=== PATIENT | male | born 1955 | race Caucasian/White ===

== ENCOUNTER 2023-08-15 14:46 | Emergency (ER) | payer MEDICARE, OTHER, SELFPAY ==
[2023-08-15 14:52] VITALS: BP 123/77
--- NOTE | 2023-08-15 15:34 | ED.MUSCINJ ---
HPI-Injury
General
Chief Complaint: Fall
Source: patient
Exam Limitations: none
Time Seen by Provider: 08/15/23 15:20
Nursing documentation reviewed up to this point in time: agreed with
Travel History
Have you had any contact with someone who has COVID-19?: No
Do you have any symptoms of coronavirus? Fever > 100 degrees, chills, cough, shortness of breath, sore throat, loss of taste or smell, muscle aches, or headache?: No
History of Present Illness-Injury
Is this injury a work related problem?: No
Is pt an associate of [facility]?: No
Initial Injury comments:
Patient states he tripped over his dog last PM, landed o left hand. Complains of pain and swelling to left hand. Sustained deep abrasions to his hand 2 days ago working on a machine. Concerned that it is looking red. No fever/chills. Brought to
ED by spouse for eval.
Past History
Past History
ED Past Medical History: GERD, HTN, Other (Multiple sclerosis; previous GI bleeds, Aortic insufficiency, mitral valve prolapse, rheumatic fever, nephrolithiasis), Other (Sepsis, cervicothoracic epidural abscess (MSSA) July 2010, C. difficile,
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
ED Past Surgical History: Cardiac (Aortic valve replacement 2016), Cholecystectomy, Orthopedic (Lumbar laminectomy, right middle toe amputation, bilateral hip replacements x2, bilateral knee replacements x2, right wrist surgery 2008) and Other
(Epidural abscess drainage August 2010 at [facility]; baclofen pump implantation; gastric bypass)
Social History
Tobacco: Former smoker
Alcohol: None
Drug: None
Personal:
Living: with family
Employment: Employed
Family History
Family History: Other (Reviewed and non-contributory)
Review of Systems
Review of Systems
Allergies reviewed?: Yes
All Other Systems: ROS reviewed and negative except as documented in HPI and ROS
Skin: Reports other (Deep abrasions with granulation to left dorsal hand. Mild surrounding erythema to hand, bruising and swelling present. No drainage from wounds)
Neurological: Reports no symptoms
Psychiatric: Reports no symptoms
Musculoskeletal Injury Exam
Musculoskeletal Injury Exam
Left Hand:
Pain with Movement?: Moderate
Tender to palpation?: Moderate
Soft tissue swelling?: Moderate
External deformity and angulation?: None
Joint effusion?: None
Contusion?: Moderate
Hematoma-local bleeding into tissue?: Moderate
Strain- Sprain- Tear (Connective tissue injury)?: Moderate
Crepitus with movement?: No
Joint instability?: No
Malalignment/deformity?: No
Range of motion: Full
Distal skin color and temperature: normal-warm & good color
Capillary Refill: normal
Normal distal neurovascular exam?: Yes
Peripheral Pulses: radial (left): 3+
Skin Exam
Abrasion
Left Dorsal Hand:
Description of abrasion: deep/clean
Phy Exam
General Physical Exam
General Presentation: well appearing and no apparent distress
General age: appears stated age
General Skin: warm and dry
General Habitus: normal
General Mental: alert
Musculoskeletal Exam
Musculoskeletal Exam: neuro vasc intact
Skin Exam
Skin Exam: normal color, warm/dry and no rash
Psychiatric Exam
Psychiatric Exam: normal mood/affect
Injury Course
Orders/Labs/Results
Orders:
Orders
08/15/23 14:57
Hand, Left 3 View [CR Hand - Left Min 3 Views] Urgent
Comment:
Reason For Exam: fall, pain swelling
08/15/23 15:34
Thumb Spica Left-Treatment ONCE
Doxycycline [Vibramycin] 100 mg PO NOW STA
*Radiology
Radiology exam reviewed: radiology read reviewed
*Pulse Oximetry
Patient hypoxic: no
*Critical Care Note
Total Time (30-74mins, 75-104mins- exclusive of procedures): Not Applicable
ED Attending Note
-
Portions of this chart may have been created with voice recognition software.� Occasional wrong word or��sound alike� substitutions may have occurred due to the inherent limitations of voice recognition software.
Discharge Plan
Departure
Patient Disposition: Home (Routine Discharge)
Date of Disposition: 08/15/23
Time of Disposition: 15:57
Patient with high blood pressure during this ER visit?: No
Condition: Good
Covid-19: Not Applicable
Discharge Problem:
Contusion of hand
Instructions: Wound Care (DC), Contusion (DC), Preventing falls in adults
Prescriptions:
New
doxycycline hyclate 100 mg capsule
100 mg PO BID Qty: 14 0RF
No Action
esomeprazole magnesium [Nexium] 40 MG capsule,delayed release(DR/EC)
40 mg PO BID
hydroxychloroquine 200 MG tablet
200 mg PO BID
ondansetron HCl 4 MG tablet
4 mg PO BIDPRN PRN (Reason: nausea)
ferrous sulfate [iron] 325 MG tablet
325 mg PO BID
ergocalciferol (vitamin D2) 50,000 UNITS capsule
50,000 units PO JACOB
venlafaxine [Effexor XR] 150 mg Capsule,Extended Release 24hr
150 mg PO BID
morphine [MS Contin] 15 mg Tablet Extended Release
15 mg PO DAILY@1200
ascorbic acid (vitamin C) [Vitamin C] 1,000 mg Tablet
1,000 mg PO DAILY
carvedilol 6.25 mg Tablet
3.125 mg PO BID
cyanocobalamin (vitamin B-12) 1,000 mcg Tablet
1,000 mcg PO DAILY
losartan 50 mg Tablet
50 mg PO BID
morphine 30 mg tablet extended release
30 mg PO BID@0800,2000
Nayzilam 5 mg/spray (0.1 mL) [place],Non-Aerosol
5 mg INTRANASAL DAILYPRN PRN (Reason: SEIZURE >3MINUTES)
Medical Marijuana
0.5 - 1 ml PO HS
sennosides [senna] 8.6 mg Tablet
8.6 mg PO BIDPRN PRN (Reason: constipation)
sucralfate [Carafate] 1 gram Tablet
0.5 g PO ACHS
clopidogrel [Plavix] 75 mg Tablet
75 mg PO DAILY
amlodipine 5 mg Tablet
5 mg PO BID
baclofen 10 mg Tablet
30 mg PO TID
clotrimazole-betamethasone 1-0.05 % Cream
1 applic TOPICAL BIDPRN PRN (Reason: groin)
diazepam [Valium] 5 mg Tablet
5 mg PO Q6HPRN PRN (Reason: muscle spasms)
oxycodone 5 mg Tablet
5 mg PO Q4HPRN PRN (Reason: break through pains)
modafinil 100 mg Tablet
100 mg PO BID@0800,1200
lamotrigine 100 mg Tablet
100 mg PO BID
Activity Restrictions/Additional Instructions:
Follow up with your family doctor.
Interventions
Interventions:
*Risk Screen - Suicide Last Done: 08/15/23 14:52
*General Assessment Last Done: 08/15/23 14:52
*Neglect/Abuse Screening Last Done: 08/15/23 14:52
Discharge Date and Time
Print Language: HEBREW
--- NOTE | 2023-08-15 15:59 | ED.MUSCINJ ---
HPI-Injury
General
Chief Complaint: Fall
Source: patient
Exam Limitations: none
Time Seen by Provider: 08/15/23 15:20
Nursing documentation reviewed up to this point in time: agreed with
Travel History
Have you had any contact with someone who has COVID-19?: No
Do you have any symptoms of coronavirus? Fever > 100 degrees, chills, cough, shortness of breath, sore throat, loss of taste or smell, muscle aches, or headache?: No
History of Present Illness-Injury
Is this injury a work related problem?: No
Is pt an associate of [facility]?: No
Initial Injury comments:
Patient states
Past History
Past History
ED Past Medical History: GERD, HTN, Other (Multiple sclerosis; previous GI bleeds, Aortic insufficiency, mitral valve prolapse, rheumatic fever, nephrolithiasis), Other (Sepsis, cervicothoracic epidural abscess (MSSA) July 2010, C. difficile,
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
ED Past Surgical History: Cardiac (Aortic valve replacement 2016), Cholecystectomy, Orthopedic (Lumbar laminectomy, right middle toe amputation, bilateral hip replacements x2, bilateral knee replacements x2, right wrist surgery 2008) and Other
(Epidural abscess drainage August 2010 at [facility]; baclofen pump implantation; gastric bypass)
Social History
Tobacco: Former smoker
Alcohol: None
Drug: None
Personal:
Living: with family
Employment: Employed
Family History
Family History: Other (Reviewed and non-contributory)
Injury Course
Orders/Labs/Results
Orders:
Orders
08/15/23 14:57
Hand, Left 3 View [CR Hand - Left Min 3 Views] Urgent
Comment:
Reason For Exam: fall, pain swelling
08/15/23 15:34
Thumb Spica Left-Treatment ONCE
Doxycycline [Vibramycin] 100 mg PO NOW STA
ED Attending Note
-
Portions of this chart may have been created with voice recognition software.� Occasional wrong word or��sound alike� substitutions may have occurred due to the inherent limitations of voice recognition software.
Discharge Plan
Departure
Patient Disposition: Home (Routine Discharge)
Date of Disposition: 08/15/23
Time of Disposition: 15:57
Patient with high blood pressure during this ER visit?: No
Condition: Good
Covid-19: Not Applicable
Discharge Problem:
Contusion of hand
Instructions: Wound Care (DC), Contusion (DC), Preventing falls in adults
Prescriptions:
New
doxycycline hyclate 100 mg capsule
100 mg PO BID Qty: 14 0RF
No Action
esomeprazole magnesium [Nexium] 40 MG capsule,delayed release(DR/EC)
40 mg PO BID
hydroxychloroquine 200 MG tablet
200 mg PO BID
ondansetron HCl 4 MG tablet
4 mg PO BIDPRN PRN (Reason: nausea)
ferrous sulfate [iron] 325 MG tablet
325 mg PO BID
ergocalciferol (vitamin D2) 50,000 UNITS capsule
50,000 units PO JACOB
venlafaxine [Effexor XR] 150 mg Capsule,Extended Release 24hr
150 mg PO BID
morphine [MS Contin] 15 mg Tablet Extended Release
15 mg PO DAILY@1200
ascorbic acid (vitamin C) [Vitamin C] 1,000 mg Tablet
1,000 mg PO DAILY
carvedilol 6.25 mg Tablet
3.125 mg PO BID
cyanocobalamin (vitamin B-12) 1,000 mcg Tablet
1,000 mcg PO DAILY
losartan 50 mg Tablet
50 mg PO BID
morphine 30 mg tablet extended release
30 mg PO BID@0800,2000
Nayzilam 5 mg/spray (0.1 mL) [place],Non-Aerosol
5 mg INTRANASAL DAILYPRN PRN (Reason: SEIZURE >3MINUTES)
Medical Marijuana
0.5 - 1 ml PO HS
sennosides [senna] 8.6 mg Tablet
8.6 mg PO BIDPRN PRN (Reason: constipation)
sucralfate [Carafate] 1 gram Tablet
0.5 g PO ACHS
clopidogrel [Plavix] 75 mg Tablet
75 mg PO DAILY
amlodipine 5 mg Tablet
5 mg PO BID
baclofen 10 mg Tablet
30 mg PO TID
clotrimazole-betamethasone 1-0.05 % Cream
1 applic TOPICAL BIDPRN PRN (Reason: groin)
diazepam [Valium] 5 mg Tablet
5 mg PO Q6HPRN PRN (Reason: muscle spasms)
oxycodone 5 mg Tablet
5 mg PO Q4HPRN PRN (Reason: break through pains)
modafinil 100 mg Tablet
100 mg PO BID@0800,1200
lamotrigine 100 mg Tablet
100 mg PO BID
Activity Restrictions/Additional Instructions:
Follow up with your family doctor.
Interventions
Interventions:
*Risk Screen - Suicide Last Done: 08/15/23 14:52
*General Assessment Last Done: 08/15/23 14:52
*Neglect/Abuse Screening Last Done: 08/15/23 14:52
Discharge Date and Time
Print Language: CHILEAN
[2023-08-15] MEDS: VIBRAMYCIN 100 MG PO (16:14)
[2023-08-15 16:31] VITALS: BP 122/67
== END 2023-08-15 16:32 | disposition home or self-care (01) ==
LOC: EMR 14:46
PROVIDERS: EMERGENCY PHYSICIAN Emergency Medicine; FAMILY PHYSICIAN Family Medicine
DX: S60.222A Contusion of left hand, initial encounter (principal); W01.0XXA Fall on same level from slipping, tripping and stumbling without subsequent striking against object, initial encounter
CPT/HCPCS: 99283; 73130

== ENCOUNTER 2023-11-11 02:14 | Inpatient (IN) | payer MEDICARE, OTHER, SELFPAY ==
[2023-11-10] VITALS (10 sets, daily range): BP systolic 66–94; BP diastolic 43–62; BMI 25.1
[2023-11-10] MEDS: NSS 1000 IV ×2 (22:20→23:13)
[2023-11-10 22:23] LABS: % Basophils 0.3 % (0-2); % Eosinophils 2.8 % (0-6); % Immature Granulocytes 0.3 % (0-0.5); % Lymphocytes 22.6 % (20.5-51.1); % Monocytes 11.4 % (1.7-9.3); % Neutrophils 62.6 % (42.2-75.2); Absolute Eosinophils 0.3 10^3/uL (0-0.7); Absolute Neutrophils 5.6 10^3/uL (1.4-6.5); Hematocrit 36.3 % (39.0-52.0); Hemoglobin 11.3 g/dL (13.0-18.0); Mean Corp Hgb Conc. 31.1 g/dL (33.0-37.0); Mean Corpuscular Hgb 28.5 pg (27.0-31.0); Mean Corpuscular Volume 91.4 fL (80.0-94.0); Mean Platelet Volume 10.2 fL (7.4-10.4); Nucleated Red Blood Cells % 0 % (-); Platelet Count 135 10^3/uL (130-400); Red Blood Cell Count 3.97 10^6/uL (4.70-6.10); Red Cell Dist. Width 16.9 % (11.5-14.5); White Blood Cell Count 8.9 10^3/uL (4.8-10.8)
[2023-11-10 22:37] LABS: ALT (SGPT) 35 U/L (0-50); AST (SGOT) 41 U/L (17-59); Albumin 3.8 g/dl (3.5-5.0); Alkaline Phosphatase 224 U/L (38-126); Blood Urea Nitrogen 47 mg/dl (9-20); Calcium 8.5 mg/dl (8.4-10.2); Carbon Dioxide 27 mmol/L (22-30); Chloride 106 mmol/L (98-107); Estimated Creatinine Clearance 40 ml/min; Glucose 106 mg/dl (70-99); Potassium 3.6 mmol/L (3.5-5.1); Sodium 140 mmol/L (135-145); Total Bilirubin 0.4 mg/dl (0.2-1.3); Total Protein 6.1 g/dl (6.3-8.2); eGFR 49.77
[2023-11-10 22:39] LABS: Alcohol None Detected
--- NOTE | 2023-11-10 23:34 | ED.GENMED ---
Addendum entered and electronically signed by Clitfon Zamudio DO 11/11/23 03:17:
Procedure note intubation
[place] scope 7.5 ET tube,
100 [place] X10 milligrams of etomidate
No complications
Addendum entered and electronically signed by Clifton Zamudio DO 11/11/23 02:37:
ABG noted, patient noncompliant with the BiPAP we will try see if he wakes up if not low threshold to intubate
Original Note:
History of Present Illness
General
Chief Complaint: Blood Pressure Problem
Source: patient and spouse
Exam Limitations: clinical condition and altered mental status
Time Seen by Provider: 11/10/23 22:57
Nursing documentation reviewed up to this point in time: agreed with
History of Present Illness
History of Present Illness:
68-year-old male history of MS, presents with low blood pressure and confusion
Onset earlier today, thought he looked confused about eating, which is not uncommon for him,
No fevers no nausea or vomiting no dark urine, he just finished steroids for hand inflammation condition thinks it was about a week of steroids stopped about 2 days ago prescribed by his neurologist she believes
Not typically on steroids, has had a stroke previously, baseline is able to ambulate and communicate
states that the patient has had sepsis previously not for years, she also pulled a tick off his scalp a few days ago
Past History
Past History
ED Past Medical History: CVA, GERD, HTN, Other (Multiple sclerosis; previous GI bleeds, Aortic insufficiency, mitral valve prolapse, rheumatic fever, nephrolithiasis), Other (Sepsis, cervicothoracic epidural abscess (MSSA) July 2010, C. difficile,
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
ED Past Surgical History: Cardiac (Aortic valve replacement 2016), Cholecystectomy, Orthopedic (Lumbar laminectomy, right middle toe amputation, bilateral hip replacements x2, bilateral knee replacements x2, right wrist surgery 2008) and Other
(Epidural abscess drainage August 2010 at [facility]; baclofen pump implantation; gastric bypass)
Social History
Tobacco: Former smoker
Alcohol: None
Drug: None
Personal:
Living: with family
Employment: Employed
Family History
Family History: Other (Reviewed and non-contributory)
Review of Systems
Review of Systems
All Other Systems: Not applicable
Constitutional: Denies fever or fatigue
Respiratory: Reports no symptoms
Cardiac: Reports no symptoms
ABD/GI: Reports no symptoms
: Reports no symptoms
Phy Exam
Physical Exam
Physical Exam:
Physical Exam
General: Lethargic ill-appearing male hypotensive
Neck: Lips are dry
Heart: Regular
Lungs: No wheezing
Abdomen: Soft
Neuro: Responds to painful stimuli
Skin: no rash
Psychiatric: Unable to assess
Extremities: no edema.
Course
Orders/Labs/Results
Orders:
Orders
11/10/23 22:16
Alcohol Urgent
Complete Blood Count/With Diff Urgent
Comprehensive Metabolic Panel Urgent
Cortisol, Random Urgent
Comment: ADD ON
TSH Urgent
Comment: ADD ON
11/10/23 22:18
Add On- LAB Urgent
Tests Added?: alcohol level
11/10/23 22:20
0.9% Sodium Chloride 1000 ml [Nss] 1,000 ml IV BOLUS
11/10/23 23:07
Rectal Temp- Treatment ONCE
11/10/23 23:08
Add On- LAB Urgent
Tests Added?: cortisol
Straight cath- Treatment ONCE
0.9% Sodium Chloride 1000 ml [Nss] 1,000 ml IV BOLUS
CR Chest Portable - 1 View Urgent
Comment:
Reason For Exam: sepsis
Reason Study Needs to be Portable: Patient Unstable
11/10/23 23:09
Electrocardiogram (*1) Urgent
Reason for Study: Abdominal Pain
EKG- Treatment ONCE
Hydrocortisone Sod Succinate [Solu-Cortef] 100 mg IV NOW STA
11/10/23 23:11
Troponin I Urgent
11/10/23 23:31
Add On- LAB Urgent
Tests Added?: tsh
Piperacillin/Tazo 3.375 Gram [Zosyn] 3.375 gram in 50 ml IV NOW
11/10/23 23:36
Urinalysis Reflex To Culture Urgent
Date Specimen was Collected: 11/10/23
Time Specimen was Collected: 23:28
Urine Microscopic Reflex Cult Urgent
Urine Culture Urgent
CHRISTINA Source: U
Specimen Description:
Date Specimen was Collected: 11/10/23
Time Specimen was Collected: 23:28
11/11/23 00:03
CT Abd/pel Without Iv Or Oral Urgent
Reason For Exam: arf ? sepsis
CT Head W/o Iv Contrast Urgent
Reason For Exam: coma
11/11/23 00:56
ABG [Arterial Blood Gas] Urgent
%Oxygen/Room Air: ra
11/11/23 01:00
NORepinephrine 4 MG/250 ML [Levophed] 4 mg in 250 ml IV PER PROTOCOL
Initial dose in mcg/min, then titrate:: 2
Titrate to keep:: SBP > 90 mmHg
Titrate by mcg/min:: 1-2 mcg/min
Frequency of titrations (minutes):: 5
Maximum dose in ICU in mcg/min:: 30
Maximum dose in IMU in mcg/min:: 8
Maximum dose in IVU in mcg/min:: 4
Begin to taper infusion when:: Remained at goal for 4hrs
Taper by mcg/min:: 1-2 mcg/min
Frequency of taper (minutes) if patient maintains goal:: 30
Taper to off?: Yes
If infusion off & no longer maintaining goal:: Contact Provider
Abnormal Lab Results
11/10/23 11/10/23
22:16 23:36
RBC 3.97 L 10^6/uL
(4.70-6.10)
Hgb 11.3 L g/dL
(13.0-18.0)
Hct 36.3 L %
(39.0-52.0)
MCHC 31.1 L g/dL
(33.0-37.0)
RDW 16.9 H %
(11.5-14.5)
Absolute Monos (auto) 1.0 H 10^3/uL
(0.1-0.6)
Monocytes % 11.4 H %
(1.7-9.3)
BUN 47 H mg/dl
(9-20)
Creatinine 1.5 H mg/dL
(0.7-1.3)
Glucose 106 H mg/dl
(70-99)
Alkaline Phosphatase 224 H U/L
(38-126)
Total Protein 6.1 L g/dl
(6.3-8.2)
Urine Ketones Trace A
(Negative)
Leukocyte Esterase Rfl Trace A
(Negative)
Urine Bacteria (Reflex) Moderate A
(Negative)
11/10/23 22:16
11/10/23 22:16
Vital Signs
Initial and Last Documented VS:
Initial Vital Signs
Temp Pulse Resp BP Pulse Ox
97.8 F 66 10 86/57 99
11/10/23 22:04 11/10/23 22:04 11/10/23 22:04 11/10/23 22:04 11/10/23 22:04
Last Documented Vital Signs
Temp Pulse Resp BP Pulse Ox
96.9 F L 67 12 100/65 99
11/10/23 23:27 11/11/23 01:15 11/11/23 01:15 11/11/23 01:15 11/11/23 01:15
MDM/Problems Addressed
Differential Diagnosis Includes:
Hypotension concern for sepsis adrenal insufficiency cardiac GI bleeding
MDM/Problems Addressed:
Low blood pressure confusion
Chronic conditions affecting care: Neurological disorder
Acute Exacerbation and/or Progression of Chronic Illness: Neurological disorder
*Radiology
Radiology exam reviewed: preliminary read by ED provider
*Pulse Oximetry
Patient hypoxic: no
*EKG
Interpreted by ED Provider?: Yes
Interpretation: abnormal
Comparison EKG: no comparison EKG present
Heart Rate: 78
Rate: normal
Rhythm: sinus
Ischemia: non-specific ST changes
*Hypo Dipper Interpretation
Rate: normal
Interpretation: normal
Heart Rate: 78
Rhythm: sinus
*Critical Care Note
Total Time (30-74mins, 75-104mins- exclusive of procedures): 45
comment:
CRITICAL CARE STATEMENT: A total of 45 minutes of critical care time was provided for this patient. This includes management of unstable vital signs, evaluation of the patient at bedside, reviewing the patient's pertinent medical records discussion
with EMS providers and patient's family in addition to discussion with consultants, review of old EKGs and review of pertinent medical records. This time with separate from time utilized to perform the aforementioned documented procedures
Patient Management
Social determinants of health affecting care: Living situation and Strong social support
Escalation/DeEscalation of care consider admission/obs:
Patient will certainly require admission
Update Note
Update Note:
Patient will receive 30 cc/kg fluid bolus, broad-spectrum antibiotics rest of steroids, CT of the head believe stroke is unlikely CT of the abdomen to rule out hydro or obstructing stone
ED Attending Note
-
Portions of this chart may have been created with voice recognition software.� Occasional wrong word or��sound alike� substitutions may have occurred due to the inherent limitations of voice recognition software.
Discharge Plan
Departure
Patient Disposition: Admit
Date of Disposition: 11/11/23
Time of Disposition: 00:58
Admit to: ICU
Presentation/result/management discussed w/ accepting MD/DO: Hospitalist
Patient with high blood pressure during this ER visit?: No
Condition: Serious
Covid-19: Not Applicable
Discharge Problem:
Multiple sclerosis, Altered mental status, Sepsis syndrome
Prescriptions:
No Action
esomeprazole magnesium [Nexium] 40 MG capsule,delayed release(DR/EC)
40 mg PO BID
hydroxychloroquine 200 MG tablet
200 mg PO BID
ondansetron HCl 4 MG tablet
4 mg PO BIDPRN PRN (Reason: nausea)
ferrous sulfate [iron] 325 MG tablet
325 mg PO BID
ergocalciferol (vitamin D2) 50,000 UNITS capsule
50,000 units PO ARAMBULA
venlafaxine [Effexor XR] 150 mg Capsule,Extended Release 24hr
150 mg PO BID
morphine [MS Contin] 15 mg Tablet Extended Release
15 mg PO DAILY@1200
ascorbic acid (vitamin C) [Vitamin C] 1,000 mg Tablet
1,000 mg PO DAILY
carvedilol 6.25 mg Tablet
3.125 mg PO BID
cyanocobalamin (vitamin B-12) 1,000 mcg Tablet
1,000 mcg PO DAILY
losartan 50 mg Tablet
50 mg PO BID
morphine 30 mg tablet extended release
30 mg PO BID@0800,2000
Nayzilam 5 mg/spray (0.1 mL) [place],Non-Aerosol
5 mg INTRANASAL DAILYPRN PRN (Reason: SEIZURE >3MINUTES)
Medical Marijuana
0.5 - 1 ml PO HS
sennosides [senna] 8.6 mg Tablet
8.6 mg PO BIDPRN PRN (Reason: constipation)
sucralfate [Carafate] 1 gram Tablet
0.5 g PO ACHS
clopidogrel [Plavix] 75 mg Tablet
75 mg PO DAILY
amlodipine 5 mg Tablet
5 mg PO BID
baclofen 10 mg Tablet
30 mg PO TID
clotrimazole-betamethasone 1-0.05 % Cream
1 applic TOPICAL BIDPRN PRN (Reason: groin)
diazepam [Valium] 5 mg Tablet
5 mg PO Q6HPRN PRN (Reason: muscle spasms)
oxycodone 5 mg Tablet
5 mg PO Q4HPRN PRN (Reason: break through pains)
modafinil 100 mg Tablet
100 mg PO BID@0800,1200
lamotrigine 100 mg Tablet
100 mg PO BID
doxycycline hyclate 100 mg capsule
100 mg PO BID Qty: 14 0RF
Interventions
Interventions:
*Risk Screen - Suicide Last Done: 11/10/23 22:08
*General Assessment Last Done: 11/10/23 22:08
*Neglect/Abuse Screening Last Done: 11/10/23 22:08
*ED COVID-19 Vaccine History Last Done: 11/10/23 22:08
ED- Cardiac Assessment Last Done: 11/10/23 22:15
ED- Neurological Assessment Last Done: 11/10/23 22:15
ED- Pulmonary Assessment Last Done: 11/10/23 22:15
Discharge Date and Time
Print Language: GUATEMALAN
[2023-11-10] MEDS: SOLU-CORTEF 100 MG IV (23:39)
[2023-11-10] MEDS: ZOSYN 50 IV (23:40)
[2023-11-10 23:42] LABS: Troponin I < 0.012 ng/ml
[2023-11-10 23:46] LABS: Urine Albumin Negative (Neg - Trace); Urine Bilirubin Negative (Negative); Urine Character Clear (Clear); Urine Color Amber; Urine Glucose Negative (Negative); Urine Ketone Trace (Negative); Urine Leukocyte Trace (Negative); Urine Nitrite Negative (Negative); Urine Occult Blood Negative (Negative); Urine Specific Gravity 1.025 (<1.030); Urine Urobilinogen 1+ (Neg - 1+)
[2023-11-11] VITALS (44 sets, daily range): BP systolic 70–151; BP diastolic 45–84; BMI 25.7
[2023-11-11 00:23] LABS: Urine Calcium Oxalate Crystals Seen; Urine Hyaline Cast >15 /LPF (0-2); Urine Mucus Moderate; Urine Squamous Cell >30 /LPF (Few)
[2023-11-11 00:24] LABS: Urine Bacteria Moderate (Negative); Urine Red Blood Cell 0-2 /HPF (0-2)
[2023-11-11] MEDS: LEVOPHED 250 IV (01:02)
--- NOTE | 2023-11-11 01:43 | HPS.HSE ---
Addendum entered and electronically signed by David Horton MD 11/11/23 18:50:
Correction and addendum
Shock pathophysiology with hypothermia
DDX; Septic shock vs. secondary acute adrenal insufficiency due to sudden withdrawal of steroids
Currently source of sepsis is uncertain but at risk for hardware infection ( multiple in him)
- <del>BCx</del> <del>sent.</del>
- held all anti HTN Meds ( Amlodipine, carvedilol, losartan, )
- Septic fluid bolus with IV LR
- Empiric IV Zosyn was ordered and given by ER a at 2331 Hr 11/09/22
- cont stress dose IV hydrocortisone
- cont. pressor support with NE gtt
- warming blanket
- ID consult
- Five Piece Expansion Maker Hand consult
Noodle Press Operator saw patient and evaluated at 0143H 11/10/22
Addendum entered and electronically signed by David Horton MD 11/11/23 02:31:
ABG : 7.28 pCO2 50, pO2 120
Primary metabolic acidosis due to sepsis
Obtunded TME in shock pathophysiology
HX MS
Multiple hardware in his body ( Joints, valvular dz, bovine AoVR)
Patient cannot protect airway
Noodle Press Operator d /w ER attd and spouse and she agree for intubation and ER attd
- Intubate to protect and vent support
Original Note:
Family Physician
-
Family Physician: Berry Valderrama
Chief Complaint
-
low BP and AMS
History of Present Illness
67M HX MS, AVR bovine valve, seizure disorder, cervicothoracic MSSA epidural abscess, gastric bypas surgery seen at ER
Evaluation for AMS and hypotension and low temp
- found him decreased mentation and less responsive
- checked the BP and noted low BP and she called EMS
- [facility] BP was as low as 87/48 at ER
- Earlier , noted he is confused
- HX MS; Recent MS flare with sensory symptoms of Rt hand treated with steroids for 1 week and stopped 2 days ago
Rx at ER
stress dose IV hydrocortisone 100mg x1
NS bolus 1 L
NE gtt
IV Zosyn
Medical History
Past Medical History
Past Medical History: Reports GERD and HTN
Additional Past Medical History:
Multiple sclerosis; previous GI bleeds, Aortic insufficiency, mitral valve prolapse, rheumatic fever, Sepsis, cervicothoracic epidural abscess (MSSA) July 2010, Gout
Past Surgical History: Reports Other
Additional Past Surgical History:
Cardiac (Heart valve replaced), Orthopedic (Lumbar laminectomy, right middle toe amputation ), Other (Epidural abscess drainage August 2010 at [facility]; baclofen pump implantation; gastric bypass)
Social History
Tobacco: Former Smoker
Drug: None
Personal:
Living: With Family
Family History
Family History: Not pertinent
Allergies / Home Medications
Allergies reflects when Allergies were last updated in [facility].
Home Medications with original date entered in [facility]
Allergy/Medication List:
Allergies
Allergy/AdvReac Type Severity Reaction Status Date / Time
CHANDLER Inhibitors Allergy COUGH Verified 12/30/21 13:29
cephalexin monohydrate Allergy Rash/tolerated Verified 01/01/22 11:46
[From Keflex] Zosyn
quinapril HCl [From Accupril] Allergy COUGH--CHANDLER Verified 12/30/21 13:29
INHIBITORS
Home Medications
Baclofen Pump [Patient's Own Baclofen Pump:] 0 ea SC ACHS Pain 09/27/14
esomeprazole magnesium 40 mg capsule,delayed release (Nexium) 40 mg PO NOON Gastrointestinal issue 09/27/14
hydroxychloroquine 200 mg tablet 200 mg PO BID Autoimmune disorder 09/27/14
tizanidine 4 mg tablet 8 mg PO Q6H Muscle spasms 09/27/14
morphine 15 mg tablet,extended release 30 mg PO BID Pain 07/30/15
ondansetron HCl 4 mg tablet 4 mg PO BIDPRN PRN nausea 03/28/19
ferrous sulfate 325 mg (65 mg iron) tablet (iron) 325 mg PO BID Supplement 06/27/21
ergocalciferol (vitamin D2) 1,250 mcg (50,000 unit) capsule 50,000 units PO JACOB Supplement 08/10/21
glatiramer 40 mg/mL subcutaneous syringe (Copaxone) 40 mg SC MOWEFR Neurological Condition 12/19/21
morphine 15 mg tablet,extended release (MS Contin) 15 mg PO DAILY@1200 Pain 12/19/21
venlafaxine 150 mg capsule,extended release 24 hr (Effexor XR) 150 mg PO BID Depression 12/19/21
ascorbic acid (vitamin C) 1,000 mg tablet (Vitamin C) 1,000 mg PO DAILY Supplement 12/30/21
carvedilol 6.25 mg tablet 6.25 mg PO BID Heart Failure 12/30/21
carvedilol 6.25 mg tablet 6.25 mg PO DAILYPRN PRN sbp>160 12/30/21
cyanocobalamin (vitamin B-12) 1,000 mcg tablet 1,000 mcg PO BID Supplement 12/30/21
levetiracetam 750 mg tablet,extended release 24 hr 750 mg PO BID Neurological Condition 12/30/21
oxycodone 15 mg tablet 15 mg PO Q4H PRN pain 12/30/21
amoxicillin 875 mg-potassium clavulanate 125 mg tablet 1 tab PO Q12H #20 tabs 01/01/22
Review of Systems
-
Constitutional: Reports See HPI and Other (hypothermia )
EENT: Reports No Symptoms
Respiratory: Reports No Symptoms
Cardiac: Reports Diaphoresis
Abdomen/GI: Reports No Symptoms
: Reports No Symptoms
Musculoskeletal: Reports No Symptoms
Skin: Reports No Symptoms
Neurological: Reports Other (lethargy )
Endocrine: Reports No Symptoms
Hematologic/Lymphatic: Reports No Symptoms
Psych: Reports No Symptoms
Physical Exam
Vital Signs
Vital Signs
Temp Pulse Resp BP Pulse Ox
96.9 F L 67 12 100/65 99
11/10/23 23:27 11/11/23 01:15 11/11/23 01:15 11/11/23 01:15 11/11/23 01:15
Physical Exam
General: Other (minimally resposnive )
HEENT: Moist mucous membranes (dry om )
Respiratory: Clear
Cardiac: S1/S2 and Regular Rhythm
Breast: Deferred by me
GI: Soft, Non Tender and Non Distended
Genito-urinary: Deferred by me
Musculoskeletal: No Edema
Skin: Warm
Neuro: Other (obdunted )
Laboratory Results
-
11/10/23 22:16
11/10/23 22:16
Laboratory Results
Total Bilirubin 0.4 mg/dl (0.2-1.3) 11/10/23 22:16
AST 41 U/L (17-59) 11/10/23 22:16
ALT 35 U/L (0-50) 11/10/23 22:16
Alkaline Phosphatase 224 U/L (38-126) H 11/10/23 22:16
Troponin I < 0.012 ng/ml 11/10/23 23:11
Data Reviewed
-
CT Scan: Report Reviewed by me
Medical Tests (Nuc Med, Echo, EKG etc): Report Reviewed by me
Lab Data: Labs Reviewed by me
Old Records: Reviewed
Impression/Plan
-
Reviewed VS: T 96.9 BP 87/48 --> 95/55
Data
nl WCC
Hgb 11.3
BUN 47
Cr 1.5 - baseline 0,7
Pending random cortisol
NEG TPNI
Unremarkable UA
NEG ETOH
Pending ABG
HCT: No acute ICH, likely small vessel dz
EKG report
SINUS RHYTHM WITH 1ST DEGREE A-V BLOCK
POSSIBLE LEFT ATRIAL ENLARGEMENT
LEFT AXIS DEVIATION
ABNORMAL ECG
WHEN COMPARED WITH ECG OF 04-MAR-2023 21:06,
PREMATURE VENTRICULAR COMPLEXES ARE NO LONGER PRESENT
Last hospitalist admission: 03/04/23 - 03/05/23 P Dxs
1. Altered mental status.
ASSESSMENT & PLAN
Pending Rx reconciliation
Shock pathophysiology with hypothermia
DDX; Septic shock vs. secondary acute adrenal insufficiency due to sudden withdrawal of steroids
Currently source of sepsis is uncertain but at risk for hardware infection ( multple in him)
- BCx sent
- held all anti HTN Meds ( Amlodipine, carvedilol, losartan, )
- Septic fluid bolus with IV LR
- Empiric IV Zosyn plus added IV vancomycin
- cont stress dose IV hydrocortisone
- cont. pressor support with NE gtt
- warming blanket
- ID consult
- Five Piece Expansion Maker Hand consult
Obtunded encephalopathy - infective vs metabolic
- held Valium, Morphine
- NPO for now
- speech to eval when he becomes more alert
- fall precaution
- Observe MS with above plan
CRISTELA due to sepsis
- IV LR
- f/u Cr in AM
Bovine AVR for HX
HX MVP
HX Rheumatic fever
HX cervicothoracic epidural abscess (MSSA) July 2010
HX Meningitis
- Eval for endocarditis
- ECHO ( No prior ECHO in [facility] )
HX MS
Recent MS flare with sensory symptoms of Rt hand treated with steroids for 1 week and stopped 2 days ago
- stable at this time
- Baclofen pump was removed
HX prior GIB
HX Gout
HX GBS ( gastric bypass surgery)
HX prior GIB
HX Gout
HX GBS ( gastric bypass surgery)
DVT Px: SCD
Code: Full code
ICU
Total Critical Care Time__45___ minutes.
I was immediately available to the patient and staff. I personally examined, reviewed labs, diagnostic images/reports, interpretations, treatment plans, discussed patient care with other providers and family or caregivers (if patient is unable to
make decisions), entered orders as appropriate and documented the medical record.
[2023-11-11 01:45] LABS: B.E. -3.5 mmol/L; HCO3 23.5 mmol/L (21-28); O2 Saturation % 97.9 % (94-98); PCO2 50 mmHg (35-48); PO2 124 mmHg (83-108); pH 7.28 (7.35-7.45)
[2023-11-11 01:47] LABS: O2 Therapy ROOM AIR
[2023-11-11 02:50] LABS: Cortisol, Random 12.7 ug/dl; TSH 1.25 uIU/ml (0.47-4.68)
[2023-11-11] MEDS: DIPRIVAN 100 IV (03:21)
[2023-11-11 03:37] LABS: INR 1.21; PT 15.1 Sec (11.4-14.6)
[2023-11-11 03:44] LABS: Lactic Acid 0.6 mmol/L (0.7-2.0); Magnesium 2.2 mg/dl (1.6-2.3); Phosphorus 4.4 mg/dl (2.5-4.5); Triglycerides 68 mg/dl (10-149)
--- NOTE | 2023-11-11 03:50 | PTCARENOTE ---
Rec'd pt from ER via stretcher on monitor, on diprivan at 10mic & levo at 2 varghese, on vent accomp by RN & resp therapist, CHG bath done on adm, pt lethargic but arousable, PANTERA at 2mm, wrists restrained for pt safety, Fent 50 varghese iv given for pain at
0420,SR/ SB w/ occas pac, To keep sbp > 90 w/ levophed- see flow sheet for titrations, Left rad pamela inserted at 0500 by Keara Lopez NP, zeroed flushes well, accurate to cuff, weak distal pulses, + LE edema, skin warm/dry, #7.5 oral ett- 25 cm
left lip, ac 12, tv 450, 5 peep, 50%, sat 99, lungs coarse,lips w/ abrasions from intubation per MEDICAL TRANSPORT SPECIALIST, hypo bowel sounds, no bm, abd soft, no vomiting, # 16 fr thermister bar inserted-under sterile technique- clear yellow uirne
[2023-11-11] MEDS: LR 1000 IV ×3 (04:03→23:01)
[2023-11-11 04:09] LABS: Hematocrit 36.5 % (39.0-52.0); Hemoglobin 11.9 g/dL (13.0-18.0); Mean Corp Hgb Conc. 32.6 g/dL (33.0-37.0); Mean Corpuscular Hgb 28.7 pg (27.0-31.0); Mean Platelet Volume 10.8 fL (7.4-10.4); Platelet Count 152 10^3/uL (130-400); Red Blood Cell Count 4.15 10^6/uL (4.70-6.10); White Blood Cell Count 8.2 10^3/uL (4.8-10.8)
[2023-11-11 04:20] LABS: INR 1.24; PT 15.4 Sec (11.4-14.6)
[2023-11-11] MEDS: VANCOCIN 300 MG IV (04:20)
[2023-11-11] MEDS: VANCOCIN 300 ML IV (04:20)
[2023-11-11 04:21] LABS: APTT 35.5 Sec (23.4-35.0)
[2023-11-11] MEDS: SUBLIMAZE 50 MCG IV (04:21)
[2023-11-11 04:45] LABS: Magnesium 2.2 mg/dl (1.6-2.3); Phosphorus 4.6 mg/dl (2.5-4.5)
--- NOTE | 2023-11-11 04:51 | W.PN.UPDATE ---
Update Note
Progress Note Update
Procedure Note: Arterial Line�
� Left Wrist Arrow 20 (07/20)�
Diagnosis:��Septic shock
IV Line Comments: Uneventful Procedure�
Quinton's test completed pre-procedure: Yes�
A-Line Comments: Sterile technique as per standard protocol, Ultrasound guided insertion�
Functioning A-line in situ: Yes�
A-line Insertion Start Time:�0440�
A-line in at:��0445
[2023-11-11 05:25] LABS: B.E. -3.2 mmol/L; HCO3 23.2 mmol/L (21-28); Ionized Calcium 1.13 mMOL/L (1.15-1.33); O2 Saturation % 98.8 % (94-98); PCO2 46 mmHg (35-48); PO2 215 mmHg (83-108); Sodium 137 mMOL/L (136-145); pH 7.31 (7.35-7.45)
[2023-11-11] MEDS: ZOSYN 50 IV ×4 (06:05→23:03)
[2023-11-11 06:06] LABS: O2 Therapy 60%
--- NOTE | 2023-11-11 06:11 | PTCARENOTE ---
Monica anaya on
--- NOTE | 2023-11-11 06:27 | PTCARENOTE ---
fio2 decr to 40% and Ac incr to 14 by resp therapist per order
--- NOTE | 2023-11-11 07:19 | CON.INTV ---
Consultation
Consultation Request
Date/Time Consultation Requested: 11/11/23
Date/Time Consultation Performed: 11/11/23
Requesting Provider:
Performing Provider: Dr. Reno
Reason for Consultation: Hypercapnic respiratory failure
Medical History
-
Chief Complaint: Altered mental status, hypotensive
Past Medical History
Past Medical History: HTN, Valvular Disease (AVR) and Other (MS)
Past Surgical History: Cardiac (AVR), Orthopedic ( bilateral hip replacements x2, bilateral knee replacements x2) and Other (Orthopedic (Lumbar laminectomy, right middle toe amputation ), Other (Epidural abscess drainage August 2010 at [facility]; baclofen pump implantation; gastric bypass))
Social History
Tobacco: Former Smoker
Drug: None
Personal:
Living: With Family
Family History
Family History: Reviewed & Not Pertinent
Allergies / Home Medications
Allergies
Allergy/AdvReac Type Severity Reaction Status Date / Time
CHANDLER Inhibitors Allergy COUGH Verified 08/15/23 14:52
cephalexin monohydrate Allergy Rash/tolerated Verified 08/15/23 14:52
[From Keflex] Zosyn
quinapril HCl [From Accupril] Allergy COUGH--CHANDLER Verified 08/15/23 14:52
INHIBITORS
Home Medications
�Medication �Instructions �Recorded �Confirmed �Last Taken �Type
esomeprazole magnesium 40 mg 40 mg PO BID Gastrointestinal issue 09/27/14 03/04/23 03/03/23 History
capsule,delayed release (Nexium)
hydroxychloroquine 200 mg tablet 200 mg PO BID Autoimmune disorder 09/27/14 03/04/23 03/03/23 History
ondansetron HCl 4 mg tablet 4 mg PO BIDPRN PRN nausea 03/28/19 03/04/23 05/15/21 History
ferrous sulfate 325 mg (65 mg 325 mg PO BID Supplement 06/27/21 03/04/23 03/03/23 History
iron) tablet (iron)
ergocalciferol (vitamin D2) 1,250 50,000 units PO JACOB Supplement 08/10/21 03/04/23 03/02/23 History
mcg (50,000 unit) capsule
morphine 15 mg tablet,extended 15 mg PO DAILY@1200 Pain 12/19/21 03/04/23 03/03/23 History
release (MS Contin)
venlafaxine 150 mg 150 mg PO BID Depression 12/19/21 03/04/23 03/03/23 History
capsule,extended release 24 hr
(Effexor XR)
ascorbic acid (vitamin C) 1,000 mg 1,000 mg PO DAILY Supplement 12/30/21 03/04/23 03/04/23 History
tablet (Vitamin C)
carvedilol 6.25 mg tablet 3.125 mg PO BID Heart 12/30/21 03/04/23 03/03/23 History
Disease/Condition
cyanocobalamin (vitamin B-12) 1,000 mcg PO DAILY Supplement 12/30/21 03/04/23 03/03/23 History
1,000 mcg tablet
Medical Marijuana 0.5 - 1 ml PO HS Pain 07/21/22 03/04/23 03/03/23 History
losartan 50 mg tablet 50 mg PO BID Blood Pressure 07/21/22 03/04/23 03/03/23 History
midazolam 5 mg/spray (0.1 mL) 5 mg intranasal DAILYPRN PRN 07/21/22 03/04/23 Unknown History
nasal spray (Nayzilam) SEIZURE >3MINUTES
morphine 30 mg tablet,extended 30 mg PO BID@0800,2000 Pain 07/21/22 03/04/23 03/03/23 History
release
amlodipine 5 mg tablet 5 mg PO BID Blood Pressure 03/04/23 03/04/23 03/03/23 History
baclofen 10 mg tablet 30 mg PO TID Muscle Spasms 03/04/23 03/04/23 03/03/23 History
clopidogrel 75 mg tablet (Plavix) 75 mg PO DAILY Blood Clot 03/04/23 03/04/23 03/03/23 History
Prevention/Tx
clotrimazole-betamethasone 1 1 applic topical BIDPRN PRN groin 03/04/23 03/05/23 Unknown History
%-0.05 % topical cream
diazepam 5 mg tablet (Valium) 5 mg PO Q6HPRN PRN muscle spasms 03/04/23 03/04/23 Unknown History
lamotrigine 100 mg tablet 100 mg PO BID Seizures 03/04/23 03/04/23 Unknown History
modafinil 100 mg tablet 100 mg PO BID@0800,1200 03/04/23 03/04/23 03/03/23 History
Neurological Condition
oxycodone 5 mg tablet 5 mg PO Q4HPRN PRN break through 03/04/23 03/04/23 Unknown History
pains
sennosides 8.6 mg tablet (senna) 8.6 mg PO BIDPRN PRN constipation 03/04/23 03/04/23 Unknown History
sucralfate 1 gram tablet (Carafate) 0.5 g PO ACHS Gastrointestinal 03/04/23 03/04/23 03/03/23 History
Issue
doxycycline hyclate 100 mg capsule 100 mg PO BID #14 caps 08/15/23 Unknown Rx
Review of Systems
-
Unable to Obtain full review of systems at this time due to: Patient Intubation
Vitals / Labs / Diagnostic Testing
Vital Signs
Temp Pulse Resp BP Pulse Ox
97 F 68 12 118/67 100
11/11/23 07:00 11/11/23 06:15 11/11/23 06:15 11/11/23 06:00 11/11/23 06:15
Lab Data
11/11/23 04:01
11/10/23 22:16
Laboratory Results
11/11/23 11/11/23 11/11/23
01:36 03:18 04:01
PT 15.1 H 15.4 H
INR 1.21 1.24
APTT 34.0 35.5 H
pH 7.28 L
pCO2 50 H
pO2 124 H
HCO3 23.5
O2 Delivery Level Room air
11/11/23
05:19
PT
INR
APTT
pH 7.31 L
pCO2 46
pO2 215 H
HCO3 23.2
O2 Delivery Level 60%
Diagnostic Testing:
Physical Exam
-
HEENT: Normocephalic
Cardiovascular: S1/S2 and Regular Rhythm
Respiratory: Other (mechanical breath sounds)
GI: Soft, Non Distended and Non Tender
Neurology: Other (intubated, sedated)
General: Fever (negative) and Chills (negative)
Assessment
-
ASSESSMENT: This is a 68 year old male patient with PMH of MS, seizure disorder, AVR, prior CVA, HTN, cervicothoracic epidural abscess (MSSA) July 2010 was brought to the ED accompanied by when she noticed that patient was not responsive and
was hypotensive. He does not use CPAP machine regularly at home. In the ED, ABG showed 7.28 pH and CO2 50, patient was intubated and transferred to ICU.
IMPRESSION:
Acute hypercapnic respiratory failure
CRISTELA
Hypotensive
Conditions ASP NET SOFTWARE DEVELOPER
Multiple sclerosis
JOYCE
Previous GI bleeds
Aortic insufficiency
Mitral valve prolapse
Rheumatic fever
Cervicothoracic epidural abscess (MSSA) July 2010
Gout
PLAN:
CT head on 11/10 showed no intracranial abnormalities
Continue pain management and sedation with fentanyl and propofol (wean propofol for SBT)
Resume MS medication
EKG on 11/09 showed first degree AV block
Currently on Levophed 2 mg
BNP ordered�?Volume overloaded/pulmonary edema
Hold home antihypertensive
Prior echocardiogram in 2010 negative
Echocardiogram ordered
On mechanical ventilation
Initiated SBT, wean sedation
Speech evaluation if SBT successful
CXR: mild interstitial airspace disease and retrocardiac left base which may be atelectasis or interstitial pneumonia
ABG on adm: 7.28, 50, 124, 23.5
Repeat ABG today: 7.31, 46, 215, 23.2
Does not use CPAP machine regularly, recommended that patient's bring in home device to the hospital
Sputum culture ordered
CT abdomen on 11/10�negative
Alk phos 224, normal LFTs�possible acute phase reactant
N.p.o. currently, speech evaluation after SBT
CRISTELA
Continue Fisher
Creatinine 1.5 today (baseline 0.7)
Continue IVF (LR at 125)
Monitor electrolytes
Blood cultures pending
Hemoglobin stable at 11.9
ID consulted-started doxycycline due to tick bite recently
Continue IV Zosyn and vancomycin
Possible D/C antibiotics if blood cultures negative and WBC stable
Not likely acute adrenal insufficiency, patient was on low-dose steroid taper that was completed prior to admission
Discontinue IV hydrocortisone
Continue PPI prophylaxis
DVT prophylaxis: Subcutaneous heparin
[2023-11-11] MEDS: PROTONIX IV 40 MG IV (08:03)
[2023-11-11] MEDS: SOLU-CORTEF 100 MG IV (08:07)
[2023-11-11] MEDS: NSS (PRESERVATIVE FREE) 10 ML IV (08:07)
--- NOTE | 2023-11-11 08:42 | W.PN.UPDATE ---
Update Note
Progress Note Update
Non-billable note
Seen and examined
1. Shock - septic vs other -continue small dose of Levophed. WBC normal/afebrile. Chest x-ray questioning mild interstitial pneumonia. UA showing moderate bacteriuria. CT abdomen pelvis did not show any acute abnormality. Will check for
COVID/flu with x-ray changes/confusion. Patient with history of cervical fusion. Patient had baclofen pump placed x 3 with explantation (last one in January 08) due to meningitis. Spouse reported to be E. coli. Will be important to rule out any
bacteremia. No blood culture collected by ER/admitting doctor before antibiotics provided, blood culture ordered at this point. Of note with patient need of steroid over the years with MS flareup would need to monitor for adrenal insufficiency if
remains hypotensive. Currently on IV hydrocortisone/stress dosing.
2. CRISTELA -baseline creatinine of 0.5. Currently creatinine elevated to 1.5. Presumed prerenal. Fisher catheter in place. CT abdomen pelvis did not show any renal issues. UA neg for proteinuria
3. Acte TME -presumed from sepsis versus polypharmacy related. Being treated for underlying issues. Patient takes MS Contin 50 mg 3 times daily. Oxycodone 5 mg every 4 hours as needed and valium 5mg q6h prn(needs all doses most of the time),
4. Relapsing remitting multiple sclerosis -patient has been diagnosed for 20 years and was recently given 7 days of steroid course for suspected MS flare up -Main symptom was bilateral hand numbness tingling. Patient does have chronic cervical
spinal issue and some amount of chronic neuropathic changes in bilateral upper extremity although symptoms where out of usual pattern rapidly worsening enthesis was given course of steroid. Follows up with Dr. heller.
5. Chronic pain narcotic dependence -show patient on complex regimen of pain medication. Unfortunately patient likely have significant pain issue as evident from attempted baclofen pump placement x3 in past. Difficult situation as patient
probably would not be able to function without high-dose of pain medication. Remains at high risk for confusion/respiratory arrest from requirement of high doses of oral pain medication regimen
Discussed with Radio Mechanic Helper/RN/Pharamcy.
Family at bedside and updated about care plan as well.
--- NOTE | 2023-11-11 09:01 | CON.ID ---
Consultation
-
Date/Time Consultation Requested: November 11, 2023 0341
Date/Time Consultation Performed: November 11, 2023 0900
Requesting Provider: Dr. David Horton
Performing Provider: Dr. Ana Peraza
Reason for Consultation: Shock suspect sepsis
Chief Complaint / Past History
Chief Complaint
Change in mental status
History of Present Illness
History obtained from his at bedside since patient currently unresponsive. He is a 68-year-old male with multiple sclerosis, seizure disorder, chronic pain, bioprosthetic aortic valve replacement, history of baclofen pump complicated by spinal
fluid leak with E. coli and Pseudomonas meningitis status post pump removal at [facility] December 2022 who presented to the hospital yesterday for change in mental status. Per , he was fine the day before, but yesterday he was lethargic and
confused. She took his blood pressure and noted to be low. He was therefore sent to the ER. In the ER patient was obtunded and had to be intubated for airway protection. He was hypothermic and hypotensive requiring Levophed. Lactic acid normal.
White count normal. CT of the abdomen and pelvis unremarkable. Chest x-ray shows interstitial opacity. He was started on vancomycin and Zosyn for presumed septic shock but no blood cultures obtained prior to antibiotics. Per no fevers or
chills at home. No specific complaints at home. No diarrhea. No urinary symptoms. He recently was treated with 7 days of steroid taper for right hand MS flare. Approximately 2 weeks ago his pulled an embedded tick from his scalp. Tick was
slightly engorged. She thinks it was a dog tick rather than a deer tick. Did have a pet dog and a cat. No ill contacts. No recent travel history.
Past History
Additional Past Medical History:
Multiple sclerosis, not on tx
Seizure disorder
Pseudogout
Chronic pain
Baclofen pump SSTI 09/2022 s/p removal 10/2022.
Baclofen pump placement 12/2022 complicated by spinal leak with E. coli+Pseudomonas meningitis s/p pump removal at [facility]
bioprosthetic aortic valve replacement
History of cervicothoracic epidural abscess MSSA in 2010
History of C. difficile
Cholecystectomy
Lumbar laminectomy
Toe amputation
Bilateral THR
Bilateral TKR
Gastric bypass
Allergy History:
CHANDLER Inhibitors Allergy (Verified 08/15/23 14:52)
COUGH
cephalexin monohydrate [From Keflex] Allergy (Verified 08/15/23 14:52)
Rash/tolerated Zosyn
quinapril HCl [From Accupril] Allergy (Verified 08/15/23 14:52)
COUGH--CHANDLER INHIBITORS
Medications Reviewed: Yes
Current Antibiotics:
Vanco
Zosyn
Social History
Tobacco: Former Smoker
Alcohol: None
Drug: None and Marijuana (Medical)
Personal:
Living: With Family
Family History
Family History: Not Pertinent
Review of Systems
Review of Systems
Unable to obtain due to lethargy and on mechanical ventilation.
Vital Signs
Temp Pulse Resp BP Pulse Ox
97.7 F 63 14 115/68 97
11/11/23 07:34 11/11/23 08:45 11/11/23 08:45 11/11/23 08:00 11/11/23 09:00
Physical Exam
Physical Exam
Constitutional: Acutely Ill
Eyes: No Conjunctival Hemorrhage and Sclera Anicteric
Cardiovascular: Regular Rate and S1/S2
Pulmonary: Clear (anteriorly)
Gastrointestinal: Soft, Non Tender, Non Distended and Normal Bowel Sounds
Genito-Urinary: Negative CVA Tenderness
Extremities: Negative Edema
Musculoskeletal: Negative Joint Swelling (bilateral hips and knees) or Joint Effusion (bilateral hips and knees)
Skin: Negative Rash
Lab / Diagnostic Study Results
11/11/23 04:01
11/10/23 22:16
Abs Immat Gran (auto) 0.0 10^3/uL (0-0.05) 11/10/23 22:16
Absolute Neuts (auto) 5.6 10^3/uL (1.4-6.5) 11/10/23 22:16
Absolute Lymphs (auto) 2.0 10^3/uL (1.2-3.4) 11/10/23 22:16
Absolute Monos (auto) 1.0 10^3/uL (0.1-0.6) H 11/10/23 22:16
Absolute Basos (auto) 0.0 10^3/uL (0-0.2) 11/10/23 22:16
Immature Gran % 0.3 % (0-0.5) 11/10/23 22:16
Neutrophils % 62.6 % (42.2-75.2) 11/10/23 22:16
Lymphocytes % 22.6 % (20.5-51.1) 11/10/23 22:16
Monocytes % 11.4 % (1.7-9.3) H 11/10/23 22:16
Eosinophils % 2.8 % (0-6) 11/10/23 22:16
Basophils % 0.3 % (0-2) 11/10/23 22:16
PT 15.4 Sec (11.4-14.6) H 11/11/23 04:01
INR 1.24 11/11/23 04:01
Lactic Acid Cancelled 11/11/23 15:41
Ur Squamous Epith Cells >30 /LPF (Few) 11/10/23 23:36
Microbiology Results
Micro:
11/10/23 23:36 Urine Culture - Pending
Urine
11/11/23 CT a/p: No CT abnormalities identified to explain the patient's symptoms . No evidence of intestinal obstruction, bowel inflammatory process, nephrolithiasis, hydronephrosis, cholecystitis, or abscess formation.
11/11/[address]: No acute intracranial abnormalities appreciated.
11/11/23 CXR: The tip of the endotracheal tube is only 6 mm above the fabiola and could be retracted approximately 2 cm. There is mild interstitial airspace disease and retrocardiac left base which may be atelectasis or interstitial pneumonia
Assessment / Plan
# Shock on 1 pressor
- normal WB, lactic acid
- CT a/p negative
- no blood cx's obtained prior to abx's
- UA contaminated specimen >30sq
- Follow clinically.
# Recent tick exposure 2 weeks ago.
- Start doxycycline 100mg suspension tube bid
# Possible pneumonia
-Currently, intubated for airway protection
- CXR interstitial airspace disease
- Check sputum for culture
-Continue empiric Zosyn pending cx data
- DC vancomycin if MRSA screen negative.
Multiple sclerosis, not on tx
Seizure disorder
Pseudogout
Chronic pain
Baclofen pump SSTI 09/2022 s/p removal 10/2022.
Baclofen pump placement 12/2022 complicated by spinal leak with E. coli+Pseudomonas meningitis, s/p pump removal at [facility]
bioprosthetic aortic valve replacement
History of cervicothoracic epidural abscess MSSA in 2010
History of C. difficile
Cholecystectomy
Lumbar laminectomy
Toe amputation
Bilateral THR
Bilateral TKR
Gastric bypass
Care Review
Plan reviewed with: Physician (Dr. Maribell Mcgregor)
--- NOTE | 2023-11-11 09:16 | PHA.VAN.IN ---
Assessment
- Assessment
Renal Function: Appears similar to baseline (SCR 1.5 vs 0.5-0.7 in 2022)
Concomitant Antimicrobials: piperacillin/tazobactam
Plan
- Plan
Initial / Loading Dose: 1500mg - 11/10 04:20 plus additional 500mg x1 today
Maintenance Regimen: dosing by level
Monitorin11/11 599
Pharmacokinetics Vancomycin I
- -
Patient Age: 68
Patient Sex: Male
Vancomycin Day #: 1
Indication: Other
Requesting Provider: Dr. Horton
Pertinent Antimicrobial Allergies:
cephalexin - rash, tolerated pip/tazo
Height / Weight:
Height 5 ft 7 in
Actual Weight 74.4 kg
Pertinent Past Medical History: MS
- Vital Signs / Lab Results
Temp Pulse Resp BP Pulse Ox
97.7 F 63 14 115/68 97
11/11/23 07:34 11/11/23 08:45 11/11/23 08:45 11/11/23 08:00 11/11/23 09:00
Lab Results - Hematology
11/10/23 11/11/23
22:16 04:01
WBC 8.9 8.2
Lab Results - Chemistry
11/10/23
22:16
BUN 47 H
Creatinine 1.5 H
Estimated Creat Clear 40
Albumin 3.8
11/11/23 11/11/23 11/11/23
03:18 03:41 03:59
Lactic Acid 0.6 L Cancelled Cancelled
11/11/23 11/11/23 11/11/23
04:01 11:41 15:41
Lactic Acid 1.0 Cancelled Cancelled
Lab Results - Urine
11/10/23
23:36
Urine Nitrite (Reflex) Negative
Leukocyte Esterase Rfl Trace A
Urine WBC (Reflex) 6-10
Ur Squamous Epith Cells >30
Urine Bacteria (Reflex) Moderate A
[2023-11-11 09:50] LABS: COVID-19 Antigen Negative (Negative)
[2023-11-11 12:01] LABS: NT-proBNP 180 pg/ml
[2023-11-11 12:18] LABS: B.E. -0.2 mmol/L; HCO3 24.8 mmol/L (21-28); O2 Saturation % 98.4 % (94-98); PCO2 41 mmHg (35-48); PO2 181 mmHg (83-108); pH 7.39 (7.35-7.45)
[2023-11-11] MEDS: OFIRMEV 100 IV (13:15)
--- NOTE | 2023-11-11 13:41 | PTCARENOTE ---
Updated assessment ongoing and as documented. Patient family in and out at bedside. Updated in grand rounds reviewed and reinforced plan of cares. Updates with Hospitalist and brick pointer team. Progressed thru weaning process. Presently weaned
extubated to 2lpm n/c saturation 98% resp rate 16bpm. Continue to follow up with pharmacy related to antibiotics, medication review, await pending labs and plan of med schedule. Will follow along with critical care team. Respiratory team in and out
with any pulmonary assistance monitoring post extubation. Critical care team at bedside.
--- NOTE | 2023-11-11 14:45 | CM ---
M following re: discharge planning.
Discussed in rounds, reviewed pt's chart, met with pt. Pt's family at bedside.
Pt is a 68 year old male, admitted with primary dx of Septic shock . Per Rounds meeting, pt intubated in ED, remains intubated, continue supportive care.
Per family, pt lives with spouse and a daughter in a 2SH, 2 steps to enter, has 4 supportive children, ambulates with a walker and a cane, active with [facility] and per pt, Per family, pt was at [facility], no SNF history.
PCP: Berry Valderrama
Pharmacy: [facility].
D/C plan: uncertain at this time and will depend on pt's progress.
CM will follow with discharge plan updates as hospitalization progresses
--- NOTE | 2023-11-11 15:15 | PTOTSP ---
Dysphagia Evaluation
No signs of oral/pharyngeal dysphagia or aspiration observed during clinical bedside swallowing evaluation.
Patient/family reported occasional signs of aspiration (coughing when taking oral medications whole with water in early AM) prior to admission but denied any recent PNAs. Patient currently with possible PNA.
Patient with risk factors for acute on chronic dysphagia/aspiration (i.e., episode of decreased mentation/responsiveness requiring brief intubation; MS, GERD). Cannot rule out silent aspiration at the bedside. If concerned for this consider video
swallow study. Low suspicion at this time.
Recommend:
1. Regular, Thin Liquids
2. Medications whole in puree (pudding, yogurt; pt dislikes applesauce)
3. Strategies: upright to 90 degrees, small single sips/bites, slow rate
4. Dysphagia tx not warranted at this time.
[2023-11-11] MEDS: VIBRAMYCIN 100 MG PO ×2 (15:40→20:15)
[2023-11-11] MEDS: HEPARIN 5000 UNITS SC ×2 (15:40→23:04)
--- NOTE | 2023-11-11 16:52 | PTCARENOTE ---
Again update with family at bedside. Review events of day and hospitalization. Reinforce and follow up teaching concerns with patient and family. Reinforce importance of cpap compliance. Update and reinforce plan of cares for pm. Medication review
with family. Continue follow up assessment. Patient remains extubated 2lpm n/c. Levophed remains off. Continue with abx as ordered, note vancomycin dc'd. Doxycycline as ordered, follow up medications via [facility] and with pharmacy. Continue hourly
rounds and frequent patient safety checks. Call mendoza teaching with return demo. Daughters at bedside.
--- NOTE | 2023-11-11 18:38 | PTCARENOTE ---
Patient sleeping lightly at this assessment. Watching tv. Family home at this time. Patient updated via phone. Called in to express concerns with patient ability to clear his medications thinks he should see a track surfacing machine operator. Reinforce teaching
from fueler, reinforce improvement from day. Discuss plan of cares, provide emotional support and continue with teaching as needed.
[2023-11-11] MEDS: NSS (PRESERVATIVE FREE) IV (20:10)
[2023-11-11] MEDS: LIORESAL 40 MG PO (20:15)
[2023-11-11] MEDS: LAMICTAL 100 MG PO (20:15)
--- NOTE | 2023-11-11 20:30 | PTCARENOTE ---
on assessment pt drowsy but AAOx4, c/o chronic pain, NSR on monitor, generalized edema, 2L NC, pt agreed to be on BIPAP at night, reg diet, bar in place, wounds noted see flowsheet, call mendoza in reach.
[2023-11-12] VITALS (21 sets, daily range): BP systolic 103–152; BP diastolic 64–97; PULSE 79–84; O2SAT 97; BMI 26.4
--- NOTE | 2023-11-12 | PTCARENOTE ---
pt remains awake and not on BIPAP at this time. pt has been refusing but states is willing to try the BIPAP tonight, call mendoza in reach.
[2023-11-12] MEDS: LIORESAL 30 MG PO ×2 (03:12→08:05)
--- NOTE | 2023-11-12 04:00 | PTCARENOTE ---
pt remains on CPAP, no changes from prior assessment. call mendoza in reach.
[2023-11-12] MEDS: ZOSYN 50 IV (05:14)
[2023-11-12 05:34] LABS: Total Bilirubin 0.7 mg/dl (0.2-1.3)
[2023-11-12 05:35] LABS: ALT (SGPT) 30 U/L (0-50); AST (SGOT) 32 U/L (17-59); Albumin 2.9 g/dl (3.5-5.0); Alkaline Phosphatase 175 U/L (38-126); Blood Urea Nitrogen 27 mg/dl (9-20); Calcium 8.3 mg/dl (8.4-10.2); Carbon Dioxide 28 mmol/L (22-30); Chloride 108 mmol/L (98-107); Estimated Creatinine Clearance 92 ml/min; Glucose 98 mg/dl (70-99); Sodium 138 mmol/L (135-145); Total Protein 5.1 g/dl (6.3-8.2); eGFR > 60.00
--- NOTE | 2023-11-12 07:27 | W.PN.INTV ---
Today's Communication / Plan
Recommendations
Transfer to telemetry
Continue CPAP
Blood cultures pending
Assessment
-
ASSESSMENT: This is a 68 year old male patient with PMH of MS, seizure disorder, AVR, prior CVA, HTN, cervicothoracic epidural abscess (MSSA) July 2010 was brought to the ED accompanied by when she noticed that patient was not responsive and
was hypotensive. He does not use CPAP machine regularly at home. In the ED, ABG showed 7.28 pH and CO2 50, patient was intubated and transferred to ICU.
IMPRESSION:
Acute hypercapnic respiratory failure
CRISTELA
Hypotensive
Conditions GEOLOGICAL ENGINEER
Multiple sclerosis
JOYCE
Previous GI bleeds
Aortic insufficiency
Mitral valve prolapse
Rheumatic fever
Cervicothoracic epidural abscess (MSSA) July 2010
Gout
PLAN:
CT head on 11/10 showed no intracranial abnormalities
Weaned off sedation medication
Restart pain meds after discussion with his palliative care
Continue MS medications
Transfer to telemetry
EKG on 11/09 showed first degree AV block
Prior echocardiogram in 2010 negative
Discontinued levophed yesterday evening
BNP 180 on 11/10
Echocardiogram on 11/10 showed 58% EF, moderate MS, mild RV dilation
Hold home antihypertensive
Extubated successfully on 11/11
Started CPAP tolerated well overnight, examined today at [facility] 94%
CXR on 11/10: mild interstitial airspace disease and retrocardiac left base which may be atelectasis or interstitial pneumonia
ABG on adm: 7.28, 50, 124, 23.5
Repeat ABG 11/10: 7.31, 46, 215, 23.2
Does not use CPAP machine regularly, recommended that patient's bring in home device to the hospital
Sputum culture stain: E.Coli
Continue IV Zosyn, can discontinue doxycycline
CT abdomen on 6/25�negative
Alk phos trended down, normal LFTs�possible acute phase reactant
Speech and swallow consulted
Regular diet started yesterday
CRISTELA
Continue Fisher
Creatinine decreased to 0.7 today (baseline 0.7)
Discontinued LR fluids
Monitor electrolytes, replete as needed
Blood cultures pending
Hemoglobin stable at 11.9
ID consulted-started doxycycline due to tick bite recently
Discontinued vancomycin
Continue IV Zosyn
Possible D/C antibiotics if blood cultures negative, sputum culture and WBC stable
Not likely acute adrenal insufficiency, patient was on low-dose steroid taper that was completed prior to admission
Discontinued IV hydrocortisone that was started on adm
Continue PPI prophylaxis
DVT prophylaxis: Subcutaneous heparin
Subjective Dataa
Subjective Data
Date of Service:
Date of Service: November 12, 2023
Chief Complaint: Order Entry Clerk Follow Up
Subjective:
Patient was examined at bedside today. Had no significant overnight events but c/o of his chronic b/l leg pain.
Review of Systems
General: Fever (neg)
GI: Abdominal Pain (neg) and Nausea (neg)
Objective Data
Data Reviewed
Vital Signs / I&O / Oxygen:
Vital Signs
Temp Pulse Resp BP Pulse Ox
98 F 65 19 103/67 97
11/12/23 04:00 11/12/23 06:15 11/12/23 06:15 11/12/23 06:00 11/12/23 06:15
Intake and Output
11/11/23 11/12/23 11/13/23
06:59 06:59 06:59
Intake Total 701.0 / 813.0 3091.4 / 3091.4
Output Total 470 / 570 2445 / 2445
Balance 231.0 / 243.0 646.4 / 646.4
SaO2 [A/C] 98
SaO2 97
Nasal Cannula flow liters per 2
minute
Physical Exam
General: Fever (neg)
HEENT: Normocephalic
Cardiovascular: S1-S2 and Regular Rhythm
Respiratory: Clear
GI: Soft, Non Distended and Non Tender
Neurology: Awake, Alert and Oriented
Skin: Warm
Labs/Micro/Reports
Lab Data
11/11/23 04:01
11/12/23 04:59
Laboratory Results
11/11/23
12:07
pH 7.39
pCO2 41
pO2 181 H
HCO3 24.8
O2 Delivery Level
Microbiology
11/11/23 11:22 Endotracheal Gram Stain - Preliminary
11/11/23 11:50 Nose Nasal Screen MRSA (PCR) - Final
MRSA not detected - performed by PCR methodology.
11/11/23 09:25 Urine Legionella Urinary Antigen - Final
Negative for Legionella pneumophila Serogroup 1 antigen.
A negative result does not rule out the possiblity of
Legionella infection due to other serogroups or species of
Legionella. Clinical correlation is recommended.
11/11/23 09:25 Urine Streptococcus pneumoniae Antigen (M - Final
Negative for Streptococcus pneumoniae antigen.
A negative result does not exclude infection with
Streptococcus pneumoniae. Clinical correlation is
recommended.
11/11/23 09:25 Nasal Swab Influenza Types A & B (TEE) - Final
Negative for Influenza A & B, NAAT
Negative results must be combined with clinical observations
and patient history.
Nucleic Acid Amplification test (NAAT)performed on the
[employer] platform.
[2023-11-12] MEDS: LAMICTAL 100 MG PO ×2 (08:03→20:00)
[2023-11-12] MEDS: PROTONIX 40 MG PO (08:03)
[2023-11-12] MEDS: VIBRAMYCIN 100 MG PO ×2 (08:03→20:00)
[2023-11-12] MEDS: PROVIGIL 200 MG PO (08:03)
[2023-11-12] MEDS: MIRALAX 17 GRAMS TUBE (08:03)
[2023-11-12] MEDS: HEPARIN 5000 UNITS SC (08:03)
[2023-11-12] MEDS: PLAVIX 75 MG PO (08:03)
[2023-11-12 08:32] LABS: % Basophils 0.2 % (0-2); % Eosinophils 1.9 % (0-6); % Immature Granulocytes 0.2 % (0-0.5); % Lymphocytes 26.5 % (20.5-51.1); % Monocytes 8.8 % (1.7-9.3); % Neutrophils 62.4 % (42.2-75.2); Absolute Eosinophils 0.2 10^3/uL (0-0.7); Absolute Lymphocytes 2.1 10^3/uL (1.2-3.4); Absolute Monocytes 0.7 10^3/uL (0.1-0.6); Hematocrit 35.5 % (39.0-52.0); Hemoglobin 11.2 g/dL (13.0-18.0); Mean Corp Hgb Conc. 31.5 g/dL (33.0-37.0); Mean Corpuscular Hgb 28.4 pg (27.0-31.0); Mean Corpuscular Volume 90.1 fL (80.0-94.0); Mean Platelet Volume 10.1 fL (7.4-10.4); Nucleated Red Blood Cells % 0 % (-); Platelet Count 117 10^3/uL (130-400); Red Blood Cell Count 3.94 10^6/uL (4.70-6.10); Red Cell Dist. Width 16.9 % (11.5-14.5); White Blood Cell Count 8.1 10^3/uL (4.8-10.8)
[2023-11-12] MEDS: NSS (PRESERVATIVE FREE) IV (09:03)
[2023-11-12] MEDS: LR IV (10:27)
--- NOTE | 2023-11-12 11:19 | PTCARENOTE ---
Phillip d/c'marcelle. Pt OOB in chair. Unsteady on feet. All other assessments unchanged.
--- NOTE | 2023-11-12 11:25 | W.PN.ID1 ---
Date of Service
Date of Service: November 12, 2023
Today's Communication
Transition Zosyn to Augmentin 875mg po bid through 11/13.
Continue doxycycline 100mg po bid through 11/20/23
Assessment / Plan
# Shock - quickly resolved
- normal WB, lactic acid
- CT a/p negative
- no blood cx's obtained prior to abx's
- UA contaminated specimen >30sq
- Blood cx's x 2 (after abx) -neg to date
# Recent tick exposure 2 weeks ago.
- Continue doxycycline 100mg po bid through 11/20/23
# Possible pneumonia
- extubated
- CXR interstitial airspace disease
- Sputum E. coli
- Transition Zosyn to Augmentin 875mg po bid through 11/13
Multiple sclerosis, not on tx
Seizure disorder
Pseudogout
Chronic pain
Baclofen pump SSTI 09/2022 s/p removal 10/2022.
Baclofen pump placement 12/2022 complicated by spinal leak with E. coli+Pseudomonas meningitis, s/p pump removal at [facility]
bioprosthetic aortic valve replacement
History of cervicothoracic epidural abscess MSSA in 2010
History of C. difficile
Cholecystectomy
Lumbar laminectomy
Toe amputation
Bilateral THR
Bilateral TKR
Gastric bypass
Chief Complaint
-: Other (Hypotension)
Subjective / Review of Systems
Pt now sitting up in chair. Awake and alert. He feels well.
Denies cough/diarrhea/urinary sxs.
c/o leg spasm from MS.
Vital Signs / Physical Exam
Vital Signs
Vital Signs
Temp Pulse Resp BP Pulse Ox
97.7 F 76 21 135/96 98
11/12/23 10:45 11/12/23 11:15 11/12/23 11:15 11/12/23 10:00 11/12/23 10:30
Physical Exam
Constitutional: No Acute Distress and Comfortable
Eyes: No Conjunctival Hemorrhage and Sclera Anicteric
Cardiovascular: Regular Rate and S1/S2
Pulmonary: Clear
Gastrointestinal: Soft, Non Tender, Non Distended and Normal Bowel Sounds
Genito-Urinary: Negative CVA Tenderness
Extremities: Negative Edema
Neurological: AO x 3
Objective Data
Lab Data
Lab Results
11/12/23 08:17
11/12/23 04:59
PT 15.4 Sec (11.4-14.6) H 11/11/23 04:01
INR 1.24 11/11/23 04:01
APTT 35.5 Sec (23.4-35.0) H 11/11/23 04:01
Estimated Creat Clear 92 ml/min 11/12/23 04:59
Lactic Acid Cancelled 11/11/23 15:41
Total Bilirubin 0.7 mg/dl (0.2-1.3) 11/12/23 04:59
AST 32 U/L (17-59) 11/12/23 04:59
ALT 30 U/L (0-50) 11/12/23 04:59
Alkaline Phosphatase 175 U/L (38-126) H 11/12/23 04:59
Most recent labs reviewed.
Micro Results:
11/11/23 09:47 Blood Culture - Preliminary
Blood/Venous No Growth in 24 hours- Final report to follow
11/11/23 11:22 Respiratory Culture - Preliminary
Endotracheal Escherichia coli
Gram Stain - Preliminary
11/11/23 09:25 Blood Culture - Preliminary
Blood/Venous No Growth in 24 hours- Final report to follow
11/10/23 23:36 Urine Culture - Final
Urine NO GROWTH
11/11/23 11:50 Nasal Screen MRSA (PCR) - Final
Nose MRSA not detected - performed by PCR methodology.
11/11/23 09:25 Legionella Urinary Antigen - Final
Urine Negative for Legionella pneumophila Serogroup 1 antigen.
A negative result does not rule out the possiblity of
Legionella infection due to other serogroups or species of
Legionella. Clinical correlation is recommended.
Streptococcus pneumoniae Antigen (M - Final
Negative for Streptococcus pneumoniae antigen.
A negative result does not exclude infection with
Streptococcus pneumoniae. Clinical correlation is
recommended.
11/11/23 09:25 Influenza Types A & B (TEE) - Final
Nasal Swab Negative for Influenza A & B, NAAT
Negative results must be combined with clinical observations
and patient history.
Nucleic Acid Amplification test (NAAT)performed on the
[employer] platform.
11/11/23 CT a/p: No CT abnormalities identified to explain the patient's symptoms . No evidence of intestinal obstruction, bowel inflammatory process, nephrolithiasis, hydronephrosis, cholecystitis, or abscess formation.
11/11/[address]: No acute intracranial abnormalities appreciated.
11/11/23 CXR: The tip of the endotracheal tube is only 6 mm above the fabiola and could be retracted approximately 2 cm. There is mild interstitial airspace disease and retrocardiac left base which may be atelectasis or interstitial pneumonia
[2023-11-12] MEDS: PROVIGIL 100 MG PO (12:50)
[2023-11-12] MEDS: ROXICODONE 5 MG PO (12:51)
[2023-11-12] MEDS: VITAMIN B-12 1000 MCG PO (12:51)
--- NOTE | 2023-11-12 14:14 | W.PN.HOSP.TC ---
Today's Communication/Plan
-
transfer tele
see note
Assessment / Plan
Assessment / Plan
1. Shock - septic vs other - resolved
Ecoli pneumonia
-able to be weaned off of pressors
-Chest x-ray questioning mild interstitial pneumonia. UA showing moderate bacteriuria.
-CT abdomen pelvis did not show any acute abnormality.
-Resp culture growing E coli, antibiotic changed to Augmentin based on susceptibility
-ID help appreciated
2. VDRF for airway protection
Acute Hypercapnic respiratory failure
-Extubated yesterday
-As needed oxygen through nasal cannula
-Minimal hypercapnia, pulm recommended CPAP use at night.
-Pulmonology recommended outpatient sleep study with [facility].
3. CRISTELA -resolved
-baseline creatinine of 0.5. Currently creatinine elevated to 1.5. Presumed prerenal.
-Fisher catheter in place.
-CT abdomen pelvis did not show any renal issues. UA neg for proteinuria
4. Acte TME - resolved
-presumed from sepsis versus polypharmacy related. Being treated for underlying issues.
-Patient takes MS Contin 50 mg 3 times daily. Oxycodone 5 mg every 4 hours as needed and valium 5mg q6h prn(needs all doses most of the time),
4. Relapsing remitting multiple sclerosis
-patient has been diagnosed for 20 years and was recently given 7 days of steroid course for suspected MS flare up -Main symptom was bilateral hand numbness tingling.
-Patient does have chronic cervical spinal issue and some amount of chronic neuropathic changes in bilateral upper extremity although symptoms where out of usual pattern rapidly worsening enthesis was given course of steroid. Follows up with
pina.
5. Chronic pain narcotic dependence
-show patient on complex regimen of pain medication. Unfortunately patient likely have significant pain issue as evident from attempted baclofen pump placement x3 in past.
- Remains at high risk for confusion/respiratory arrest from requirement of high doses of oral pain medication regimen
-Starting at lower dose of MS Contin 15 mg twice daily with minimal decrease in Valium dose to 4 mg every 6 hours for spasm
6. Tick bite
-Per spouse had a tick taken off of scalp,
-ID have recommended a short course of doxycycline
JOYCE
GI bleed
History of bovine aortic valve placement
History of lumbar laminectomy times
History of amputation
Bilateral hip replacement
Bilateral knee replacement
History of epidural abscess requiring drainage in
History of baclofen pump placement explantation x 3 due to meningitis
DVT PPX - heparin subq
Full code
Discussed with Pulmonology
Remains complex and high risk of pulmonary complications/arrest
Anticipated Discharge: 24 - 48 hours
Subjective/Interval History
-
Date of Service: November 12, 2023
Patient awake and communicative
Complains of neck pain and spasm
no other issues reported
Objective Data
-
Labs:
Laboratory Results
11/12/23 11/12/23
04:59 08:17
WBC 8.1
Hgb 11.2 L
Hct 35.5 L
Plt Count 117 L D
Sodium 138
Potassium 4.0
Chloride 108 H
Carbon Dioxide 28
BUN 27 H
Creatinine 0.7
Glucose 98
Calcium 8.3 L
Total Bilirubin 0.7
AST 32
ALT 30
Alkaline Phosphatase 175 H
Vital Signs:
Vital Signs
Temp Pulse Resp BP Pulse Ox
97.7 F 76 21 135/96 98
11/12/23 10:45 11/12/23 11:15 11/12/23 11:15 11/12/23 10:00 11/12/23 10:30
I&O
11/11/23 11/12/23 11/13/23
06:59 06:59 06:59
Intake Total 701.0 / 813.0 3091.4 / 3191.4 590 / 590
Output Total 470 / 570 2445 / 2445 565 / 565
Balance 231.0 / 243.0 646.4 / 746.4
Review of Systems
-
Respiratory: Reports No Symptoms
Cardiac: Reports No Symptoms
Abdomen/GI: Reports No Symptoms
Physical Exam
-
General: No Apparent Distress and Comfortable
HEENT: Moist Mucous Membranes and Oxygen
Respiratory: Clear to Auscultation; Negative Wheezes or Rales
Cardiac: Regular Rhythm and S1/S2
GI: Soft, Nontender and Nondistended
Skin: Warm and Dry
Neuro: Awake, Alert and Oriented
Psych: Calm
[2023-11-12] MEDS: LOVENOX 40 MG SC (17:40)
[2023-11-12] MEDS: VALIUM 4 MG PO (17:44)
[2023-11-12] MEDS: MS CONTIN (EXTENDED RELEASE) 15 MG PO (20:00)
[2023-11-12] MEDS: LIORESAL 40 MG PO (20:00)
[2023-11-12] MEDS: AUGMENTIN 875 MG/125 MG 1 TABLET PO (20:00)
[2023-11-13] VITALS (13 sets, daily range): BP systolic 126–160; BP diastolic 74–103; PULSE 81–84; O2SAT 98; BMI 26.2
[2023-11-13] MEDS: VALIUM 4 MG PO ×3 (03:26→20:26)
[2023-11-13] MEDS: ROXICODONE 5 MG PO ×3 (03:26→20:26)
[2023-11-13] MEDS: LIORESAL 30 MG PO ×2 (03:26→08:03)
[2023-11-13 03:42] LABS: Hematocrit 33.5 % (39.0-52.0); Hemoglobin 11.3 g/dL (13.0-18.0); Mean Corp Hgb Conc. 33.7 g/dL (33.0-37.0); Mean Corpuscular Hgb 29.3 pg (27.0-31.0); Mean Corpuscular Volume 86.8 fL (80.0-94.0); Mean Platelet Volume 10.2 fL (7.4-10.4); Platelet Count 128 10^3/uL (130-400); Red Blood Cell Count 3.86 10^6/uL (4.70-6.10); Red Cell Dist. Width 16.9 % (11.5-14.5); White Blood Cell Count 7.3 10^3/uL (4.8-10.8)
[2023-11-13 04:02] LABS: Blood Urea Nitrogen 22 mg/dl (9-20); Calcium 8.7 mg/dl (8.4-10.2); Carbon Dioxide 27 mmol/L (22-30); Chloride 108 mmol/L (98-107); Estimated Creatinine Clearance 107 ml/min; Glucose 104 mg/dl (70-99); Sodium 139 mmol/L (135-145); eGFR > 60.00
[2023-11-13] MEDS: LAMICTAL 100 MG PO ×2 (07:56→20:25)
[2023-11-13] MEDS: AUGMENTIN 875 MG/125 MG 1 TABLET PO ×2 (07:58→20:25)
[2023-11-13] MEDS: PROVIGIL 200 MG PO (07:58)
[2023-11-13] MEDS: MS CONTIN (EXTENDED RELEASE) 15 MG PO ×2 (07:58→20:25)
[2023-11-13] MEDS: VIBRAMYCIN 100 MG PO ×2 (07:58→20:25)
[2023-11-13] MEDS: PROTONIX 40 MG PO (07:58)
[2023-11-13] MEDS: PLAVIX 75 MG PO (07:58)
--- NOTE | 2023-11-13 08:25 | PTCARENOTE ---
Rec'd pt at 0800 awake alert and oriented sitting oob in the chair. States he feels ok- just is anxious to start walking as he is concerned that with his MS that being in bed has made his legs weaker. States he normally uses a cane but has needed a
walker currently. Speech is clear. Denies headache or dizzness. Admits to 4/10 chronic discomfort mostly he says in his legs in the form of achiness and spasms. States that the Baclofen pump is what worked best for him in the past and is deciding in
the future whether to have it put back in. (previous one became infected). ABDULLAHI- arms and legs are weak. Skin is pink wm and dry. Pt with area on L upper arm that he states was a blister that opened up- dressing changed. [place] wound bed. No sting
barrier wipe around the wound and silicone border foam placed over. Respirs are unlabored on RA with sats of 97%. Lungs are clear. Denies SOB. Monitor SR with border [id number]. + pulses. +2 R lower arm edema- pt admits makes the arm feel tight.
BP cuff removed from upper arm. Arm is warm and pink/lee. Denies chest pain. ABd is soft with + BS. Denies nausea. Currently eating breakfast. Voided earlier. Capped ints as documented in R and L arm. Sites wnl. Pt able to reposition himself. Call
kelly in reach. Plan of care reviewed with pt.
--- NOTE | 2023-11-13 09:23 | W.PN.ID1 ---
Date of Service
Date of Service: November 13, 2023
Today's Communication
Continue Augmentin 875mg po bid through 11/13.
Continue doxycycline 100mg po bid through 11/20/23
Assessment / Plan
# Recent tick exposure 2 weeks ago.
- Continue doxycycline 100mg po bid through 11/20/23
# Possible pneumonia
- extubated
- CXR interstitial airspace disease
- Sputum E. coli
- Continue Augmentin 875mg po bid through 11/13
# RUE acute edema
-Hospitalist aware
# Shock - quickly resolved
- normal WB, lactic acid
- CT a/p negative
- no blood cx's obtained prior to abx's
- UA contaminated specimen >30sq
- Blood cx's x 2 (after abx) -neg to date
Multiple sclerosis, not on tx
Seizure disorder
Pseudogout
Chronic pain
Baclofen pump SSTI 09/2022 s/p removal 10/2022.
Baclofen pump placement 12/2022 complicated by spinal leak with E. coli+Pseudomonas meningitis, s/p pump removal at [facility]
bioprosthetic aortic valve replacement
History of cervicothoracic epidural abscess MSSA in 2010
History of C. difficile
Cholecystectomy
Lumbar laminectomy
Toe amputation
Bilateral THR
Bilateral TKR
Gastric bypass
Chief Complaint
-: Other (Hypotension)
Subjective / Review of Systems
c/o RUE edema
Vital Signs / Physical Exam
Vital Signs
Vital Signs
Temp Pulse Resp BP Pulse Ox
98.0 F 80 14 147/91 97
11/13/23 07:35 11/13/23 08:15 11/13/23 08:15 11/13/23 08:10 11/13/23 08:15
Physical Exam
Constitutional: No Acute Distress and Comfortable
Cardiovascular: Regular Rate
Pulmonary: Clear
Gastrointestinal: Soft, Non Tender and Non Distended
Extremities: Edema (RUE 2+ edema hand to upper arm, 2 peripheral IV sites unremarkable)
Neurological: AO x 3
Objective Data
Lab Data
Lab Results
11/13/23 03:33
11/13/23 03:33
PT 15.4 Sec (11.4-14.6) H 11/11/23 04:01
INR 1.24 11/11/23 04:01
APTT 35.5 Sec (23.4-35.0) H 11/11/23 04:01
Estimated Creat Clear 107 ml/min 11/13/23 03:33
Lactic Acid Cancelled 11/11/23 15:41
Total Bilirubin 0.7 mg/dl (0.2-1.3) 11/12/23 04:59
AST 32 U/L (17-59) 11/12/23 04:59
ALT 30 U/L (0-50) 11/12/23 04:59
Alkaline Phosphatase 175 U/L (38-126) H 11/12/23 04:59
Most recent labs reviewed.
Micro Results:
11/11/23 11:22 Respiratory Culture - Preliminary
Endotracheal Escherichia coli
Gram Stain - Preliminary
11/11/23 09:47 Blood Culture - Preliminary
Blood/Venous No Growth in 24 hours- Final report to follow
11/11/23 09:25 Blood Culture - Preliminary
Blood/Venous No Growth in 24 hours- Final report to follow
11/10/23 23:36 Urine Culture - Final
Urine NO GROWTH
11/11/23 11:50 Nasal Screen MRSA (PCR) - Final
Nose MRSA not detected - performed by PCR methodology.
11/11/23 09:25 Legionella Urinary Antigen - Final
Urine Negative for Legionella pneumophila Serogroup 1 antigen.
A negative result does not rule out the possiblity of
Legionella infection due to other serogroups or species of
Legionella. Clinical correlation is recommended.
Streptococcus pneumoniae Antigen (M - Final
Negative for Streptococcus pneumoniae antigen.
A negative result does not exclude infection with
Streptococcus pneumoniae. Clinical correlation is
recommended.
11/11/23 09:25 Influenza Types A & B (TEE) - Final
Nasal Swab Negative for Influenza A & B, NAAT
Negative results must be combined with clinical observations
and patient history.
Nucleic Acid Amplification test (NAAT)performed on the
Owned it platform.
11/11/23 CT a/p: No CT abnormalities identified to explain the patient's symptoms . No evidence of intestinal obstruction, bowel inflammatory process, nephrolithiasis, hydronephrosis, cholecystitis, or abscess formation.
11/11/[address]: No acute intracranial abnormalities appreciated.
11/11/23 CXR: The tip of the endotracheal tube is only 6 mm above the fabiola and could be retracted approximately 2 cm. There is mild interstitial airspace disease and retrocardiac left base which may be atelectasis or interstitial pneumonia
Care Review
Plan reviewed with: Physician (Dr. Joanna Mcgregor)
--- NOTE | 2023-11-13 10:25 | PTCARENOTE ---
Pt with overall good appetite for breakfast. Has remained sitting oob in the chair. Worked with PT/OT and then used the bathroom to void and for a brown BM. Stood at the sink to do his oral care. Complete CHG bath given. Pt used the walker to
ambulate and was overall steady with the use of the walker although did tire and briefly wanted to sit down before using the bathroom. Pt states his legs are chronically numb. After all of the activity pt c/o increased LE discomfort and spasms-
medicated currently at pt request with Valium 4 mg po for spasms and Roxicodone 5 mg po for 5/10 discomfort. Call mendoza in reach.
--- NOTE | 2023-11-13 10:46 | CM ---
CM following re: discharge planning.
Reviewed pt's chart, met with pt.
Pt reports he is doing much better.
PT and OT evaluations noted - home PT/OT recommended. Pt is aware, expressed his agreement and he stated he had [facility] in the past and he is requested to have [facility] upon the discharge. Pt stated his spouse will transport him
home at discharge.
A referral to [facility] made.
IMM reviewed, placed on chart, pt has a copy.
Please fax discharge instructions to [facility] at [phone]
D/C plan: home with [facility] and family support. Spouse to transport at discharge.
CM will follow with discharge plan updates as needed.
--- NOTE | 2023-11-13 12:32 | PTCARENOTE ---
Good appetite for lunch. Remains resting oob. States the Valium and the Roxicodone helped the leg discomfort. Rates it as a 3/10. No other changes iin assessment
[2023-11-13] MEDS: VITAMIN B-12 1000 MCG PO (12:34)
[2023-11-13] MEDS: PROVIGIL 100 MG PO (12:34)
--- NOTE | 2023-11-13 12:55 | W.PN.HOSP.TC ---
Today's Communication/Plan
-
resume BP meds
PT as tolerated
for discharge tomorrow
Assessment / Plan
Assessment / Plan
1. Shock - septic vs other - resolved
Ecoli pneumonia
-able to be weaned off of pressors
-Chest x-ray questioning mild interstitial pneumonia. UA showing moderate bacteriuria.
-CT abdomen pelvis did not show any acute abnormality.
-Resp culture growing E coli, antibiotic changed to Augmentin based on susceptibility
-ID help appreciated
2. VDRF for airway protection
Acute Hypercapnic respiratory failure
-Extubated yesterday
-As needed oxygen through nasal cannula
-Minimal hypercapnia, pulm recommended CPAP use at night.
-Pulmonology recommended outpatient sleep study with [facility].
3. CRISTELA -resolved
-baseline creatinine of 0.5. Currently creatinine elevated to 1.5. Presumed prerenal.
-Fisher catheter in place.
-CT abdomen pelvis did not show any renal issues. UA neg for proteinuria
4. Acte TME - resolved
-presumed from sepsis versus polypharmacy related. Being treated for underlying issues.
-Patient takes MS Contin 50 mg 3 times daily. Oxycodone 5 mg every 4 hours as needed and valium 5mg q6h prn(needs all doses most of the time),
4. Relapsing remitting multiple sclerosis
-patient has been diagnosed for 20 years and was recently given 7 days of steroid course for suspected MS flare up -Main symptom was bilateral hand numbness tingling.
-Patient does have chronic cervical spinal issue and some amount of chronic neuropathic changes in bilateral upper extremity although symptoms where out of usual pattern rapidly worsening enthesis was given course of steroid. Follows up with
qi.
5. Chronic pain narcotic dependence
-show patient on complex regimen of pain medication. Unfortunately patient likely have significant pain issue as evident from attempted baclofen pump placement x3 in past.
- Remains at high risk for confusion/respiratory arrest from requirement of high doses of oral pain medication regimen
-Starting at lower dose of MS Contin 15 mg twice daily with minimal decrease in Valium dose to 4 mg every 6 hours for spasm
6. Tick bite
-Per spouse had a tick taken off of scalp,
-ID have recommended a short course of doxycycline
7. Essential HTN
-resume home meds of losartan/coreg
JOYCE
GI bleed
History of bovine aortic valve placement
History of lumbar laminectomy times
History of amputation
Bilateral hip replacement
Bilateral knee replacement
History of epidural abscess requiring drainage in
History of baclofen pump placement explantation x 3 due to meningitis
DVT PPX - heparin subq
Full code
Discussed with Spouse
Anticipated Discharge: Within 24 hours
Subjective/Interval History
-
Date of Service: November 13, 2023
Sitting comfortably in chair
Pain manageable with current regimen
No reported other issues overnight
Objective Data
-
Labs:
Laboratory Results
11/13/23
03:33
WBC 7.3
Hgb 11.3 L
Hct 33.5 L
Plt Count 128 L
Sodium 139
Potassium 4.0
Chloride 108 H
Carbon Dioxide 27
BUN 22 H
Creatinine 0.6 L
Glucose 104 H
Calcium 8.7
Vital Signs:
Vital Signs
Temp Pulse Resp BP Pulse Ox
98.0 F 77 12 142/92 99
11/13/23 07:35 11/13/23 11:41 11/13/23 09:00 11/13/23 11:41 11/13/23 11:45
I&O
11/12/23 11/13/23 11/14/23
06:59 06:59 06:59
Intake Total 3091.4 / 3191.4 830 / 830 500 / 500
Output Total 2445 / 2445 1015 / 1015
Balance 646.4 / 746.4 -185 / -185 500 / 500
Review of Systems
-
Respiratory: Reports No Symptoms
Cardiac: Reports No Symptoms
Abdomen/GI: Reports No Symptoms
Physical Exam
-
General: No Apparent Distress and Comfortable
HEENT: Moist Mucous Membranes and Oxygen
Respiratory: Clear to Auscultation; Negative Wheezes or Rales
Cardiac: Regular Rhythm and S1/S2
GI: Soft, Nontender and Nondistended
Skin: Warm and Dry
Neuro: Awake, Alert and Oriented
Psych: Calm
--- NOTE | 2023-11-13 13:20 | PTCARENOTE ---
Ambulated 1 loop around the ICU with a walker. Tolerated well. Plan is to restart BP meds and possible DC 11/13. Pt aware. No other changes
--- NOTE | 2023-11-13 14:01 | PTCARENOTE ---
Pt with brief run (14 beats ) of a PAT appearing rhythm. Asymptomatic. Monitor SR with isolated PVC's. No other changes in assessment
[2023-11-13] MEDS: COZAAR 50 MG PO (14:14)
[2023-11-13] MEDS: FLUSH (NSS) 1 FLUSH IV ×2 (14:14→14:15)
--- NOTE | 2023-11-13 15:13 | PTCARENOTE ---
Report called to [address] [place] [address]. Will transfer via wheelchair. No other changes
--- NOTE | 2023-11-13 15:38 | PTCARENOTE ---
US of the R upper arm being done. While there is still swelling- overall it is less so since BP cuff moved to the L arm. in to see pt
[2023-11-13] MEDS: LOVENOX 40 MG SC (17:42)
[2023-11-13] MEDS: LIORESAL 40 MG PO (20:25)
[2023-11-13] MEDS: COREG 3.125 MG PO (20:27)
[2023-11-14 00:25] VITALS: PULSE 83
[2023-11-14] MEDS: LIORESAL 30 MG PO ×2 (03:16→09:00)
[2023-11-14 03:25] VITALS: BP 156/82
[2023-11-14 06:00] VITALS: BMI 26.5
[2023-11-14 06:58] LABS: Hematocrit 34.6 % (39.0-52.0); Hemoglobin 11.3 g/dL (13.0-18.0); Mean Corp Hgb Conc. 32.7 g/dL (33.0-37.0); Mean Corpuscular Hgb 28.7 pg (27.0-31.0); Mean Corpuscular Volume 87.8 fL (80.0-94.0); Mean Platelet Volume 11.4 fL (7.4-10.4); Platelet Count 130 10^3/uL (130-400); Red Blood Cell Count 3.94 10^6/uL (4.70-6.10); Red Cell Dist. Width 16.7 % (11.5-14.5)
[2023-11-14 07:20] LABS: Blood Urea Nitrogen 20 mg/dl (9-20); Calcium 8.7 mg/dl (8.4-10.2); Carbon Dioxide 28 mmol/L (22-30); Chloride 106 mmol/L (98-107); Estimated Creatinine Clearance 107 ml/min; Glucose 92 mg/dl (70-99); Potassium 4.1 mmol/L (3.5-5.1); Sodium 137 mmol/L (135-145); eGFR > 60.00
[2023-11-14 07:35] VITALS: BP 159/104
[2023-11-14] MEDS: COREG 3.125 MG PO (08:55)
[2023-11-14] MEDS: MS CONTIN (EXTENDED RELEASE) 15 MG PO (08:56)
[2023-11-14] MEDS: PLAVIX 75 MG PO (08:56)
[2023-11-14] MEDS: LAMICTAL 100 MG PO (08:56)
[2023-11-14] MEDS: PROTONIX 40 MG PO (08:56)
[2023-11-14] MEDS: VIBRAMYCIN 100 MG PO (08:56)
[2023-11-14] MEDS: COZAAR 50 MG PO (08:56)
[2023-11-14] MEDS: AUGMENTIN 875 MG/125 MG 1 TABLET PO (08:56)
[2023-11-14] MEDS: VALIUM 4 MG PO ×2 (08:56→16:03)
[2023-11-14] MEDS: PROVIGIL 200 MG PO (08:56)
[2023-11-14] MEDS: ROXICODONE 5 MG PO ×2 (08:57→16:03)
--- NOTE | 2023-11-14 10:03 | W.PN.HOSP.TC ---
Today's Communication/Plan
-
d/c home with HH
f/u with PCP and palliative care physician next week
Assessment / Plan
Assessment / Plan
1. Shock - septic vs other - resolved
Ecoli pneumonia
-able to be weaned off of pressors
-Chest x-ray questioning mild interstitial pneumonia. UA showing moderate bacteriuria.
-CT abdomen pelvis did not show any acute abnormality.
-Resp culture growing E coli, antibiotic changed to Augmentin based on susceptibility
-ID help appreciated
2. VDRF for airway protection
Acute Hypercapnic respiratory failure
-Extubated yesterday
-As needed oxygen through nasal cannula
-Minimal hypercapnia, pulm recommended CPAP use at night.
-Pulmonology recommended outpatient sleep study with [facility].
3. CRISTELA -resolved
-baseline creatinine of 0.5. Currently creatinine elevated to 1.5. Presumed prerenal.
-Fisher catheter in place.
-CT abdomen pelvis did not show any renal issues. UA neg for proteinuria
4. Acte TME - resolved
-presumed from sepsis versus polypharmacy related. Being treated for underlying issues.
-Patient takes MS Contin 50 mg 3 times daily. Oxycodone 5 mg every 4 hours as needed and valium 5mg q6h prn(needs all doses most of the time),
4. Relapsing remitting multiple sclerosis
-patient has been diagnosed for 20 years and was recently given 7 days of steroid course for suspected MS flare up -Main symptom was bilateral hand numbness tingling.
-Patient does have chronic cervical spinal issue and some amount of chronic neuropathic changes in bilateral upper extremity although symptoms where out of usual pattern rapidly worsening enthesis was given course of steroid. Follows up with
pina.
5. Chronic pain narcotic dependence
-show patient on complex regimen of pain medication. Unfortunately patient likely have significant pain issue as evident from attempted baclofen pump placement x3 in past.
- emains at high risk for confusion/respiratory arrest from requirement of high doses of oral pain medication regimen
-Starting at lower dose of MS Contin 15 mg twice daily with minimal decrease in Valium dose to 4 mg every 6 hours for spasm
6. Tick bite
-Per spouse had a tick taken off of scalp,
-ID have recommended a short course of doxycycline
7. Essential HTN
-resume home meds of losartan/coreg
8. Superficial venous thrombosis of RUE
-Venous Doppler showing small clot in cephalic vein at anti-cubital arera
-arm elevation to help swelling. no massaging of the area/repeat IV access-labs if needed
-already on pain medications.
JOYCE
GI bleed
History of bovine aortic valve placement
History of lumbar laminectomy times
History of amputation
Bilateral hip replacement
Bilateral knee replacement
History of epidural abscess requiring drainage in
History of baclofen pump placement explantation x 3 due to meningitis
DVT PPX - heparin subq
Full code
Discussed with Spouse 11/12
More than 30 minutes spent in discharge including
Final examination of the patient
Summarizing hospital stay
Instructions for continuing care to all relevant caregivers
Preparation of discharge records, prescriptions, and referral forms
Total time spent (in minutes): 38 mins
Anticipated Discharge: Today
Subjective/Interval History
-
Date of Service: November 14, 2023
resting comfortably in bed
some pain/spasm ongoing
no acute issues reported
Objective Data
-
Labs:
Laboratory Results
11/14/23
06:23
WBC 6.0
Hgb 11.3 L
Hct 34.6 L
Plt Count 130
Sodium 137
Potassium 4.1
Chloride 106
Carbon Dioxide 28
BUN 20
Creatinine 0.6 L
Glucose 92
Calcium 8.7
Vital Signs:
Vital Signs
Temp Pulse Resp BP Pulse Ox
98.6 F 70 18 159/104 97
11/14/23 07:35 11/14/23 08:56 11/14/23 07:35 11/14/23 08:56 11/14/23 07:35
I&O
11/13/23 11/14/23 11/15/23
06:59 06:59 06:59
Intake Total 830 / 830 1340 / 1340
Output Total 1015 / 1015 600 / 600
Balance -185 / -185 740 / 740
Review of Systems
-
Respiratory: Reports No Symptoms
Cardiac: Reports No Symptoms
Abdomen/GI: Reports No Symptoms
Physical Exam
-
General: No Apparent Distress and Comfortable
HEENT: Moist Mucous Membranes and Oxygen
Respiratory: Clear to Auscultation; Negative Wheezes or Rales
Cardiac: Regular Rhythm and S1/S2
GI: Soft, Nontender and Nondistended
Musculoskeletal: Edema, Right Upper Extrem
Skin: Warm and Dry
Neuro: Awake, Alert and Oriented
Psych: Calm
--- NOTE | 2023-11-14 10:32 | CM ---
Reviewed the chart notes. Patient is for discharge to home today with [facility]. Referral was previously sent and accepted for start of service Friday. Family will provide transportation. CM continues to be available to patient/family and is
monitoring medical plan for needs at discharge.
Plan: Discharge to home with [facility] (fax: [phone])
[2023-11-14 11:15] VITALS: BP 120/79
[2023-11-14] MEDS: ORETIC 25 MG PO (11:26)
[2023-11-14] MEDS: VITAMIN B-12 1000 MCG PO (11:26)
[2023-11-14] MEDS: PROVIGIL 100 MG PO (11:26)
[2023-11-14 15:35] VITALS: BP 126/78
== END 2023-11-14 17:46 | disposition home health service (06) | DRG 871 ==
LOC: 2 NORTH 02:14
PROVIDERS: Nurse Practitioner Primary Care; Student in an Organized Health Care Education/Training Program; ADMITTING PHYSICIAN Internal Medicine; ATTENDING PHYSICIAN Hospitalist; CONSULT PHYSICIAN Internal Medicine Infectious Disease; EMERGENCY PHYSICIAN Emergency Medicine; FAMILY PHYSICIAN Family Medicine; OTHER PHYSICIAN Internal Medicine
PROC: 5A1935Z Respiratory Ventilation, Less than 24 Consecutive Hours (ICD-10-PCS; 2023-11-11)
PROC: 0BH17EZ Insertion of Endotracheal Airway into Trachea, Via Natural or Artificial Opening (ICD-10-PCS; 2023-11-11)
DX: A41.9 Sepsis, unspecified organism (principal); G92.8 Other toxic encephalopathy; J96.02 Acute respiratory failure with hypercapnia; R65.21 Severe sepsis with septic shock; J15.5 Pneumonia due to Escherichia coli; N17.9 Acute kidney failure, unspecified; Z16.12 Extended spectrum beta lactamase (ESBL) resistance; F11.20 Opioid dependence, uncomplicated; G35 Multiple sclerosis; G47.33 Obstructive sleep apnea (adult) (pediatric); I10 Essential (primary) hypertension
CPT/HCPCS: 31500; 51701; 70450; 71045; 74176; 80048; 80053; 81003; 81015; 82077; 82330; 82533; 82805; 83605; 83735; 83880; 84100; 84132; 84302; 84443; 84478; 84484; 85025; 85027; 85610; 85730; 87040; 87070; 87071; 87086; 87186; 87205; 87449; 87502; 87641; 87811; 87899; 92610; 93005; 93306; 93971; 94002; 94660; 96361; 96365; 96375; 97162; 97166; 99291

== ENCOUNTER 2023-12-27 19:55 | Inpatient (IN) | payer MEDICARE, OTHER, SELFPAY ==
[2023-12-27] VITALS (9 sets, daily range): BP systolic 88–111; BP diastolic 52–68; BMI 26.5; BMI 30.5
[2023-12-27 14:51] LABS: % Basophils 0.3 % (0-2); % Eosinophils 0.5 % (0-6); % Immature Granulocytes 0.6 % (0-0.5); % Lymphocytes 9.9 % (20.5-51.1); % Monocytes 7.8 % (1.7-9.3); % Neutrophils 80.9 % (42.2-75.2); Absolute Eosinophils 0.1 10^3/uL (0-0.7); Absolute Immature Granulocytes 0.1 10^3/uL (0-0.05); Absolute Lymphocytes 1.4 10^3/uL (1.2-3.4); Absolute Monocytes 1.1 10^3/uL (0.1-0.6); Absolute Neutrophils 11.7 10^3/uL (1.4-6.5); Hemoglobin 11.7 g/dL (13.0-18.0); Mean Corp Hgb Conc. 32.5 g/dL (33.0-37.0); Mean Corpuscular Hgb 29.5 pg (27.0-31.0); Mean Corpuscular Volume 90.7 fL (80.0-94.0); Mean Platelet Volume 10.5 fL (7.4-10.4); Nucleated Red Blood Cells % 0 % (-); Platelet Count 164 10^3/uL (130-400); Red Blood Cell Count 3.97 10^6/uL (4.70-6.10); Red Cell Dist. Width 16.7 % (11.5-14.5); White Blood Cell Count 14.5 10^3/uL (4.8-10.8)
[2023-12-27 15:01] LABS: ALT (SGPT) 86 U/L (0-50); AST (SGOT) 108 U/L (17-59); Albumin 3.6 g/dl (3.5-5.0); Alkaline Phosphatase 425 U/L (38-126); Blood Urea Nitrogen 44 mg/dl (9-20); Calcium 8.7 mg/dl (8.4-10.2); Carbon Dioxide 26 mmol/L (22-30); Chloride 102 mmol/L (98-107); Estimated Creatinine Clearance 60 ml/min; Glucose 126 mg/dl (70-99); Potassium 3.7 mmol/L (3.5-5.1); Sodium 134 mmol/L (135-145); Total Protein 6.3 g/dl (6.3-8.2); eGFR > 60.00
--- NOTE | 2023-12-27 16:06 | ED.GENMED ---
History of Present Illness
<Humera Mckeon MD, Resident - Last Filed: 12/27/23 19:07>
General
Chief Complaint: Skin Problem
Time Seen by Provider: 12/27/23 15:05
History of Present Illness
History of Present Illness:
68-year-old male, Mr. Jesus Lagos with past medical history significant for multiple sclerosis/balance issues/frequent falls, hypertension, CVA, aortic stenosis s/p valve replacement, bilateral hip replacement, bilateral knee replacement
presented to the ER complaining of pain, swelling, redness in the region of left hip. Patient reports that he fell 2 weeks ago on his left hip due to balance issues from multiple sclerosis. Patient did not have any pain, swelling at that time but
later a week he had another fall similar to the earlier one. Patient reports that he was able to ambulate after the fall. But he had he had some swelling and pain, gradual in onset since the next day of the fall and it has gradually worsened.
Patient also reports that he has noticed redness in the region since 4 days. Pain does not radiate anywhere, increases when walking, 6/10 now. Patient reports that he is on chronic pain management with morphine and oxycodone. No history of
lightheadedness, dizziness, headaches, nausea/vomiting, chest pain, SOB, abdominal pain, bladder/bowel disturbances. Patient did not sustain any open wounds during the fall. No history of diabetes, not currently on immunosuppressants.
Past History
<Humera Mckeon MD, Resident - Last Filed: 12/27/23 19:07>
Past History
ED Past Medical History: CVA, GERD, HTN, Other (Multiple sclerosis; previous GI bleeds, Aortic insufficiency, mitral valve prolapse, rheumatic fever, nephrolithiasis), Other (Sepsis, cervicothoracic epidural abscess (MSSA) July 2010, C. difficile,
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
ED Past Surgical History: Cardiac (Aortic valve replacement 2016), Cholecystectomy, Orthopedic (Lumbar laminectomy, right middle toe amputation, bilateral hip replacements x2, bilateral knee replacements x2, right wrist surgery 2008) and Other
(Epidural abscess drainage August 2010 at [facility]; baclofen pump implantation; gastric bypass)
Social History
Tobacco: Former smoker
Alcohol: None
Drug: None
Personal:
Living: with family
Employment: Employed
Family History
Family History: Other (Reviewed and non-contributory)
Phy Exam
<Humera Mckeon MD, Resident - Last Filed: 12/27/23 19:07>
Physical Exam
Physical Exam:
GEN: Well appearing, NAD, WDWN
Eyes: PERRLA, EOMs intact, no scleral icterus
HENT: NCAT, oral mucosa moist, no JVD, no cervical adenopathy.
Lungs: CTAB, no wheezes, rales, rhonchi, normal chest wall excursion
Cardiac: RRR, no M/R/G, no peripheral edema. Radial pulses 2+ bilat
Abdomen: S, NT, ND, NABS, no masses or hepatosplenomegaly
Neuro: AO x 3, reduced strength in the bilateral lower extremities, sensations intact
MSK: Swelling, erythema on the left hip region, 8 x 6 inches in left anterior lateral region of the hip. Increase in warmth and tenderness to palpation. No crepitus. Distal neurovasculature intact
Psych: Calm, cooperative, proper hygiene
Course
<Humera Mckeon MD, Resident - Last Filed: 12/27/23 19:07>
Orders/Labs/Results
Orders:
Orders
12/27/23 14:29
CMP [Comprehensive Metabolic Panel] Urgent
Complete Blood Count/With Diff Urgent
12/27/23 15:03
Lactic Acid Urgent
12/27/23 15:58
CT Lower Ext W/o Iv Cont Lt Urgent
Reason For Exam: left hip pain and redness, fever, ? infected hematoma, s/p 2 recent falls
12/27/23 16:13
Vancomycin [Vancocin] 2,000 mg 0.9% Sodium Chloride 500 ml [Nss] 500 ml IV NOW
12/27/23 16:17
COVID-19 Antigen Urgent
Source: Nasal Swab
12/27/23 16:18
HYDROmorphone [Dilaudid] 0.5 mg IV NOW STA
12/27/23 16:44
HYDROmorphone [Dilaudid] 1 mg IV NOW STA
12/27/23 19:03
Acetaminophen [Tylenol] 650 mg PO NOW STA
12/27/23 19:38
Admit/Transfer Patient As Directed
Co-Sign Provider:
Level of Care: Inpatient admission
Assign to:: Medical/Surgical
Physician / Group: Hospitalist
Diagnosis: Hematoma
Reason for Hospitalization: Hematoma, fever
Expected length of stay greater than two midnights?: Yes
ELOS- Estimated Length of Stay in days: 5
I certify the patient meets the requirements for IP care: Yes
PRN Pain Medication Management As Directed
May give lesser potent ordered pain med per pt: Yes
preference::
Protocol:: Medication orders for pain may be administered in a
manner that supports deferring to patient preference
when the pt is:
-Requesting an ordered lesser potent pain medication.
Least to most potent pain medications are defined as:
acetaminophen < NSAID < tramadol < opioids (morphine,
oxycodone, hydromorphone).
- Requesting a lesser dose of the same medication IF
ORDERED.
- Requesting a less intrusive route of administration
if both routes are prescribed by the provider (PO <
IV).
12/27/23 19:40
Code Status As Directed
Resuscitation Status: Full Code
12/27/23 19:45
Diazepam [Valium] 5 mg PO Q6HPRN PRN
Oxycodone [Roxicodone] 5 mg PO Q4HPRN PRN
12/27/23 20:37
0.9% Sodium Chloride 1000 ml [Nss] 1,000 ml IV 100 mls/hr
Bisacodyl [Dulcolax] 10 mg RECTAL [id number] PRN
Docusate W/Senna [Senokot-S] 1 tablet PO BIDPRN PRN
Lamotrigine [Lamictal] 100 mg PO BID
Losartan [Cozaar] 50 mg PO BID
Polyethylene Glycol Powder [Miralax] 17 grams PO DAILYPRN PRN
VANCOMYCIN Pharmacy to Dose [VANCOCIN Pharmacy to Dose] 1 each Pharmacy To Prepare [Call Pharmacy To Prepare] 0 ml IV PER PROTOCOL
12/27/23 20:37
ORTHOPEDIC CONSULT Routine
Consulting Provider: Efraín Thomas
Was physician already notified: Yes
Reason for consult: hematoma, fever, h/o joint replacement
Activity As Directed
Activity Level: With Assistance
Pneumatic Compression Sleeves As Directed
Type: Knee high
Vital Signs As Directed
Frequency: Per unit guidelines
DX Deep Vein Thrombosis Video Routine
12/27/23 21:00
Ferrous Sulfate [Feosol] 325 mg PO BID
12/27/23 22:00
Morphine Sulfate Extended Rel. [Ms Contin (Extended Release)] 15 mg PO BID
12/28/23 03:00
Baclofen [Lioresal] 30 mg PO BID@0300,0700
Carvedilol [Coreg] 3.125 mg PO BID@0300,1200
12/28/23 Breakfast
Regular
At Your Request: Full Participation
12/28/23 06:08
Complete Blood Count/No Diff IN AM
Comprehensive Metabolic Panel IN AM
12/28/23 07:00
Modafinil [Provigil] 200 mg PO DAILY@0700
12/28/23 08:00
Amlodipine [Norvasc] 5 mg PO DAILY
Clopidogrel Bisulfate [Plavix] 75 mg PO DAILY
Hydrochlorothiazide [Oretic] 25 mg PO DAILY
Pantoprazole [Protonix] 40 mg PO DAILY
12/28/23 12:00
Ascorbic Acid [Vitamin C] 1,000 mg PO DAILY@1200
Cyanocobalamin [Vitamin B-12] 1,000 mcg PO DAILY@1200
Ergocalciferol [Drisdol (Vitamin D2)] 50,000 units PO JACOB@1200
Modafinil [Provigil] 100 mg PO DAILY@1200
Abnormal Lab Results
12/27/23
14:29
WBC 14.5 H 10^3/uL
(4.8-10.8)
RBC 3.97 L 10^6/uL
(4.70-6.10)
Hgb 11.7 L g/dL
(13.0-18.0)
Hct 36.0 L %
(39.0-52.0)
MCHC 32.5 L g/dL
(33.0-37.0)
RDW 16.7 H %
(11.5-14.5)
MPV 10.5 H fL
(7.4-10.4)
Abs Immat Gran (auto) 0.1 H 10^3/uL
(0-0.05)
Absolute Neuts (auto) 11.7 H 10^3/uL
(1.4-6.5)
Absolute Monos (auto) 1.1 H 10^3/uL
(0.1-0.6)
Immature Gran % 0.6 H %
(0-0.5)
Neutrophils % 80.9 H %
(42.2-75.2)
Lymphocytes % 9.9 L %
(20.5-51.1)
Sodium 134 L mmol/L
(135-145)
BUN 44 H mg/dl
(9-20)
Glucose 126 H mg/dl
(70-99)
AST 108 H U/L
(17-59)
ALT 86 H U/L
(0-50)
Alkaline Phosphatase 425 H U/L
(38-126)
12/27/23 14:29
12/27/23 14:29
Vital Signs
Initial and Last Documented VS:
Initial Vital Signs
Temp Pulse Resp BP Pulse Ox
100.8 F H 84 16 102/58 97
12/27/23 14:07 12/27/23 14:07 12/27/23 14:07 12/27/23 14:07 12/27/23 14:07
Last Documented Vital Signs
Temp Pulse Resp BP Pulse Ox
99.8 F 83 17 121/67 92
12/29/23 07:45 12/29/23 11:05 12/29/23 07:45 12/29/23 11:05 12/29/23 11:56
<Berry H. DO Livia - Last Filed: 12/29/23 15:29>
Orders/Labs/Results
Orders:
Orders
12/27/23 14:29
CMP [Comprehensive Metabolic Panel] Urgent
Complete Blood Count/With Diff Urgent
12/27/23 15:03
Lactic Acid Urgent
12/27/23 15:58
CT Lower Ext W/o Iv Cont Lt Urgent
Reason For Exam: left hip pain and redness, fever, ? infected hematoma, s/p 2 recent falls
12/27/23 16:13
Vancomycin [Vancocin] 2,000 mg 0.9% Sodium Chloride 500 ml [Nss] 500 ml IV NOW
12/27/23 16:17
COVID-19 Antigen Urgent
Source: Nasal Swab
12/27/23 16:18
HYDROmorphone [Dilaudid] 0.5 mg IV NOW STA
12/27/23 16:44
HYDROmorphone [Dilaudid] 1 mg IV NOW STA
12/27/23 19:03
Acetaminophen [Tylenol] 650 mg PO NOW STA
12/27/23 19:38
Admit/Transfer Patient As Directed
Co-Sign Provider:
Level of Care: Inpatient admission
Assign to:: Medical/Surgical
Physician / Group: Hospitalist
Diagnosis: Hematoma
Reason for Hospitalization: Hematoma, fever
Expected length of stay greater than two midnights?: Yes
ELOS- Estimated Length of Stay in days: 5
I certify the patient meets the requirements for IP care: Yes
PRN Pain Medication Management As Directed
May give lesser potent ordered pain med per pt: Yes
preference::
Protocol:: Medication orders for pain may be administered in a
manner that supports deferring to patient preference
when the pt is:
-Requesting an ordered lesser potent pain medication.
Least to most potent pain medications are defined as:
acetaminophen < NSAID < tramadol < opioids (morphine,
oxycodone, hydromorphone).
- Requesting a lesser dose of the same medication IF
ORDERED.
- Requesting a less intrusive route of administration
if both routes are prescribed by the provider (PO <
IV).
12/27/23 19:40
Code Status As Directed
Resuscitation Status: Full Code
12/27/23 19:45
Diazepam [Valium] 5 mg PO Q6HPRN PRN
Oxycodone [Roxicodone] 5 mg PO Q4HPRN PRN
12/27/23 20:37
0.9% Sodium Chloride 1000 ml [Nss] 1,000 ml IV 100 mls/hr
Bisacodyl [Dulcolax] 10 mg RECTAL [id number] PRN
Docusate W/Senna [Senokot-S] 1 tablet PO BIDPRN PRN
Lamotrigine [Lamictal] 100 mg PO BID
Losartan [Cozaar] 50 mg PO BID
Polyethylene Glycol Powder [Miralax] 17 grams PO DAILYPRN PRN
VANCOMYCIN Pharmacy to Dose [VANCOCIN Pharmacy to Dose] 1 each Pharmacy To Prepare [Call Pharmacy To Prepare] 0 ml IV PER PROTOCOL
12/27/23 20:37
ORTHOPEDIC CONSULT Routine
Consulting Provider: Efraín Thomas
Was physician already notified: Yes
Reason for consult: hematoma, fever, h/o joint replacement
Activity As Directed
Activity Level: With Assistance
Pneumatic Compression Sleeves As Directed
Type: Knee high
Vital Signs As Directed
Frequency: Per unit guidelines
DX Deep Vein Thrombosis Video Routine
12/27/23 21:00
Ferrous Sulfate [Feosol] 325 mg PO BID
12/27/23 22:00
Morphine Sulfate Extended Rel. [Ms Contin (Extended Release)] 15 mg PO BID
12/28/23 03:00
Baclofen [Lioresal] 30 mg PO BID@0300,0700
Carvedilol [Coreg] 3.125 mg PO BID@0300,1200
12/28/23 Breakfast
Regular
At Your Request: Full Participation
12/28/23 06:08
Complete Blood Count/No Diff IN AM
Comprehensive Metabolic Panel IN AM
12/28/23 07:00
Modafinil [Provigil] 200 mg PO DAILY@0700
12/28/23 08:00
Amlodipine [Norvasc] 5 mg PO DAILY
Clopidogrel Bisulfate [Plavix] 75 mg PO DAILY
Hydrochlorothiazide [Oretic] 25 mg PO DAILY
Pantoprazole [Protonix] 40 mg PO DAILY
12/28/23 12:00
Ascorbic Acid [Vitamin C] 1,000 mg PO DAILY@1200
Cyanocobalamin [Vitamin B-12] 1,000 mcg PO DAILY@1200
Ergocalciferol [Drisdol (Vitamin D2)] 50,000 units PO JACOB@1200
Modafinil [Provigil] 100 mg PO DAILY@1200
Abnormal Lab Results
12/27/23
14:29
WBC 14.5 H 10^3/uL
(4.8-10.8)
RBC 3.97 L 10^6/uL
(4.70-6.10)
Hgb 11.7 L g/dL
(13.0-18.0)
Hct 36.0 L %
(39.0-52.0)
MCHC 32.5 L g/dL
(33.0-37.0)
RDW 16.7 H %
(11.5-14.5)
MPV 10.5 H fL
(7.4-10.4)
Abs Immat Gran (auto) 0.1 H 10^3/uL
(0-0.05)
Absolute Neuts (auto) 11.7 H 10^3/uL
(1.4-6.5)
Absolute Monos (auto) 1.1 H 10^3/uL
(0.1-0.6)
Immature Gran % 0.6 H %
(0-0.5)
Neutrophils % 80.9 H %
(42.2-75.2)
Lymphocytes % 9.9 L %
(20.5-51.1)
Sodium 134 L mmol/L
(135-145)
BUN 44 H mg/dl
(9-20)
Glucose 126 H mg/dl
(70-99)
AST 108 H U/L
(17-59)
ALT 86 H U/L
(0-50)
Alkaline Phosphatase 425 H U/L
(38-126)
12/27/23 14:29
12/27/23 14:29
Vital Signs
Initial and Last Documented VS:
Initial Vital Signs
Temp Pulse Resp BP Pulse Ox
100.8 F H 84 16 102/58 97
12/27/23 14:07 12/27/23 14:07 12/27/23 14:07 12/27/23 14:07 12/27/23 14:07
Last Documented Vital Signs
Temp Pulse Resp BP Pulse Ox
99.8 F 83 17 121/67 92
12/29/23 07:45 12/29/23 11:05 12/29/23 07:45 12/29/23 11:05 12/29/23 11:56
<Humera Mckeon MD, Resident - Last Filed: 12/27/23 19:07>
MDM/Problems Addressed
Differential Diagnosis Includes:
Hematoma versus cellulitis versus prosthetic joint infection.
MDM/Problems Addressed:
Patient is febrile at 100.8, no subjective chills.
Leukocytosis, WBC at 14.5
We will give him stat vancomycin-risk of prosthetic joint infection.
Anemia, hemoglobin 11.7, BUN�44, glucose 126
Lactic acid normal.
Transaminitis
Pain control with Dilaudid
COVID test negative
CT left lower extremity with IV contrast-evidence of hematoma
Vanco stat.
May need aspiration of the hematoma.risk of hardware infection
Admitting.
Chronic conditions affecting care:
Multiple sclerosis
Chronic conditions affecting care: Neurological disorder
<Humera Mckeon MD, Resident - Last Filed: 12/27/23 19:07>
*Critical Care Note
Total Time (30-74mins, 75-104mins- exclusive of procedures): Not Applicable
ED Attending Note
<Humera Mckeon MD, Resident - Last Filed: 12/27/23 19:07>
-
Portions of this chart may have been created with voice recognition software.� Occasional wrong word or��sound alike� substitutions may have occurred due to the inherent limitations of voice recognition software.
<Berry Bhakta, - Last Filed: 12/29/23 15:29>
ED Attending Note
Patient seen and examined by attending physician: Yes
I performed a history and physical exam of patient and discussed management with resident, I reviewed resident's note and agree with documented findings and plan of care.: Yes
ED Attending Note:
Patient presents complaining of left hip redness, pain and subjective fever. Patient found to be febrile here at 100.8. Patient has had a couple falls which is difficulty ambulating from MS. He landed on his left hip both times. He has a history
of a left hip replacement. Patient noticed some swelling in the left hip area. Over the past days the pain has increased in intensity and he noted some redness in the area
General: Awake, Alert, Oriented X3. No acute distress.
Vitals: Febrile
Head: Atraumatic
Eyes: Pupils equal, EOMI
Throat: Airway intact, no exudates
Neck: Trachea midline
Lungs: Clear and equal b/l
Heart: Regular rate, no murmurs
Abd: Soft, Nontender, No pulsatile mass
Neuro: Nonfocal
Skin: Warm, dry, no rash
Extremities: Large left-sided hematoma noted left upper, lateral thigh. Area is firm to palpation. Overlying skin has some ecchymosis but additionally there is erythema which extends into the groin and down to the mid thigh. Area is tender to
palpation. Distal left leg is neurovascularly intact
Differential includes left thigh hematoma, infected left thigh hematoma, cellulitis
Given fever and also patient noted to have an elevated white blood cell count of 14.5. Patient will require hospitalization given underlying hardware infection to be treated aggressively. Will obtain a CT to make sure there is no evidence of air
and hematoma.
Discharge Plan
Departure
Patient Disposition: Admit
Date of Disposition: 12/27/23
Time of Disposition: 19:02
Admit to: Med/Surg
Presentation/result/management discussed w/ accepting MD/DO: Hospitalist
Patient with high blood pressure during this ER visit?: No
Condition: Good
Discharge Problem:
Hematoma, fever
Interventions
Interventions:
*Risk Screen - Suicide Last Done: 12/27/23 14:07
*General Assessment Last Done: 12/27/23 14:07
*Neglect/Abuse Screening Last Done: 12/27/23 14:07
ED- Fall Risk Assessment Last Done: 12/27/23 17:02
*ED COVID-19 Vaccine History Last Done: 12/27/23 14:20
*Nursing Disposition Last Done: 12/27/23 20:48
ED-Skin Assessment Last Done: 12/27/23 14:20
Discharge Date and Time
Discharge Date/Time: 12/27/23 20:48
[2023-12-27] MEDS: DILAUDID 0.5 MG IV (16:22)
[2023-12-27] MEDS: VANCOCIN 540 MG IV (16:23)
[2023-12-27] MEDS: DILAUDID 1 MG IV (16:47)
[2023-12-27 16:51] LABS: COVID-19 Antigen Negative (Negative)
--- NOTE | 2023-12-27 19:01 | HPS.HSE ---
Family Physician
-
Family Physician: Berry Valderrama
Chief Complaint
-
Fever, leg pain
History of Present Illness
68-year-old man, comes in with pain, swelling, redness in the region of left hip. He reports that he fell 2 weeks ago on his left hip (due to balance issues from MS). He initially did not have any pain or swelling but one week later he had another
fall. He reports that he was able to ambulate after the second fall, but he has had some swelling and pain, (gradual in onset since the next day of the fall). This has gradually worsened and he has then noticed redness in the region since 4 days
ago. No history of lightheadedness, dizziness, headaches, nausea/vomiting, chest pain, SOB, abdominal pain, bladder/bowel disturbances. He did not sustain any open wounds during the fall. No history of diabetes, not currently on
immunosuppressants. At the time of my interview, he was comfortable, eating a cookie, and had no other complaints.
Medical History
Past Medical History
Past Medical History: Reports Other
Additional Past Medical History:
CVA,
GERD,
Essential HTN
Multiple sclerosis;
previous GI bleeds,
Aortic insufficiency,
mitral valve prolapse,
rheumatic fever,
nephrolithiasis
Sepsis,
cervicothoracic epidural abscess (MSSA) July 2010,
C. difficile,
seizure September 2021
Gout,
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
Aortic valve replacement 2016
Cholecystectomy,
Lumbar laminectomy,
right middle toe amputation,
bilateral hip replacements x2,
bilateral knee replacements x2,
right wrist surgery 2008
Epidural abscess drainage August 2010 at [facility];
baclofen pump implantation;
gastric bypass
Past Surgical History: Reports Other
Additional Past Surgical History:
See above
Social History
Tobacco: Non-smoker
Alcohol: None
Drug: None
Personal:
Living: With Family
Family History
Family History: Not pertinent
Allergies / Home Medications
Allergies reflects when Allergies were last updated in [facility].
Home Medications with original date entered in [facility]
Allergy/Medication List:
Allergies
Allergy/AdvReac Type Severity Reaction Status Date / Time
CHANDLER Inhibitors Allergy COUGH Verified 12/27/23 14:05
cephalexin monohydrate Allergy Rash/tolerated Verified 12/27/23 14:05
[From Keflex] Zosyn
quinapril HCl [From Accupril] Allergy COUGH--CHANDLER Verified 12/27/23 14:05
INHIBITORS
Home Medications
esomeprazole magnesium 40 mg capsule,delayed release (Nexium) 40 mg PO DAILY Gastrointestinal issue 09/27/14
ferrous sulfate 325 mg (65 mg iron) tablet (iron) 325 mg PO BID Supplement 06/27/21
ergocalciferol (vitamin D2) 1,250 mcg (50,000 unit) capsule 50,000 units PO JACOB@1200 Supplement 08/10/21
ascorbic acid (vitamin C) 1,000 mg tablet (Vitamin C) 1,000 mg PO DAILY@1200 Supplement 12/30/21
cyanocobalamin (vitamin B-12) 1,000 mcg tablet 1,000 mcg PO DAILY@1200 Supplement 12/30/21
losartan 50 mg tablet 50 mg PO BID Blood Pressure 07/21/22
midazolam 5 mg/spray (0.1 mL) nasal spray (Nayzilam) 5 mg intranasal DAILYPRN PRN SEIZURE >3MINUTES 07/21/22
amlodipine 5 mg tablet 5 mg PO DAILY Blood Pressure 03/04/23
baclofen 10 mg tablet 30 mg PO BID@0300,0700 Muscle Spasms 03/04/23
clopidogrel 75 mg tablet (Plavix) 75 mg PO DAILY Blood Clot Prevention/Tx 03/04/23
diazepam 5 mg tablet (Valium) 5 mg PO Q6HPRN PRN muscle spasms 03/04/23
lamotrigine 100 mg tablet 100 mg PO BID Seizures 03/04/23
modafinil 100 mg tablet 100 mg PO DAILY@1200 Neurological Condition 03/04/23
oxycodone 5 mg tablet 5 mg PO Q4HPRN PRN breakthrough pain 03/04/23
baclofen 20 mg tablet 40 mg PO DAILY@1900 Muscle Spasms 11/11/23
carvedilol 3.125 mg tablet 3.125 mg PO BID@0300,1200 Blood Pressure 11/11/23
hydrochlorothiazide 25 mg tablet 25 mg PO DAILY Blood Pressure 11/11/23
modafinil 200 mg tablet (Provigil) 200 mg PO DAILY@0700 Neurological Condition 11/11/23
naloxone 4 mg/actuation nasal spray 1 spray intranasal Q3MPRN PRN UNRESPONSIVENESS 11/11/23
morphine 15 mg tablet,extended release 15 mg PO BID #10 tabs 11/14/23
Review of Systems
-
History Source: Patient
A 12 point ROS was completed and negative except as noted: Yes
Physical Exam
Vital Signs
Vital Signs
Temp Pulse Resp BP Pulse Ox
100.7 F H 91 20 105/59 98
12/27/23 18:59 12/27/23 18:59 12/27/23 18:59 12/27/23 18:00 12/27/23 18:59
Physical Exam
General: Well Developed, Well Nourished, No Apparent Distress, Comfortable and Conversant
HEENT: NormoCephalic, Anicteric, Moist mucous membranes, No Ptosis, Nose Appears Normal and Ears Appear Normal
Respiratory: Clear
Cardiac: S1/S2, Regular Rhythm and Murmur
GI: Soft, Non Tender and Non Distended
Musculoskeletal: No Clubbing, No Cyanosis and No Edema
Skin: Warm and Dry
Neuro: Awake, Alert, Oriented and AO x 3
Psych: Calm
Laboratory Results
-
12/27/23 14:29
12/27/23 14:29
Laboratory Results
Lactic Acid 1.0 mmol/L (0.7-2.0) 12/27/23 15:03
Total Bilirubin 1.0 mg/dl (0.2-1.3) 12/27/23 14:29
AST 108 U/L (17-59) H 12/27/23 14:29
ALT 86 U/L (0-50) H 12/27/23 14:29
Alkaline Phosphatase 425 U/L (38-126) H 12/27/23 14:29
Data Reviewed
-
Lab Data: Labs Reviewed by me
Impression/Plan
-
IMPRESSION:
68 man who had two falls and is found to have a hematoma and a fever. Significant finding:
No acute osseous fracture identified. No CT evidence to suggest osteomyelitis.
8 x 3 x 10 cm focal collection within the deep subcutaneous tissues in the left lateral pelvic region. Given the history of fall/trauma, most likely representing hematoma formation.
Associated diffuse linear and reticular soft tissue stranding of the subcutaneous fat and relatively diffuse skin thickening noted, consistent with soft tissue swelling/edema.
No subcutaneous emphysema. No radiopaque foreign body.
If there is significant clinical concern for the possibility of superimposed infection/infected hematoma, consider aspiration analysis.
Temp 100.8
WBC 14.5
BUN/creat 44/1.0
AST/ALT 108/86
A-phos 425
PLAN:
1. Hematoma, fever, and history of past hip replacement
Abx tonight
Ortho consult
2. BUN/Creatinine > 20, likely dehydration from increased metabolic demand
Saline
Re-check in am
3. Elevated AST/ALT and Alk-phos - unclear cause
Trend daily
Start further diagnostic workup if numbers worsen
4. Other identified issues:
Recent Past Escherichia coli pneumonia and septic shock. Admit earlier in the year with the following Dx:
Ventilator dependent respiratory failure for airway protection
Acute hypercapnic respiratory failure
Acute kidney injury
Acute toxic metabolic encephalopathy
Reported tick bite
Right upper extremity superficial venous thrombus
These do not appear to be active problems at this time
Other Chronic diagnoses to keep an eye on:
Relapsing remitting multiple sclerosis
Chronic pain narcotic dependence
Essential hypertension
Obstructive sleep apnea
History of gastrointestinal bleed
History of bovine aortic valve placement
History of lumbar laminectomy
History of bilateral hip replacement
History of bilateral knee replacement
History of epidural abscess requiring drainage in
History of baclofen pump placement with explantation x3 due to complications/meningitis
Full code
VCD for DVTp
[2023-12-27] MEDS: TYLENOL 650 MG PO ×2 (19:16→21:23)
[2023-12-27] MEDS: ROXICODONE 5 MG PO (19:55)
[2023-12-27] MEDS: VALIUM 5 MG PO (19:56)
[2023-12-27] MEDS: LIORESAL 40 MG PO (21:20)
[2023-12-27] MEDS: MS CONTIN (EXTENDED RELEASE) 15 MG PO (21:20)
[2023-12-27] MEDS: FEOSOL 325 MG PO (21:21)
[2023-12-27] MEDS: COZAAR 50 MG PO (21:22)
[2023-12-27] MEDS: NSS 1000 IV (21:22)
[2023-12-27] MEDS: LAMICTAL 100 MG PO (21:22)
--- NOTE | 2023-12-27 22:25 | PHA.VAN.IN ---
Assessment
- Assessment
Renal Function: Appears elevated from baseline (baseline 0.6, current 1.0)
Maximum Temperature: 102.7
Plan
- Plan
Initial / Loading Dose: vanc 2000 mg (28 mg/kg) 12/26 16:23
Maintenance Regimen: dose by level
Monitoring: random 8/ am labs
MRSA Screen: Ordered per protocol
Pharmacokinetics Vancomycin I
- -
Patient Age: 68
Patient Sex: Male
Vancomycin Day #: 1
Indication: Bone And Joint
Requesting Provider: Dr Patricia
Pertinent Antimicrobial Allergies:
cephalexin monohydrate [From KeOpzi] Allergy (Verified 12/27/23 14:05) Rash/tolerated Zosyn
Height / Weight:
Height 5 ft
Actual Weight 70.76 kg
Pertinent Past Medical History: MS
- Vital Signs / Lab Results
Temp Pulse Resp BP Pulse Ox
102.7 F H 90 20 103/52 95
12/27/23 20:51 12/27/23 20:51 12/27/23 20:51 12/27/23 20:51 12/27/23 20:56
Lab Results - Hematology
12/27/23
14:29
WBC 14.5 H
Lab Results - Chemistry
12/27/23
14:29
BUN 44 H
Creatinine 1.0
Estimated Creat Clear 60
Albumin 3.6
12/27/23
15:03
Lactic Acid 1.0
[2023-12-27] MEDS: NSS 500 IV (22:33)
[2023-12-28] VITALS: BP 104/64
[2023-12-28 03:21] VITALS: BP 101/61
[2023-12-28] MEDS: LIORESAL 30 MG PO ×2 (03:34→06:14)
--- NOTE | 2023-12-28 03:34 | PTCARENOTE ---
Pt BP has been running low. Pt was given a 500 ml bolus previously for a SBP mid 80's. PROFESSOR OF RELIGION notified. Pt has Coreg order at 0300 and med was held per provider. Pt agreed to space his meds to prevent low BP.
[2023-12-28] MEDS: PROVIGIL 200 MG PO (06:15)
[2023-12-28] MEDS: NSS 1000 IV ×2 (06:15→18:18)
[2023-12-28 06:46] LABS: Vancomycin Random 12.5 ug/ml
[2023-12-28 06:49] LABS: Hematocrit 29.9 % (39.0-52.0); Mean Corp Hgb Conc. 33.4 g/dL (33.0-37.0); Mean Corpuscular Hgb 29.5 pg (27.0-31.0); Mean Corpuscular Volume 88.2 fL (80.0-94.0); Mean Platelet Volume 10.9 fL (7.4-10.4); Platelet Count 144 10^3/uL (130-400); Red Blood Cell Count 3.39 10^6/uL (4.70-6.10); Red Cell Dist. Width 16.6 % (11.5-14.5); White Blood Cell Count 12.3 10^3/uL (4.8-10.8)
[2023-12-28 06:59] LABS: ALT (SGPT) 135 U/L (0-50); AST (SGOT) 144 U/L (17-59); Albumin 2.8 g/dl (3.5-5.0); Alkaline Phosphatase 406 U/L (38-126); Blood Urea Nitrogen 37 mg/dl (9-20); Calcium 8.1 mg/dl (8.4-10.2); Carbon Dioxide 23 mmol/L (22-30); Chloride 107 mmol/L (98-107); Estimated Creatinine Clearance 71 ml/min; Glucose 115 mg/dl (70-99); Potassium 3.7 mmol/L (3.5-5.1); Sodium 134 mmol/L (135-145); Total Bilirubin 0.7 mg/dl (0.2-1.3); Total Protein 5.4 g/dl (6.3-8.2); eGFR > 60.00
[2023-12-28 07:32] VITALS: BP 100/57
--- NOTE | 2023-12-28 08:11 | PHA.VAN.FU ---
Vancomycin Assessment / Plan
- Assessment
Renal Function: SCR Decreasing
WBC's are: Trending Down
In the past 24 hrs, patient has been: Febrile (102.7F)
- Assessment - Therapeutic Drug Monitoring
Random Level: 12.5
- Dosing Plan
Dosing by Level: Re-dose today (1250mg)
Dosing Comments: BUN is still elevated
- Monitoring Plan
Random Level: 8/12 in AM
- Follow Up
Pharmacy will continue to follow.
Vancomycin Follow UP
- -
Patient Age: 68
Patient Sex: Male
Vancomycin Day #: 2
Indication: Bone And Joint
Requesting Provider: Dr Patricia
Pertinent Antimicrobial Allergies:
cephalexin monohydrate [From Keflex] Allergy (Verified 12/27/23 14:05) Rash/tolerated Zosyn
Height / Weight:
Height 5 ft
Actual Weight 70.76 kg
Pertinent Past Medical History: MS
- Vital Signs / Lab Results
Temp Pulse Resp BP Pulse Ox
97.9 F 75 16 100/57 97
12/28/23 07:32 12/28/23 07:32 12/28/23 07:32 12/28/23 07:32 12/28/23 07:32
Lab Results - Hematology
12/27/23 12/28/23
14:29 06:08
WBC 14.5 H 12.3 H
Lab Results - Chemistry
12/27/23 12/28/23
14:29 06:08
BUN 44 H 37 H
Creatinine 1.0 0.8
Estimated Creat Clear 60 71
Albumin 3.6 2.8 L
12/27/23
15:03
Lactic Acid 1.0
Therapeutic Drug Monitoring
Random Vancomycin 12.5 ug/ml 12/28/23 06:08
[2023-12-28] MEDS: MS CONTIN (EXTENDED RELEASE) 15 MG PO ×2 (08:34→20:06)
[2023-12-28] MEDS: FEOSOL 325 MG PO ×2 (08:34→20:06)
[2023-12-28] MEDS: PROTONIX 40 MG PO (08:35)
[2023-12-28] MEDS: LAMICTAL 100 MG PO ×2 (08:35→20:06)
--- NOTE | 2023-12-28 08:37 | CON.ORTHO ---
Consultation
-
Date/Time Consultation Requested: Jan 09
Date/Time Consultation Performed: Jan 09
Requesting Provider: Belem
Performing Provider: Alan for William
Reason for Consultation: Left thigh hematoma, r/o underlying soft tissue infection
Consultation - Orthopedics
History
Dictation#[id number]
HPI:
Requested in consult to this pleasant 68 y/o white male with PMH CVA, GERD, Essential HTN Multiple sclerosis, previous GI bleeds, Aortic insufficiency, mitral valve prolapse, nephrolithiasis, rheumatic fever, Sepsis, cervicothoracic epidural abscess
(MSSA) July 2010, C. difficile, seizure September 2021, gout who presented through the [facility] last evening with significantly worsening left hip pain after 2 falls over the last 2 weeks, most recent 1 week ago. No prodrome or headstrike. No LOC. Believes
falls related to his MS. He presented with a low grade fever and slightly elevated WBC. He is known to Dr. Zepeda for B/L BRY about 8-10 years ago. Also with B/L TKA. Has been started on IV ABX. We have been requested in consult regarding his thigh
swelling. Of note he does take Plavix. Xrays and subsequent CT reveal BRY to be positioned well. No periprosthetic fracture. Findings on CT appear to be consistent with hematoma
Allergies / Home Medications
Allergy/AdvReac Type Severity Reaction Status Date / Time
CHANDLER Inhibitors Allergy COUGH Verified 12/27/23 14:05
cephalexin monohydrate Allergy Rash/tolerated Verified 12/27/23 14:05
[From Keflex] Zosyn
quinapril HCl [From Accupril] Allergy COUGH--CHANDLER Verified 12/27/23 14:05
INHIBITORS
�Medication �Instructions �Recorded
esomeprazole magnesium 40 mg 40 mg PO DAILY Gastrointestinal 09/27/14
capsule,delayed release (Nexium) issue
ferrous sulfate 325 mg (65 mg 325 mg PO BID Supplement 06/27/21
iron) tablet (iron)
ergocalciferol (vitamin D2) 1,250 50,000 units PO JACOB@1200 Supplement 08/10/21
mcg (50,000 unit) capsule
ascorbic acid (vitamin C) 1,000 mg 1,000 mg PO DAILY@1200 Supplement 12/30/21
tablet (Vitamin C)
cyanocobalamin (vitamin B-12) 1,000 mcg PO DAILY@1200 Supplement 12/30/21
1,000 mcg tablet
losartan 50 mg tablet 50 mg PO BID Blood Pressure 07/21/22
midazolam 5 mg/spray (0.1 mL) 5 mg intranasal DAILYPRN PRN 07/21/22
nasal spray (Nayzilam) SEIZURE >3MINUTES
amlodipine 5 mg tablet 5 mg PO DAILY Blood Pressure 03/04/23
baclofen 10 mg tablet 30 mg PO BID@0300,0700 Muscle 03/04/23
Spasms
clopidogrel 75 mg tablet (Plavix) 75 mg PO DAILY Blood Clot 03/04/23
Prevention/Tx
diazepam 5 mg tablet (Valium) 5 mg PO Q6HPRN PRN muscle spasms 03/04/23
lamotrigine 100 mg tablet 100 mg PO BID Seizures 03/04/23
modafinil 100 mg tablet 100 mg PO DAILY@1200 Neurological 03/04/23
Condition
oxycodone 5 mg tablet 5 mg PO Q4HPRN PRN breakthrough 03/04/23
pain
baclofen 20 mg tablet 40 mg PO DAILY@1900 Muscle Spasms 11/11/23
carvedilol 3.125 mg tablet 3.125 mg PO BID@0300,1200 Blood 11/11/23
Pressure
hydrochlorothiazide 25 mg tablet 25 mg PO DAILY Blood Pressure 11/11/23
modafinil 200 mg tablet (Provigil) 200 mg PO DAILY@0700 Neurological 11/11/23
Condition
naloxone 4 mg/actuation nasal spray 1 spray intranasal Q3MPRN PRN 11/11/23
UNRESPONSIVENESS
morphine 15 mg tablet,extended 15 mg PO BID #10 tabs 11/14/23
release
Vital Signs / Lab Results
Temp Pulse Resp BP Pulse Ox
97.9 F 75 16 100/57 97
12/28/23 07:32 12/28/23 07:32 12/28/23 07:32 12/28/23 07:32 12/28/23 07:32
12/28/23 06:08
12/28/23 06:08
Assessment / Plan
PE: Currently Afeb, but presented low grade. Bedrest. Left thigh with scar from previous BRY. There is some ecchymosis of the mid thigh with erythema (more ecchymotic appearing than cellulitic in my opinion) noted of the proximal anterior/lateral
thigh. No significant warmth when compared to the rest of his leg. No breaks in the skin around the hip but a scabbed over abrasion over the left knee. Generalized tenderness over the lateral thigh. No pain over the hip capsule. Ranging of the hip
with a mild amount of lateral thigh pain, but no groin pain. Knee nontender. Scar noted from TKA. Calf soft, nontender. DNVI LLE
Diagnostics: Xrays and correlating CT without fracture. 8x3x10 collection noted in the subq soft tissues most consistent with hematoma
Impression: Hematoma Left thigh
Plan: Discussed with the patient bedside, and he is agreeable with the plan. Based on his history, clinical picture, exam, and diagnostics I believe we are dealing with a left thigh hematoma. He also takes Plavix, which I believe is contributing. I
feel it best that we observe here. He is on IV ABX. His WBC is trending down and he is currently Afeb. His hip ranges well, albeit some discomfort over the lateral thigh. Based on his history of fall, the last one 1 week ago, I believe an IR
aspiration would likely not yield. He is also currently on IV ABX. If his clinical picture worsens, this could be a consideration, but the findings on CT truly appear to me to be hematoma. IR aspiration could be considered if we don't see
improvement, or is picture worsens. Would manage supportively for now. Ice to left hip. PT/OT could be considered. Continue Tx per the primary team. Discussed with Dr. Jeffries
[2023-12-28] MEDS: COZAAR PO ×2 (11:03→20:22)
[2023-12-28] MEDS: ORETIC PO (11:03)
[2023-12-28] MEDS: VANCOCIN 275 MG IV (11:13)
[2023-12-28] MEDS: PROVIGIL 100 MG PO (11:14)
[2023-12-28] MEDS: VITAMIN C 1000 MG PO (11:14)
[2023-12-28] MEDS: VITAMIN B-12 1000 MCG PO (11:16)
[2023-12-28] MEDS: COREG PO ×2 (11:17→23:52)
[2023-12-28] MEDS: DRISDOL (VITAMIN D2) 50000 UNITS PO (11:17)
--- NOTE | 2023-12-28 12:35 | W.PN.HOSP.TC ---
Today's Communication/Plan
-
Hold Plavix
Trend daily CBC
Consider IR consult if clinically worsening
Assessment / Plan
Assessment / Plan
#Hematoma of left hip
#H/O hip replacement
-Posttraumatic, multiple mechanical falls at home related to MS and orthotics
-Both falls that he mentions involved falling onto his left hip, to avoid head injury
-Significant swelling at the site of his left hip, skin is tense, tender to palpation
-Orthopedics evaluated today, likely to coagulated for removal
Plan
-Holding Plavix, will monitor clinically, consider IR for drainage if worsening
-Continue IV antibiotics, low threshold to DC
-Trend daily CBC, monitor for fevers
#Elevated LFTs -- mixed pattern
-Unclear etiology, transaminases elevated to 3 time UNL, ALP near 4 time
-Suspect this is related to hematoma with fall injury recently
-Transaminases may be a muscle origin, ALP related to bone injury
-Bilirubin level has been normal on both lab draws
Plan
-Monitor daily LFTs
-If continuing to worsen, order RUQ US
-Trend daily CBC
#Hypertension
-Home medications include losartan, HCTZ and amlodipine
-BP has been soft while here, possibly from analgesia and blood loss
-Discontinued amlodipine, added hold parameters to other meds
#Chronic anemia
-Seems to have a component of TALYA, on twice daily iron supplementation
-Hemoglobin baseline appears to be around 11, was near 10 on admission due to hematoma
-See above for more detail
#Seizure disorder
-Unclear etiology, may be related with multiple sclerosis diagnosis
-Home medications include lamotrigine, Nayzilam as needed
#Recent hospitalization for E. coli pneumonia and septic
-No signs of recurrence, hospital stay was C/B VDRF and CRISTELA with encephalopathy
-Also had a RUE superficial venous thrombus during that hospital stay
#Relapsing remitting multiple sclerosis
-Records here did not show any disease modifying therapies on pharmacy records
-Does seem to be complicated by spasticity, foot drop, possibly seizures
-No obvious signs of a flare, denies worsening weakness or new neurological symptoms
#Chronic pain with opioid dependence
#Baclofen pump placement with explantation 3 times
#H/O meningitis
-On multimodal pain regimen with morphine, oxycodone, baclofen
-Has required baclofen pump at times, did lead to development of meningitis
-No complaints of severe pain as of now
#H/O GIB
-Home medications include esomeprazole 40 mg daily
-Unclear etiology, suspect it was upper bleed due to PPI
#H/O bovine AVR
-Valve seems to function well per exam today
# S/P orthopedic procedures
-B/L knee and hip replacements, lumbar laminectomy
DVT prophylaxis: SCDs
Diet: Regular
CODE STATUS: Full code
Anticipated Discharge: 24 - 48 hours
Subjective/Interval History
-
Date of Service: December 28, 2023
Seen and examined at the bedside. No acute events.
He denies any acute complaints today. Has some pain in his left hip though states it is fairly well-managed when he is lying down. He denies chest pain, shortness of breath, fevers or chills, nausea, vomiting, diarrhea, constipation, abnormal
bleeding or bruising in other regions. Denies any new paresthesias or muscle weakness. Does have chronic foot drop, wears orthotics in the context of his multiple sclerosis.
States that his falls recently that led to the hip hematoma with both mechanical in nature. Related to foot drop, striking his heel due to the orthotic that he wears.
Objective Data
-
Labs:
Laboratory Results
12/28/23
06:08
WBC 12.3 H
Hgb 10.0 L
Hct 29.9 L
Plt Count 144
Sodium 134 L
Potassium 3.7
Chloride 107
Carbon Dioxide 23
BUN 37 H
Creatinine 0.8
Glucose 115 H
Calcium 8.1 L
Total Bilirubin 0.7
AST 144 H
ALT 135 H
Alkaline Phosphatase 406 H
Vital Signs:
Vital Signs
Temp Pulse Resp BP Pulse Ox
97.9 F 81 16 94/59 97
12/28/23 07:32 12/28/23 11:17 12/28/23 07:32 12/28/23 11:17 12/28/23 07:32
I&O
12/27/23 12/28/23 12/29/23
06:59 06:59 06:59
Intake Total 1770 / 1770
Output Total 800 / 800
Balance 970 / 970
Review of Systems
-
History Source: Patient
All other systems: Reviewed and negative
Physical Exam
-
General: No Apparent Distress, Comfortable and Appears Chronically Ill
HEENT: Normocephalic, Atraumatic and Moist Mucous Membranes
Respiratory: Clear to Auscultation and Non Labored Respirations
Cardiac: Regular Rhythm and S1/S2; Negative Murmur, Rub or Gallop
GI: Soft, Nontender, Nondistended and Normal Bowel Sounds
Musculoskeletal: No Clubbing, No Cyanosis, No Edema and Other (Left hip swollen and tense, erythematous. Tenderness to palpation on the left hip as well)
Skin: Warm, Dry and Other (Ecchymoses, below the level of hematoma, from previous fall); Negative Rash or Jaundice
Neuro: AO x 3, Nonfocal/Grossly Intact and Central Nerve's Intact; Negative Tremors
Data Reviewed
-
Labs: Labs Reviewed by me and Discussed with Patient
[2023-12-28 15:14] VITALS: BP 123/62
--- NOTE | 2023-12-28 15:30 | CM ---
CM met with pt and spouse bedside
Pt slept through assessment
They reside in a [address] with [address], broken into a few landings
They have a 1st floor set up with walk in shower
Pt has a cpap which is at home
Pt typically ambulates with WW or SPC and independence with ADLs
Spouse assist as needed
Prt has hx with [facility] and [facility] (spouse poor experience at [facility] and not interested in returning)
PCP- Berry Valderrama
Rx- Katty Hinojosa
PT/OT orders requested
Spouse is interested in [facility] if rehab recommended
Hopeful for return home with [facility], likely [facility]
Will await outcome of therapy evals
Discharge Disposition- home, likely with [facility], watch for higher needs
[2023-12-28] MEDS: DILAUDID 1 MG IV (15:53)
[2023-12-28] MEDS: LIORESAL 40 MG PO (18:18)
[2023-12-28 20:04] VITALS: BP 114/60
[2023-12-28] MEDS: ROXICODONE 5 MG PO (20:20)
[2023-12-28] MEDS: VALIUM 5 MG PO (20:20)
[2023-12-28] MEDS: TYLENOL 650 MG PO (21:23)
--- NOTE | 2023-12-28 21:30 | PTCARENOTE ---
pt temp 102.7- given prn tylenol, house provider notified.
[2023-12-28 23:11] VITALS: BP 110/60
[2023-12-29] MEDS: DILAUDID 1 MG IV ×3 (01:38→23:13)
[2023-12-29] MEDS: NSS 1000 IV ×3 (01:38→16:30)
[2023-12-29] MEDS: LIORESAL 30 MG PO ×2 (01:46→06:00)
[2023-12-29] MEDS: PROVIGIL 200 MG PO (06:01)
[2023-12-29 07:45] VITALS: BP 121/76
[2023-12-29] MEDS: PROTONIX 40 MG PO (08:20)
[2023-12-29] MEDS: MS CONTIN (EXTENDED RELEASE) 15 MG PO ×2 (08:20→20:46)
[2023-12-29] MEDS: COZAAR 50 MG PO ×2 (08:23→20:47)
[2023-12-29] MEDS: LAMICTAL 100 MG PO ×2 (08:23→20:46)
[2023-12-29] MEDS: FEOSOL 325 MG PO ×2 (08:23→20:47)
[2023-12-29] MEDS: ORETIC 25 MG PO (08:24)
--- NOTE | 2023-12-29 09:47 | W.PN.UPDATE ---
Update Note
Progress Note Update
Compared to yesterday less swelling and tenseness of the left thigh. Still some surrounding erythema, however. discussed with Dr. Ruiz. He is a little low grade this AM at 99.8. AM labs pending. Again, based on his history, exam, diagnostics,
and total clinical picture including the fact that he was on Plavix, I do believe this is likely hematoma. However, IR consultation could definitely be considered to attempt an aspiration of the subcutaneous tissues for lab analysis. continue
supportive measures and treatment per the primary team for now. Orthopaedics to follow along
[2023-12-29] MEDS: VITAMIN C 1000 MG PO (11:05)
[2023-12-29] MEDS: COREG 3.125 MG PO ×2 (11:05→23:13)
[2023-12-29] MEDS: PROVIGIL 100 MG PO (11:09)
[2023-12-29] MEDS: VITAMIN B-12 1000 MCG PO (11:17)
--- NOTE | 2023-12-29 12:01 | W.PN.HOSP.TC ---
Today's Communication/Plan
-
Monitor vital signs see plan
PT/OT
Hold HCTZ
Continue with antibiotics for now
Continue to monitor hematoma
Follow fever curve
Assessment / Plan
Assessment / Plan
#Hematoma of left hip
#H/O hip replacement
-Posttraumatic, multiple mechanical falls at home related to MS and orthotics
-Both falls that he mentions involved falling onto his left hip, to avoid head injury
-Significant swelling at the site of his left hip, skin is tense, per patient less tender to palpate
-Orthopedics following, no plan for intervention currently at this time. If symptoms do not improve then can ask IR to attempt an aspiration. Does have erythema around concerning for possible cellulitis
fever 8/10; check Ua. if continues to spike fever then will need further evaluation
Per orthopedics, looks more like hematoma. Will continue to monitor.
sepsis (fever, leukocytosis) on admission suspect secondary to hematoma
Plan
-Holding Plavix, will monitor clinically, consider IR for drainage if worsening
-Continue IV antibiotics, low threshold to DC
-Trend daily CBC, monitor for fevers
#Elevated LFTs -- mixed pattern
-Unclear etiology, transaminases elevated to 3 time UNL, ALP near 4 time
-Suspect this is related to hematoma with fall injury recently
-Transaminases may be a muscle origin, ALP related to bone injury
-Bilirubin level has been normal on both lab draws
Plan
-Monitor daily LFTs
-If continuing to worsen, order RUQ US
-Trend daily CBC
#Hypertension
-Home medications include losartan, HCTZ and amlodipine
-BP has been soft while here, possibly from analgesia and blood loss
-Hold amlodipine, HCTZ
#Chronic anemia
-Seems to have a component of TALYA, on twice daily iron supplementation
-Hemoglobin baseline appears to be around 11, was near 10 on admission due to acute blood loss from hematoma
-See above for more detail
#Seizure disorder
-Unclear etiology, may be related with multiple sclerosis diagnosis
-Home medications include lamotrigine, Nayzilam as needed
#Recent hospitalization for E. coli pneumonia and sepsis
-No signs of recurrence, hospital stay was C/B VDRF and CRISTELA with encephalopathy
-Also had a RUE superficial venous thrombus during that hospital stay
#Relapsing remitting multiple sclerosis
-Records here did not show any disease modifying therapies on pharmacy records
-Does seem to be complicated by spasticity, foot drop, possibly seizures
-No obvious signs of a flare, denies worsening weakness or new neurological symptoms
#Chronic pain with opioid dependence
#Baclofen pump placement with explantation 3 times
#H/O meningitis
-On multimodal pain regimen with morphine, oxycodone, baclofen
-Has required baclofen pump at times, did lead to development of meningitis
-No complaints of severe pain as of now
#H/O GIB
-Home medications include esomeprazole 40 mg daily
-Unclear etiology, suspect it was upper bleed due to PPI
#H/O bovine AVR
-Valve seems to function well per exam today
# S/P orthopedic procedures
-B/L knee and hip replacements, lumbar laminectomy
DVT prophylaxis: SCDs
Diet: Regular
CODE STATUS: Full code
General: No Apparent Distress, Comfortable and Appears Chronically Ill
HEENT: Normocephalic, Atraumatic and Moist Mucous Membranes
Respiratory: Clear to Auscultation and Non Labored Respirations
Cardiac: Regular Rhythm and S1/S2; Negative Murmur
GI: Soft, Nontender, Nondistended and Normal Bowel Sounds
Musculoskeletal: No Clubbing, No Cyanosis, No Edema and Other (Left hip swollen and tense, erythematous. Tenderness to palpation on the left hip as well)
Skin: Warm, Dry and Other (Ecchymoses, below the level of hematoma, from previous fall)
Neuro: AO x 3, Nonfocal/Grossly Intact and Central Nerve's Intact
Anticipated Discharge: > 48 hours
Subjective/Interval History
-
Date of Service: December 29, 2023
deneis nausea
Objective Data
-
Labs:
Laboratory Results
12/29/23
06:00
WBC Pending
Hgb Pending
Hct Pending
Plt Count Pending
Sodium Pending
Potassium Pending
Chloride Pending
Carbon Dioxide Pending
BUN Pending
Creatinine Pending
Glucose Pending
Calcium Pending
Vital Signs:
Vital Signs
Temp Pulse Resp BP Pulse Ox
99.8 F 83 17 121/67 92
12/29/23 07:45 12/29/23 11:05 12/29/23 07:45 12/29/23 11:05 12/29/23 11:56
I&O
12/28/23 12/29/23 12/30/23
06:59 06:59 06:59
Intake Total 1770 / 1770 4445 / 4445
Output Total 800 / 800 1225 / 1225
Balance 970 / 970 3220 / 3220
--- NOTE | 2023-12-29 13:45 | PHA.VAN.FU ---
Vancomycin Assessment / Plan
- Assessment
Renal Function: No New Labs Today (BMP not yet collected)
Vancomycin random level not able to be collected on first attempts
Still not collected by 1330 - level cancelled for today
- Dosing Plan
Adjust Regimen to: Vanc 750mg Q12H starting 12/29 0600
New Regimen Predicts: AUC (492), Peak (28.3), Trough (14.1)
Dosing Comments: give 1250mg x1 now
SCR & BUN elevated from baseline on admission
Labs not yet collected today but SCR & BUN were trending down yesterday
Will cautiously start scheduled dosing for today - CMP is ordered for tomorrow
- Monitoring Plan
No level(s) ordered at this time: follow renal function
- Follow Up
Pharmacy will continue to follow.
Vancomycin Follow UP
- -
Patient Age: 68
Patient Sex: Male
Vancomycin Day #: 3
Indication: Bone And Joint
Requesting Provider: Dr Patricia
Pertinent Antimicrobial Allergies:
cephalexin monohydrate [From Keflex] Allergy (Verified 12/27/23 14:05) Rash/tolerated Zosyn
Height / Weight:
Height 5 ft
Actual Weight 70.76 kg
Pertinent Past Medical History: MS
- Vital Signs / Lab Results
Temp Pulse Resp BP Pulse Ox
99.8 F 83 17 121/67 92
12/29/23 07:45 12/29/23 11:05 12/29/23 07:45 12/29/23 11:05 12/29/23 11:56
Lab Results - Hematology
12/27/23 12/28/23
14:29 06:08
WBC 14.5 H 12.3 H
Lab Results - Chemistry
12/27/23 12/28/23
14:29 06:08
BUN 44 H 37 H
Creatinine 1.0 0.8
Estimated Creat Clear 60 71
Albumin 3.6 2.8 L
12/27/23
15:03
Lactic Acid 1.0
Microbiology Results
12/27/23 22:32 MRSA Screen - Final
Nose No Methicillin Resistant Staphylococcus aureus isolated.
Therapeutic Drug Monitoring
Random Vancomycin Cancelled 12/29/23 06:00
[2023-12-29] MEDS: VANCOCIN 275 MG IV (14:45)
[2023-12-29 15:29] LABS: Urine Albumin Negative (Neg - Trace); Urine Bilirubin Negative (Negative); Urine Character Clear (Clear); Urine Color Yellow; Urine Glucose Negative (Negative); Urine Ketone Negative (Negative); Urine Leukocyte Negative (Negative); Urine Nitrite Negative (Negative); Urine Occult Blood Negative (Negative); Urine Urobilinogen Negative (Neg - 1+)
[2023-12-29 15:47] VITALS: BP 123/66
[2023-12-29 16:04] LABS: Blood Urea Nitrogen 22 mg/dl (9-20); Calcium 8.8 mg/dl (8.4-10.2); Carbon Dioxide 23 mmol/L (22-30); Chloride 105 mmol/L (98-107); Estimated Creatinine Clearance 71 ml/min; Glucose 93 mg/dl (70-99); Potassium 3.9 mmol/L (3.5-5.1); Sodium 136 mmol/L (135-145); eGFR > 60.00
[2023-12-29 16:35] LABS: % Basophils 0.2 % (0-2); % Eosinophils 0.8 % (0-6); % Immature Granulocytes 0.4 % (0-0.5); % Monocytes 9.8 % (1.7-9.3); % Neutrophils 80.8 % (42.2-75.2); Absolute Eosinophils 0.1 10^3/uL (0-0.7); Absolute Immature Granulocytes 0.1 10^3/uL (0-0.05); Absolute Lymphocytes 1.4 10^3/uL (1.2-3.4); Absolute Monocytes 1.7 10^3/uL (0.1-0.6); Absolute Neutrophils 13.8 10^3/uL (1.4-6.5); Hematocrit 36.8 % (39.0-52.0); Hemoglobin 12.3 g/dL (13.0-18.0); Mean Corp Hgb Conc. 33.4 g/dL (33.0-37.0); Mean Corpuscular Hgb 30.1 pg (27.0-31.0); Mean Corpuscular Volume 90.2 fL (80.0-94.0); Mean Platelet Volume 10.6 fL (7.4-10.4); Nucleated Red Blood Cells % 0 % (-); Platelet Count 169 10^3/uL (130-400); Red Blood Cell Count 4.08 10^6/uL (4.70-6.10); Red Cell Dist. Width 16.1 % (11.5-14.5); White Blood Cell Count 17.1 10^3/uL (4.8-10.8)
[2023-12-29] MEDS: TYLENOL 650 MG PO (17:21)
--- NOTE | 2023-12-29 18:07 | W.PN.UPDATE ---
Update Note
Progress Note Update
Called to see patient because concerned that left hip is worsening
Explained rationale for possibility of hematoma without infection (fever and elevated white count could certainly be a reaction to the hematoma) vs infection of collection/infection of hematoma noted on CAT scan--explained ortho's findings/notes
Selected Entries
12/29/23
15:47 12/29/23
17:21
Temp 102 F H
Pulse 79
Resp Rate 18
Blood pressure 123/66
SaO2 92
EXT: no cyanosis, clubbing--left hip with firm large round area and superimposed redness to left hip (asked nurse to outline both the redness and the firmness to see if progressing) possible cellulitis in addition along with bruise below area on
same leg--redness extending towards scrotum and up back
PLAN:
sepsis--meets criteria--hematoma vs infected collection/infected hematoma (pt has history of sepsis)
consult IR for aspiration and C&S
consult ID for opinion
trend WBC count
outline hip and follow for progression
cont vanco for now as will cover presumed gm positive bacteria
discussed with RN, material handler floorperson, and Dr. Ruiz
updated at bedside--time spent 37 minutes
[2023-12-29] MEDS: LIORESAL 40 MG PO (18:09)
--- NOTE | 2023-12-29 19:07 | PTCARENOTE ---
Pt's came out to this RN and brought me into the room with concerns regarding the plan for her . Dr. Ruiz had left for the day so this RN contacted cross-coverage MD. CC MD came to bedside to speak with the about the plan, ID was
consulted, tylenol given for a 102 fever which came down to 99.2, site was marked to note any traveling edema or redness, IR consulted for possible aspiration of hematoma. Family much more comfortable and at bedside with now. No new orders
at this time.
--- NOTE | 2023-12-29 23:20 | PTCARENOTE ---
Pt c/o increased L hip pain. L hip hard to touch, appears to have increased beyond outlined area from previous shift. +CMS. Contacted Ivonne JOHNSON, no new orders at this time. Medicated with prn dilaudid. call mendoza within reach.
[2023-12-29 23:28] VITALS: BP 139/75
[2023-12-30] VITALS (13 sets, daily range): BP systolic 90–145; BP diastolic 55–75; PULSE 77; O2SAT 96
[2023-12-30] MEDS: LIORESAL 30 MG PO ×2 (04:04→06:23)
[2023-12-30] MEDS: NSS 1000 IV (04:08)
[2023-12-30] MEDS: VANCOCIN 150 IV (06:20)
[2023-12-30] MEDS: PROVIGIL 200 MG PO (06:21)
--- NOTE | 2023-12-30 06:35 | W.PN.UPDATE ---
Update Note
Progress Note Update
Patient seen and evaluated by orthopedic surgery this morning. He is lying comfortably in bed, in no acute distress.
CBC notable for worsening leukocytosis; 17.1 12/29/2023. Temperature 99.2 this AM.
Currently on Vancomycin. Area of concern over lateral hip outlined. Mild TTP over lateral hip. No groin pain with ROM.
Plan to proceed with IR aspiration. Orthopedic surgery will continue to follow along.
[2023-12-30] MEDS: TYLENOL 650 MG PO ×2 (07:09→16:46)
[2023-12-30 08:19] LABS: % Basophils 0.2 % (0-2); % Eosinophils 1.4 % (0-6); % Immature Granulocytes 0.5 % (0-0.5); % Lymphocytes 10.4 % (20.5-51.1); % Monocytes 8.8 % (1.7-9.3); % Neutrophils 78.7 % (42.2-75.2); Absolute Eosinophils 0.2 10^3/uL (0-0.7); Absolute Immature Granulocytes 0.1 10^3/uL (0-0.05); Absolute Lymphocytes 1.1 10^3/uL (1.2-3.4); Absolute Neutrophils 8.6 10^3/uL (1.4-6.5); Hematocrit 30.4 % (39.0-52.0); Mean Corp Hgb Conc. 32.9 g/dL (33.0-37.0); Mean Corpuscular Hgb 29.8 pg (27.0-31.0); Mean Corpuscular Volume 90.5 fL (80.0-94.0); Mean Platelet Volume 10.8 fL (7.4-10.4); Nucleated Red Blood Cells % 0 % (-); Platelet Count 127 10^3/uL (130-400); Red Blood Cell Count 3.36 10^6/uL (4.70-6.10); Red Cell Dist. Width 16.2 % (11.5-14.5)
[2023-12-30] MEDS: FEOSOL 325 MG PO ×2 (08:42→20:19)
[2023-12-30] MEDS: PROTONIX 40 MG PO (08:42)
[2023-12-30] MEDS: LAMICTAL 100 MG PO ×2 (08:42→20:19)
[2023-12-30] MEDS: MS CONTIN (EXTENDED RELEASE) 15 MG PO ×2 (08:42→20:19)
[2023-12-30] MEDS: COZAAR PO (08:44)
[2023-12-30 08:54] LABS: ALT (SGPT) 115 U/L (0-50); AST (SGOT) 112 U/L (17-59); Albumin 2.6 g/dl (3.5-5.0); Alkaline Phosphatase 428 U/L (38-126); Blood Urea Nitrogen 18 mg/dl (9-20); Calcium 8.4 mg/dl (8.4-10.2); Carbon Dioxide 24 mmol/L (22-30); Chloride 106 mmol/L (98-107); Estimated Creatinine Clearance 94 ml/min; Glucose 116 mg/dl (70-99); Potassium 3.6 mmol/L (3.5-5.1); Sodium 134 mmol/L (135-145); Total Bilirubin 0.4 mg/dl (0.2-1.3); Total Protein 5.1 g/dl (6.3-8.2); eGFR > 60.00
--- NOTE | 2023-12-30 09:10 | PHA.VAN.FU ---
Vancomycin Assessment / Plan
- Assessment
Renal Function: Stable
WBC's are: Trending Down
- Dosing Plan
Continue: Vanc 750mg Q12H (first dose of new regimen started this AM)
- Monitoring Plan
No level(s) ordered at this time: consider repeat levels later this week
- Follow Up
Pharmacy will continue to follow.
Vancomycin Follow UP
- -
Patient Age: 68
Patient Sex: Male
Vancomycin Day #: 4
Indication: [facility]
Requesting Provider: Dr Patricia
Pertinent Antimicrobial Allergies:
cephalexin monohydrate [From Keflex] Allergy (Verified 12/27/23 14:05) Rash/tolerated Zosyn
Height / Weight:
Height 5 ft
Actual Weight 70.76 kg
Pertinent Past Medical History: MS
- Vital Signs / Lab Results
Temp Pulse Resp BP Pulse Ox
98.6 F 66 18 105/58 97
12/30/23 07:30 12/30/23 08:44 12/30/23 07:30 12/30/23 08:44 12/30/23 07:30
Lab Results - Hematology
12/27/23 12/28/23 12/29/23
14:29 06:08 15:31
WBC 14.5 H 12.3 H 17.1 H
12/30/23
07:42
WBC 11.0 H
Lab Results - Chemistry
12/27/23 12/28/23 12/29/23
14:29 06:08 15:31
BUN 44 H 37 H 22 H
Creatinine 1.0 0.8 0.8
Estimated Creat Clear 60 71 71
Albumin 3.6 2.8 L
12/30/23
07:42
BUN 18
Creatinine 0.6 L
Estimated Creat Clear 94
Albumin 2.6 L
12/27/23
15:03
Lactic Acid 1.0
Lab Results - Urine
12/29/23
15:00
Urine Nitrite (Reflex) Negative
Leukocyte Esterase Rfl Negative
Microbiology Results
12/27/23 22:32 MRSA Screen - Final
Nose No Methicillin Resistant Staphylococcus aureus isolated.
Therapeutic Drug Monitoring
Random Vancomycin Cancelled 12/29/23 06:00
--- NOTE | 2023-12-30 11:20 | W.PN.HOSP.TC ---
Today's Communication/Plan
-
Monitor vital signs see plan
IR for drainage
Follow cultures
Follow fever curve
Continue antibiotics
ID to evaluate
Discussed with spouse over the phone
Assessment / Plan
Assessment / Plan
#Hematoma of left hip
#H/O hip replacement
-Posttraumatic, multiple mechanical falls at home related to MS and orthotics
-Both falls that he mentions involved falling onto his left hip, to avoid head injury
-Significant swelling at the site of his left hip, skin is tense, per patient less tender to palpate
-Orthopedics following, no plan for intervention currently at this time. If symptoms do not improve then can ask IR to attempt an aspiration. Does have erythema around concerning for possible cellulitis
Per orthopedics looks more like hematoma
sepsis (fever, leukocytosis) on admission suspect secondary to hematoma
follow bcx; no cx was done on admission and patient was already on abx when cx was done
-Holding Plavix, IR consulted for drainage
Ortho following
Monitor leukocytosis, fever
UA without UTI, chest x-ray without pneumonia
ID evaluation
#Elevated LFTs -- mixed pattern
-Unclear etiology
-Suspect this is related to hematoma with fall injury recently
continue to monitor
-If continuing to worsen, order RUQ US
#Hypertension
-Home medications include losartan, HCTZ and amlodipine
-BP has been soft while here, possibly from analgesia and blood loss
-Hold amlodipine, HCTZ,losartan
#Acute on Chronic anemia
-Seems to have a component of TALYA, on twice daily iron supplementation
-Hemoglobin baseline appears to be around 11, was near 10 on admission due to acute blood loss from hematoma
-See above for more detail
Thrombocytopenia
Monitor
Hyponatremia
monitor
#Seizure disorder
-Unclear etiology, may be related with multiple sclerosis diagnosis
-Home medications include lamotrigine, Nayzilam as needed
#Recent hospitalization for E. coli pneumonia and sepsis
-No signs of recurrence, hospital stay was C/B VDRF and CRISTELA with encephalopathy
-Also had a RUE superficial venous thrombus during that hospital stay
#Relapsing remitting multiple sclerosis
-Records here did not show any disease modifying therapies on pharmacy records
-Does seem to be complicated by spasticity, foot drop, possibly seizures
-No obvious signs of a flare, denies worsening weakness or new neurological symptoms
#Chronic pain with opioid dependence
#Baclofen pump placement with explantation 3 times
#H/O meningitis
-On multimodal pain regimen with morphine, oxycodone, baclofen
-Has required baclofen pump at times, did lead to development of meningitis
-No complaints of severe pain as of now
#H/O GIB
-Home medications include esomeprazole 40 mg daily
-Unclear etiology, suspect it was upper bleed due to PPI
#H/O bovine AVR
-Valve seems to function well per exam today
# S/P orthopedic procedures
-B/L knee and hip replacements, lumbar laminectomy
DVT prophylaxis: SCDs
CODE STATUS: Full code
General: No Apparent Distress, Comfortable and Appears Chronically Ill
HEENT: Normocephalic, Atraumatic and Moist Mucous Membranes
Respiratory: Clear to Auscultation and Non Labored Respirations
Cardiac: Regular Rhythm and S1/S2; Negative Murmur
GI: Soft, Nontender, Nondistended and Normal Bowel Sounds
Musculoskeletal: No Clubbing, No Cyanosis, No Edema and Other (Left hip swollen and tense, erythematous. Tenderness to palpation on the left hip as well)
Skin: Warm, Dry and Other (Ecchymoses, below the level of hematoma, from previous fall)
Neuro: AO x 3, Nonfocal/Grossly Intact and Central Nerve's Intact
I spent a total of 52 minutes with the patient or on the floor. More than 50% of this time involved counseling and coordination of care.
Anticipated Discharge: > 48 hours
Subjective/Interval History
-
Date of Service: December 30, 2023
denies pain
Objective Data
-
Labs:
Laboratory Results
12/30/23
07:42
WBC 11.0 H
Hgb 10.0 L
Hct 30.4 L
Plt Count 127 L D
Sodium 134 L
Potassium 3.6
Chloride 106
Carbon Dioxide 24
BUN 18
Creatinine 0.6 L
Glucose 116 H
Calcium 8.4
Total Bilirubin 0.4
AST 112 H
ALT 115 H
Alkaline Phosphatase 428 H
Vital Signs:
Vital Signs
Temp Pulse Resp BP Pulse Ox
98.6 F 66 18 105/58 97
12/30/23 07:30 12/30/23 08:44 12/30/23 07:30 12/30/23 08:44 12/30/23 07:30
I&O
12/29/23 12/30/23 12/31/23
06:59 06:59 06:59
Intake Total 4445 / 4445 3600 / 3600
Output Total 1225 / 1225 1775 / 1775
Balance 3220 / 3220 1825 / 1825
--- NOTE | 2023-12-30 11:46 | CON.ID ---
Consultation
-
Date/Time Consultation Requested: December 29, 20231813
Date/Time Consultation Performed: December 30, 2023 1150
Requesting Provider: Dr. Bonifacio Ruiz
Performing Provider: Dr. Ana Peraza
Reason for Consultation: Pelvic collection - hematoma versus abscess
Chief Complaint / Past History
History of Present Illness
He is a 68-year-old male with multiple sclerosis, seizure disorder, chronic pain, bioprosthetic aortic valve replacement, history of baclofen pump complicated by spinal fluid leak with E. coli and Pseudomonas meningitis status post pump removal at
[place] December 2022 who presented to the hospital December 26 due to pain, swelling, redness over the left thigh/hip. He states he fell on his left side outside on [employer] concrete 2 weeks ago. He developed bruises. He gain fell on his left side 1
week later on concrete. No wounds or abrasions. He was wearing long pants. This time, developed worsening left thigh/hip swelling, redness, and pain. No fever at home. In the ER he was febrile 100.8 and escalated to 102.7. White count was
14.5. CAT scan showed left pelvis subcutaneous collection 8 x 3 x 10 cm representing hematoma. Vancomycin started on admission. Conservative management during this time. Yesterday he had another episode of fever up to 102. Also to the left
thigh redness progressed outside the marked line. IR was consulted for aspiration. Today, the pain is better than previous. No chills/sweats. No other complaints.
Past History
Additional Past Medical History:
Multiple sclerosis, not on tx
CVA on Plavix
Seizure disorder
Pseudogout
Chronic pain
Baclofen pump SSTI 09/2022 s/p removal 10/2022.
Baclofen pump placement 12/2022 complicated by spinal leak with E. coli+Pseudomonas meningitis s/p pump removal at [place]
bioprosthetic aortic valve replacement
History of cervicothoracic epidural abscess MSSA in 2010
History of C. difficile
Cholecystectomy
Lumbar laminectomy
Toe amputation
Bilateral THR
Bilateral TKR
Gastric bypass
Allergy History:
CHANDLER Inhibitors Allergy (Verified 12/27/23 14:05)
COUGH
cephalexin monohydrate [From Keflex] Allergy (Verified 12/27/23 14:05)
Rash/tolerated Zosyn
quinapril HCl [From Accupril] Allergy (Verified 12/27/23 14:05)
COUGH--CHANDLRE INHIBITORS
Medications Reviewed: Yes
Current Antibiotics:
Vancomycin d3
Social History
Tobacco: Former Smoker
Alcohol: None
Drug: None and Marijuana (Medical)
Personal:
Living: With Family
Family History
Family History: Not Pertinent
Review of Systems
Review of Systems
General: Negative Change in Appetite
HEENT: Negative Sinus Problems or Pharyngitis
Cardiovascular: Negative Chest Pain or Dyspnea
Respiratory: Negative Dyspnea or Cough
Gasteroenterology: Other (no diarrhea); Negative Nausea or Vomiting
Endocrine: Negative Weakness
Neurological: Negative Dizziness
All systems: All other systems were reviewed and were negative
Vital Signs
Temp Pulse Resp BP Pulse Ox
98.6 F 66 18 105/58 97
12/30/23 07:30 12/30/23 08:44 12/30/23 07:30 12/30/23 08:44 12/30/23 07:30
Selected Entries
12/29/23
17:21
Temp 102 F H
Physical Exam
Physical Exam
Constitutional: No Acute Distress and Comfortable
Eyes: No Conjunctival Hemorrhage and Sclera Anicteric
Cardiovascular: Regular Rate and S1/S2
Pulmonary: Clear
Gastrointestinal: Soft, Non Tender and Non Distended
Extremities: Other (Left upper thigh: large area of firm induration with pink erythema extending to hip, to groin, and medial thigh. )
Neurological: AO x 3
Lab / Diagnostic Study Results
12/30/23 07:42
12/30/23 07:42
Abs Immat Gran (auto) 0.1 10^3/uL (0-0.05) H 12/30/23 07:42
Absolute Neuts (auto) 8.6 10^3/uL (1.4-6.5) H 12/30/23 07:42
Absolute Lymphs (auto) 1.1 10^3/uL (1.2-3.4) L 12/30/23 07:42
Absolute Monos (auto) 1.0 10^3/uL (0.1-0.6) H 12/30/23 07:42
Absolute Basos (auto) 0.0 10^3/uL (0-0.2) 12/30/23 07:42
Immature Gran % 0.5 % (0-0.5) 12/30/23 07:42
Neutrophils % 78.7 % (42.2-75.2) H 12/30/23 07:42
Lymphocytes % 10.4 % (20.5-51.1) L 12/30/23 07:42
Monocytes % 8.8 % (1.7-9.3) 12/30/23 07:42
Eosinophils % 1.4 % (0-6) 12/30/23 07:42
Basophils % 0.2 % (0-2) 12/30/23 07:42
Lactic Acid 1.0 mmol/L (0.7-2.0) 12/27/23 15:03
Microbiology Results
Micro:
12/29/23 15:31 Blood Culture - Pending
Blood/Venous
12/27/23 22:32 MRSA Screen - Final
Nose No Methicillin Resistant Staphylococcus aureus isolated.
12/27/23 CT LE: No acute osseous fracture identified. No CT evidence to suggest osteomyelitis. 8 x 3 x 10 cm focal collection within the deep subcutaneous tissues in the left lateral pelvic region. Given the history of fall/trauma, most likely
representing hematoma formation. There is associated diffuse linear and reticular soft tissue stranding of the subcutaneous fat and relatively diffuse skin thickening noted, consistent with soft tissue swelling/edema. No subcutaneous emphysema. No
radiopaque foreign body.
12/29/23 CXR: Bibasilar atelectasis and/or scarring. No active pulmonary process.
Assessment / Plan
# Large left thigh soft tissue hematoma post fall x 2
# Fever/leukocytosis due to hematoma.
- For IR aspiration of hematoma to rule out infection.
- DC Vancomycin.
- Apply ice.
-Trend wbc/temps.
--- NOTE | 2023-12-30 11:54 | CM ---
Reviewed the chart notes and spoke with the patient at the bedside. The patient anticipates going to IR sometime today for aspiration of hematoma. ID consult pending. CM continues to be available to patient/family and is monitoring medical plan
for needs at discharge.
Plan: Discharge plans will depend on the patient's progress.
[2023-12-30] MEDS: COREG PO (12:07)
[2023-12-30] MEDS: PROVIGIL 100 MG PO (12:08)
[2023-12-30] MEDS: VITAMIN B-12 1000 MCG PO (12:08)
[2023-12-30] MEDS: VITAMIN C 1000 MG PO (12:08)
[2023-12-30] MEDS: DILAUDID 1 MG IV ×3 (14:27→21:47)
--- NOTE | 2023-12-30 16:15 | W.PN.UPDATE ---
Update Note
Progress Note Update
- US guided needle aspiration of L hip collection yielded purulent fluid
- Proceeded to place 8.5F drain with removal of 75mL purulent fluid.
- Drain orders placed.
[2023-12-30] MEDS: ZOSYN 50 IV (18:35)
[2023-12-30 19:04] LABS: Body Fluid WBC 15840 /CUMM
[2023-12-30 19:05] LABS: Body Fluid Second Tech EYM
[2023-12-30] MEDS: LIORESAL 40 MG PO (20:18)
[2023-12-30 21:24] LABS: Body Fluid Granulocytes 99 %; Body Fluid Mesothelials 1 %
[2023-12-31] MEDS: ZOSYN 50 IV ×3 (00:27→12:48)
[2023-12-31] MEDS: COREG PO ×2 (00:30→12:47)
[2023-12-31] MEDS: DILAUDID 1 MG IV ×3 (00:49→12:38)
[2023-12-31] MEDS: LIORESAL 30 MG PO ×2 (03:01→06:21)
[2023-12-31] MEDS: PROVIGIL 200 MG PO (06:21)
[2023-12-31 07:01] LABS: % Basophils 0.2 % (0-2); % Eosinophils 1.6 % (0-6); % Immature Granulocytes 0.7 % (0-0.5); % Lymphocytes 13.5 % (20.5-51.1); % Monocytes 8.1 % (1.7-9.3); % Neutrophils 75.9 % (42.2-75.2); Absolute Eosinophils 0.2 10^3/uL (0-0.7); Absolute Immature Granulocytes 0.1 10^3/uL (0-0.05); Absolute Lymphocytes 1.4 10^3/uL (1.2-3.4); Absolute Monocytes 0.9 10^3/uL (0.1-0.6); Absolute Neutrophils 8.1 10^3/uL (1.4-6.5); Hematocrit 28.2 % (39.0-52.0); Hemoglobin 9.2 g/dL (13.0-18.0); Mean Corp Hgb Conc. 32.6 g/dL (33.0-37.0); Mean Platelet Volume 11.1 fL (7.4-10.4); Nucleated Red Blood Cells % 0 % (-); Platelet Count 138 10^3/uL (130-400); Red Blood Cell Count 3.17 10^6/uL (4.70-6.10); White Blood Cell Count 10.6 10^3/uL (4.8-10.8)
[2023-12-31 07:30] LABS: ALT (SGPT) 69 U/L (0-50); AST (SGOT) 33 U/L (17-59); Albumin 2.5 g/dl (3.5-5.0); Alkaline Phosphatase 314 U/L (38-126); Blood Urea Nitrogen 21 mg/dl (9-20); Calcium 8.2 mg/dl (8.4-10.2); Carbon Dioxide 26 mmol/L (22-30); Chloride 108 mmol/L (98-107); Estimated Creatinine Clearance 81 ml/min; Glucose 94 mg/dl (70-99); Potassium 3.8 mmol/L (3.5-5.1); Sodium 135 mmol/L (135-145); Total Bilirubin 0.3 mg/dl (0.2-1.3); Total Protein 4.9 g/dl (6.3-8.2); eGFR > 60.00
[2023-12-31 07:50] VITALS: BP 116/66
[2023-12-31] MEDS: PROTONIX 40 MG PO (08:50)
[2023-12-31] MEDS: LAMICTAL 100 MG PO (08:50)
[2023-12-31] MEDS: MS CONTIN (EXTENDED RELEASE) 15 MG PO (08:50)
[2023-12-31] MEDS: FEOSOL 325 MG PO (08:51)
--- NOTE | 2023-12-31 08:55 | W.PN.UPDATE ---
Update Note
Progress Note Update
Patient was seen late on 30 December 2023 after IR guided aspiration. Discussed with patient and spouse were present with intent for consent for left thigh irrigation debridement with Dr. Thomas posted for 01 January 2024. It was noted that the fluid
accumulation does seem directly underlying his anterior approach incision with his history of left total hip arthroplasty utilizing anterior approach with Dr. Zepeda at [facility].
We did discuss the consideration that there may be a sinus tract or connection between the fluid accumulation in the total joint replacement. We discussed the differences in treatment given the presence of hardware with periprosthetic joint
infections versus soft tissue accumulation. This was further discussed with the attending. We are tentative for the OR for 31 December 2023 and consent was signed however our staff has reached out towards [place] in regards to transfer for
preparation if the infection reaches into the total hip for stage I relative to periprosthetic joint infection at the discretion of the operating surgeon. Given the lack of capabilities for anterior total approach at our facility and her primary
surgeon is active and local transfer was recommended to [facility]
Of note discussion yesterday the spouse reported the patient reported some prodromal discomfort about the left hip and is unsure if this is relative to the fall; this was denied by the patient however the spouse reports other family members noted
this as well. Unclear if there was antecedent hip pain prior to the fall
[2023-12-31] MEDS: VALIUM 5 MG PO (10:58)
--- NOTE | 2023-12-31 11:01 | W.PN.HOSP.TC ---
Addendum entered and electronically signed by Bonifacio Ruiz MD 12/31/23 13:09:
Patient is accepted under orthopedic Dr. Zepeda. Spoke with nursing supervisor component assembler at [facility]. Transfer form signed. Spouse updated at bedside.
Time of discharge 39 minutes
Original Note:
Today's Communication/Plan
-
Monitor vital signs
see plan
Awaiting reply from [facility] regarding transfer patient to [place]
Continue with antibiotics, monitor drain
Monitor LFTs
Continue to hold BP meds
Plavix on hold
Discussed with spouse over the phone
Assessment / Plan
Assessment / Plan
#Hematoma of left hip
#H/O hip replacement
-Posttraumatic, multiple mechanical falls at home related to MS and orthotics
-Both falls that he mentions involved falling onto his left hip, to avoid head injury
-Significant swelling at the site of his left hip, skin is tense, per patient less tender to palpate
-Orthopedics following, no plan for intervention currently at this time. If symptoms do not improve then can ask IR to attempt an aspiration. Does have erythema around concerning for possible cellulitis
Per orthopedics looks more like hematoma
sepsis (fever, leukocytosis) on admission suspect secondary to hematoma/abscess
follow bcx NGTD; no cx was done on admission and patient was already on abx when cx was done
-Holding Plavix, s/p IR drainage 12/29, Gram stain with gram-negative rods. Now on Zosyn. ID following. Spoke with orthopedics who discussed multiple treatment management however appears to have fluid accumulation does seem directly underlying his
anterior approach incision with his history of left total hip arthroplasty which was done at [facility] by Dr. Zepeda. Per orthopedics there is lack of capability for anterior total approach a dose on hospital and our orthopedics
recommended patient to be transferred to [facility].
Ortho following
Monitor leukocytosis, fever
UA without UTI, chest x-ray without pneumonia
ID evaluation
#Elevated LFTs -- mixed pattern
-Unclear etiology
-Suspect this is related to hematoma with fall injury recently
continue to monitor
-If continuing to worsen, order RUQ US
#Hypertension
-Home medications include losartan, HCTZ and amlodipine
-BP has been soft while here, possibly from analgesia and blood loss
-Hold amlodipine, HCTZ,losartan
#Acute on Chronic anemia
-Seems to have a component of TALYA, on twice daily iron supplementation
-Hemoglobin baseline appears to be around 11, was near 10 on admission due to acute blood loss from hematoma
-See above for more detail
Thrombocytopenia
Monitor
Hyponatremia
monitor
#Seizure disorder
-Unclear etiology, may be related with multiple sclerosis diagnosis
-Home medications include lamotrigine, Nayzilam as needed
#Recent hospitalization for E. coli pneumonia and sepsis
-No signs of recurrence, hospital stay was C/B VDRF and CRISTELA with encephalopathy
-Also had a RUE superficial venous thrombus during that hospital stay
#Relapsing remitting multiple sclerosis
-Records here did not show any disease modifying therapies on pharmacy records
-Does seem to be complicated by spasticity, foot drop, possibly seizures
-No obvious signs of a flare, denies worsening weakness or new neurological symptoms
#Chronic pain with opioid dependence
#Baclofen pump placement with explantation 3 times
#H/O meningitis
-On multimodal pain regimen with morphine, oxycodone, baclofen
-Has required baclofen pump at times, did lead to development of meningitis
-No complaints of severe pain as of now
#H/O GIB
-Home medications include esomeprazole 40 mg daily
-Unclear etiology, suspect it was upper bleed due to PPI
#H/O bovine AVR
-Valve seems to function well per exam today
# S/P orthopedic procedures
-B/L knee and hip replacements, lumbar laminectomy
DVT prophylaxis: SCDs
CODE STATUS: Full code
General: No Apparent Distress, Comfortable and Appears Chronically Ill
HEENT: Normocephalic, Atraumatic and Moist Mucous Membranes
Respiratory: Clear to Auscultation and Non Labored Respirations
Cardiac: Regular Rhythm and S1/S2; Negative Murmur
GI: Soft, Nontender, Nondistended and Normal Bowel Sounds
Musculoskeletal: No Clubbing, No Cyanosis, No Edema and Other (Left hip swollen and tense, erythematous. Tenderness to palpation on the left hip as well)
Skin: Warm, Dry and Other (Ecchymoses, below the level of hematoma, from previous fall)
Neuro: AO x 3, Nonfocal/Grossly Intact and Central Nerve's Intact
I spent a total of 53 minutes with the patient or on the floor. More than 50% of this time involved counseling and coordination of care.
Anticipated Discharge: Today
Subjective/Interval History
-
Date of Service: December 31, 2023
denies pain
Objective Data
-
Labs:
Laboratory Results
12/31/23
05:52
WBC 10.6
Hgb 9.2 L
Hct 28.2 L
Plt Count 138
Sodium 135
Potassium 3.8
Chloride 108 H
Carbon Dioxide 26
BUN 21 H
Creatinine 0.7
Glucose 94
Calcium 8.2 L
Total Bilirubin 0.3
AST 33
ALT 69 H
Alkaline Phosphatase 314 H
Vital Signs:
Vital Signs
Temp Pulse Resp BP Pulse Ox
98.2 F 64 16 116/66 97
12/31/23 07:50 12/31/23 07:50 12/31/23 07:50 12/31/23 07:50 12/31/23 07:50
I&O
12/30/23 12/31/23 01/01/24
06:59 06:59 06:59
Intake Total 3600 / 3600 1420 / 1420
Output Total 1775 / 1775 1970 / 1969
Balance 1825 / 1825 -550 / -550
--- NOTE | 2023-12-31 11:03 | W.PN.ID1 ---
Date of Service
Date of Service: December 31, 2023
Today's Communication
Continue Zosyn pending final cx data.
Assessment / Plan
# Left hip PJI, left thigh abscess (probable sinus tract)
# Fever
# Leukocytosis resolved
# Allergy to cephalexin (rash), tolerated PCN
# recent falls x 2
- 12/30/23 s/p IR arthrogram, aspiration of left hip with 75 cc purulent fluid, drain placed.
Synovial fluid 15,840 wbc, 99% granulocytes
Fluid gram stain GNR, cx pending.
- s/p 3d vancomycin prior to hip aspiration -> DC'd
- Continue Zosyn d1 pending cx data.
- Per ortho, transfer to [facility] for surgical intervention.
- Trend temps.
# Conditions CLASSROOM COORDINATOR
Multiple sclerosis, not on tx
CVA on Plavix
Seizure disorder
Pseudogout
Chronic pain
ESBL-Ecoli (11/11/23)
Baclofen pump SSTI 09/2022 s/p removal 10/2022.
Baclofen pump placement 12/2022 complicated by spinal leak with E. coli+Pseudomonas meningitis s/p pump removal at [facility]
bioprosthetic aortic valve replacement
History of cervicothoracic epidural abscess MSSA in 2010
Remote history of C. difficile
Cholecystectomy
Lumbar laminectomy
Toe amputation
Bilateral THR
Bilateral TKR
Gastric bypass
Chief Complaint
-: Fever and Other
Subjective / Review of Systems
Upset about left hip infection. Less pain.
Vital Signs / Physical Exam
Vital Signs
Vital Signs
Temp Pulse Resp BP Pulse Ox
98.2 F 64 16 116/66 97
12/31/23 07:50 12/31/23 07:50 12/31/23 07:50 12/31/23 07:50 12/31/23 07:50
Selected Entries
12/30/23
16:45 12/30/23
17:00
Temp 102.0 F H 102.0 F H
Physical Exam
Constitutional: No Acute Distress
Cardiovascular: Regular Rate and S1/S2
Pulmonary: Clear
Gastrointestinal: Soft, Non Tender and Non Distended
Musculoskeletal: Other (left hip + induration erythema extending to upper thigh with large induration, erythema extending to groin and medial thigh. JOANNA drain cloudy bloody fluid. )
Neurological: AO x 3
Objective Data
Lab Data
Lab Results
12/31/23 05:52
12/31/23 05:52
Estimated Creat Clear 81 ml/min 12/31/23 05:52
Lactic Acid 1.0 mmol/L (0.7-2.0) 12/27/23 15:03
Total Bilirubin 0.3 mg/dl (0.2-1.3) 12/31/23 05:52
AST 33 U/L (17-59) 12/31/23 05:52
ALT 69 U/L (0-50) H 12/31/23 05:52
Alkaline Phosphatase 314 U/L (38-126) H 12/31/23 05:52
Most recent labs reviewed.
Micro Results:
12/30/23 16:05 Wound Culture - Pending
Abscess Gram Stain - few GNR
12/29/23 15:31 Blood Culture - Preliminary
Blood/Venous No Growth in 24 hours- Final report to follow
12/27/23 22:32 MRSA Screen - Final
Nose No Methicillin Resistant Staphylococcus aureus isolated.
12/27/23 CT LE: No acute osseous fracture identified. No CT evidence to suggest osteomyelitis. 8 x 3 x 10 cm focal collection within the deep subcutaneous tissues in the left lateral pelvic region. Given the history of fall/trauma, most likely
representing hematoma formation. There is associated diffuse linear and reticular soft tissue stranding of the subcutaneous fat and relatively diffuse skin thickening noted, consistent with soft tissue swelling/edema. No subcutaneous emphysema. No
radiopaque foreign body.
12/29/23 CXR: Bibasilar atelectasis and/or scarring. No active pulmonary process.
Care Review
Plan reviewed with: Physician (Dr. Ruiz)
[2023-12-31 12:30] VITALS: BP 112/62
--- NOTE | 2023-12-31 12:33 | CM ---
Addendum entered by Olga Cates RN 12/31/23 14:00:
Medical necessity and transport forms on chart.
Original Note:
Reviewed the chart notes. Patient for transfer to [facility] for surgical intervention when a bed becomes available. CM continues to be available to patient/family and is monitoring medical plan for needs at discharge.
Plan: Transfer to [facility] when a bed becomes available.
[2023-12-31] MEDS: PROVIGIL 100 MG PO (12:47)
[2023-12-31] MEDS: VITAMIN C 1000 MG PO (12:47)
[2023-12-31] MEDS: VITAMIN B-12 PO (12:48)
--- NOTE | 2023-12-31 13:13 | W.DCSUMMARY ---
Discharge Summary
Discharge Data
Date of Admission: 12/27/23
Date of Discharge: 12/31/23
-
Pending Results: No
Hospital Course
Discharge Diagnosis:
1. Left thigh hematoma with possible abscess with suspected underlying periprostatic infection
Hospital Course:
68-year-old male with history of hip replacement, hypertension, anemia of chronic disease, seizure disorder, relapsing remitting multiple sclerosis, chronic pain with opioid dependence on baclofen pump, bovine AVR, knee replacement, lumbar
laminectomy came to the hospital after a fall with left hip hematoma. Patient was seen by orthopedics throughout hospitalization. Patient did had few episodes of fever which was concerning so asked interventional radiology for drainage of hip
focal collection that was noted on CT scan. Gram stain started growing gram-negative rods. Patient was then placed on Zosyn. Patient was also seen by infectious disease. [place] [facility] discussed multiple treatment management however it
appeared that patient fluid accumulation does seem directly underlying his anterior approach incision with his history of left total hip arthroplasty that was done at [facility] by Dr. Zepeda. Given these findings orthopedics dosed on
recommended patient to be transferred to [facility]. Dr. Zepeda accepted the patient to come to [facility] for potential surgery. He also had periods of hypotension for which his blood pressure medications was held. Once patient
had a bed at [facility] he was then transferred.
Discharge Plan
-
Patient Disposition: Acute Care Hospital
Discharge Orders:
Discharge Patient (As Directed); Ordered 12/31/23
Ordered By: Bonifacio Ruiz
Discharge Date and Time
Discharge Date/Time: 12/31/23 15:26
Print Language: ESTONIAN
[2023-12-31 14:00] VITALS: BP 112/61
== END 2023-12-31 15:26 | disposition short-term general hospital (02) | DRG 559 ==
LOC: 2 NORTH 19:55
PROVIDERS: Internal Medicine; Physician Assistant Medical; Radiology Diagnostic Radiology; Student in an Organized Health Care Education/Training Program; ADMITTING PHYSICIAN Internal Medicine; ATTENDING PHYSICIAN Internal Medicine; CONSULT PHYSICIAN Internal Medicine Infectious Disease; CONSULT PHYSICIAN Specialist; EMERGENCY PHYSICIAN Emergency Medicine; FAMILY PHYSICIAN Family Medicine
PROC: 0S9B30Z Drainage of Left Hip Joint with Drainage Device, Percutaneous Approach (ICD-10-PCS; 2023-12-30)
DX: T84.52XA Infection and inflammatory reaction due to internal left hip prosthesis, initial encounter (principal); A41.9 Sepsis, unspecified organism; J98.11 Atelectasis; L02.416 Cutaneous abscess of left lower limb; F11.20 Opioid dependence, uncomplicated; D62 Acute posthemorrhagic anemia; E87.1 Hypo-osmolality and hyponatremia; L03.116 Cellulitis of left lower limb; Z11.52 Encounter for screening for COVID-19; G35 Multiple sclerosis; Z86.73 Personal history of transient ischemic attack (TIA), and cerebral infarction without residual deficits; S70.12XA Contusion of left thigh, initial encounter; W19.XXXA Unspecified fall, initial encounter
CPT/HCPCS: 20610; 71046; 73700; 76942; 80048; 80053; 80202; 81003; 83605; 85025; 85027; 87040; 87070; 87205; 87811; 89051; 96365; 96366; 96375; 97163; 97165; 99285

== ENCOUNTER 2024-12-27 18:18 | Emergency (ER) | payer MEDICARE, OTHER, SELFPAY ==
[2024-12-27 18:19] VITALS: BP 124/76
--- NOTE | 2024-12-27 18:30 | ED.GENMED ---
ED Provider Triage
<Elin Do PA-C - Last Filed: 12/27/24 18:31>
-
Patient seen by provider in Triage?: Seen in Triage
Attestation: A medical screening examination has been initiated by a qualified medical provider. Based on the assessment performed at this time, it has been determined that an emergent medical condition may exist and the patient has been informed
that further medical evaluation and possible additional diagnostic testing may be needed.
HPI: 69yoM here with stan colored stool and R flank pain x 3 weeks. Sent in by GI. Denies urinary symptoms. Hx of gastric bypass in 1999.
GENERAL: Alert , in no apparent distress
EYE: No visual abnormalities.
NECK: Trachea midline
ENT: No visible abnormalities.
LUNGS: No acute respiratory distress
NEUROLOGICAL: Alert and oriented
SKIN: Skin intact. No visible changes.
MUSCULOSKELETAL: Moving extremities normally
PSYCH: Normal and appropriate interaction.
This is a medical evaluation conducted in person to initiate diagnostic evaluation and provide initial therapeutics. Please see further documentation by the treating clinician.
Abdominal labs, UA, and CT abdomen with PO/IV contrast ordered.
History of Present Illness
<Elin Do PA-C - Last Filed: 12/27/24 18:31>
General
Chief Complaint: Abdominal Symptoms
Time Seen by Provider: 12/27/24 23:05
<Efrem Diaz Jr., PA-C - Last Filed: 12/28/24 00:50>
General
Source: patient
Exam Limitations: none
Nursing documentation reviewed up to this point in time: agreed with
History of Present Illness
History of Present Illness:
69-year-old male patient with history of MS, heart disease, previous gastric bypass GI issues presenting to the emergency department today with concerns of 3 weeks of stan colored stool with some vague abdominal pain associated. Called his GI
doctor told him to go to the ER today. GI Dr. Dr. Walp. No fever no chest pain
Past History
<Elin Do PA-C - Last Filed: 12/27/24 18:31>
Past History
ED Past Medical History: CVA, GERD, HTN, Other (Multiple sclerosis; previous GI bleeds, Aortic insufficiency, mitral valve prolapse, rheumatic fever, nephrolithiasis), Other (Sepsis, cervicothoracic epidural abscess (MSSA) July 2010, C. difficile,
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
ED Past Surgical History: Cardiac (Aortic valve replacement 2016), Cholecystectomy, Orthopedic (Lumbar laminectomy, right middle toe amputation, bilateral hip replacements x2, bilateral knee replacements x2, right wrist surgery 2008) and Other
(Epidural abscess drainage August 2010 at [facility]; baclofen pump implantation; gastric bypass)
Social History
Tobacco: Former smoker
Alcohol: None
Drug: None
Personal:
Living: with family
Employment: Employed
Family History
Family History: Other (Reviewed and non-contributory)
Review of Systems
<Efrem Diaz Jr., PA-C - Last Filed: 12/28/24 00:50>
Review of Systems
Allergies reviewed?: Yes
All Other Systems: ROS reviewed and negative except as documented in HPI and ROS
Phy Exam
<Efrem Diaz Jr., PA-C - Last Filed: 12/28/24 00:50>
Physical Exam
Physical Exam:
GENERAL: Alert , in no apparent distress
EYE: pupils equal and reactive
NECK: Supple, no significant adenopathy.
ENT: o/p clr, mmm.
CARDIAC: Regular rate and rhythm .
LUNGS: Clear breath sounds bilaterally, no acute respiratory distress, no wheezes/rales/rhonchi
ABDOMEN: Soft, without focal tenderness, no r/g, no cvat
NEUROLOGICAL: Alert and oriented, no focal neuro deficits
SKIN: Warm and dry, skin intact.
MUSCULOSKELETAL: No edema, well perfused.
PSYCH: Normal and appropriate interaction.
Course
<Elin Do PA-C - Last Filed: 12/27/24 18:31>
Orders/Labs/Results
Orders:
Orders
12/27/24 18:29
Iohexol [Omnipaque] See Protocol PO NOW STA
12/27/24 18:30
CT Abd/pel W Iv And Oral Contr Urgent
Comment:
Reason For Exam: R flank pain, stan colored stool
12/27/24 18:39
Urinalysis Reflex To Culture Urgent
Date Specimen was Collected: 12/27/24
Time Specimen was Collected: 18:24
Urine Microscopic Reflex Cult Urgent
Urine Culture Urgent
CHRISTINA Source: U
Specimen Description:
Date Specimen was Collected: 12/27/24
Time Specimen was Collected: 18:24
12/27/24 18:44
Complete Blood Count/With Diff Urgent
Comprehensive Metabolic Panel Urgent
Lipase Urgent
Abnormal Lab Results
12/27/24 12/27/24
18:39 18:44
RBC 3.89 L 10^6/uL
(4.70-6.10)
Hgb 9.4 L g/dL
(13.0-18.0)
Hct 31.3 L %
(39.0-52.0)
MCH 24.2 L pg
(27.0-31.0)
MCHC 30.0 L g/dL
(33.0-37.0)
RDW 18.0 H %
(11.5-14.5)
MPV 10.6 H fL
(7.4-10.4)
Monocytes % 11.4 H %
(1.7-9.3)
Carbon Dioxide 31 H mmol/L
(22-30)
BUN 24 H mg/dl
(9-20)
Alkaline Phosphatase 209 H U/L
(38-126)
Leukocyte Esterase Rfl 1+ A
(Negative)
Urine Bacteria (Reflex) Few A
(Negative)
12/27/24 18:44
12/27/24 18:44
Vital Signs
Initial and Last Documented VS:
Initial Vital Signs
Temp Pulse Resp BP Pulse Ox
97.8 F 80 18 124/76 95
12/27/24 18:19 12/27/24 18:19 12/27/24 18:19 12/27/24 18:19 12/27/24 18:19
Last Documented Vital Signs
Temp Pulse Resp BP Pulse Ox
97.8 F 66 12 149/79 100
12/27/24 18:19 12/27/24 21:54 12/27/24 21:54 12/27/24 21:54 12/27/24 21:54
<Efrem Diaz Jr., PA-C - Last Filed: 12/28/24 00:50>
Orders/Labs/Results
Orders:
Orders
12/27/24 18:29
Iohexol [Omnipaque] See Protocol PO NOW STA
12/27/24 18:30
CT Abd/pel W Iv And Oral Contr Urgent
Comment:
Reason For Exam: R flank pain, stan colored stool
12/27/24 18:39
Urinalysis Reflex To Culture Urgent
Date Specimen was Collected: 12/27/24
Time Specimen was Collected: 18:24
Urine Microscopic Reflex Cult Urgent
Urine Culture Urgent
CHRISTINA Source: U
Specimen Description:
Date Specimen was Collected: 12/27/24
Time Specimen was Collected: 18:24
12/27/24 18:44
Complete Blood Count/With Diff Urgent
Comprehensive Metabolic Panel Urgent
Lipase Urgent
Abnormal Lab Results
12/27/24 12/27/24
18:39 18:44
RBC 3.89 L 10^6/uL
(4.70-6.10)
Hgb 9.4 L g/dL
(13.0-18.0)
Hct 31.3 L %
(39.0-52.0)
MCH 24.2 L pg
(27.0-31.0)
MCHC 30.0 L g/dL
(33.0-37.0)
RDW 18.0 H %
(11.5-14.5)
MPV 10.6 H fL
(7.4-10.4)
Monocytes % 11.4 H %
(1.7-9.3)
Carbon Dioxide 31 H mmol/L
(22-30)
BUN 24 H mg/dl
(9-20)
Alkaline Phosphatase 209 H U/L
(38-126)
Leukocyte Esterase Rfl 1+ A
(Negative)
Urine Bacteria (Reflex) Few A
(Negative)
12/27/24 18:44
12/27/24 18:44
Vital Signs
Initial and Last Documented VS:
Initial Vital Signs
Temp Pulse Resp BP Pulse Ox
97.8 F 80 18 124/76 95
12/27/24 18:19 12/27/24 18:19 12/27/24 18:19 12/27/24 18:19 12/27/24 18:19
Last Documented Vital Signs
Temp Pulse Resp BP Pulse Ox
97.8 F 66 12 149/79 100
12/27/24 18:19 12/27/24 21:54 12/27/24 21:54 12/27/24 21:54 12/27/24 21:54
<Efrem Diaz Jr., PA-C - Last Filed: 12/28/24 00:50>
MDM/Problems Addressed
MDM/Problems Addressed:
69-year-old male presenting to the emergency department today with concerns of stan colored stool for 3 weeks called his GI doctor who told him to go to ER. Vital signs normal on arrival labs at patient's baseline no emergent findings CT scan
without emergent findings patient very well-appearing no distress no reproducible pain appears stable for outpatient follow-up with GI doctor. Return precautions given.
<Eiln Do PA-C - Last Filed: 12/27/24 18:31>
*Pulse Oximetry
SaO2: 95
Oxygen Mode of Delivery: Room air
<Efrem Diaz Jr., PA-C - Last Filed: 12/28/24 00:50>
*Pulse Oximetry
Patient hypoxic: no (100)
*Critical Care Note
Total Time (30-74mins, 75-104mins- exclusive of procedures): Not Applicable
ED Attending Note
<Elin Do PA-C - Last Filed: 12/27/24 18:31>
-
Portions of this chart may have been created with voice recognition software.� Occasional wrong word or��sound alike� substitutions may have occurred due to the inherent limitations of voice recognition software.
Discharge Plan
Departure
Patient Disposition: Home (Routine Discharge)
Date of Disposition: 12/28/24
Time of Disposition: 00:49
Patient with high blood pressure during this ER visit?: No
Condition: Good
Covid-19: Not Applicable
Discharge Problem:
Stan-colored stools
Instructions: Abdominal Pain
Prescriptions:
No Action
esomeprazole magnesium [Nexium] 40 MG capsule,delayed release(DR/EC)
40 mg PO DAILY
ferrous sulfate [iron] 325 MG tablet
325 mg PO BID
ergocalciferol (vitamin D2) 50,000 UNITS capsule
50,000 units PO JACOB@1200
ascorbic acid (vitamin C) [Vitamin C] 1,000 mg Tablet
1,000 mg PO DAILY@1200
cyanocobalamin (vitamin B-12) 1,000 mcg Tablet
1,000 mcg PO DAILY@1200
losartan 50 mg Tablet
50 mg PO BID
Nayzilam 5 mg/spray (0.1 mL) [place],Non-Aerosol
5 mg INTRANASAL DAILYPRN PRN (Reason: SEIZURE >3MINUTES)
clopidogrel [Plavix] 75 mg Tablet
75 mg PO DAILY
amlodipine 5 mg Tablet
5 mg PO DAILY
baclofen 10 mg Tablet
30 mg PO BID@0300,0700
diazepam [Valium] 5 mg Tablet
5 mg PO Q6HPRN PRN (Reason: muscle spasms)
Patient Comments:
11/11/23; #90 filled on 10/20/23 for 23 day supply.
oxycodone 5 mg Tablet
5 mg PO Q4HPRN PRN (Reason: breakthrough pain)
Patient Comments:
11/11/23; #120 tabs filled on 10/14/23 for 30 day supply
modafinil 100 mg Tablet
100 mg PO DAILY@1200
Patient Comments:
11/11/23; #45 modafinil 200mg tabs filled on 10/31/23 for 30 day supply
lamotrigine 100 mg Tablet
100 mg PO BID
carvedilol 3.125 mg Tablet
3.125 mg PO BID@0300,1200
baclofen 20 mg Tablet
40 mg PO DAILY@1900
modafinil [Provigil] 200 mg Tablet
200 mg PO DAILY@0700
Patient Comments:
11/11/23; #45 modafinil 200mg tabs filled on 10/31/23 for 30 day supply
hydrochlorothiazide 25 mg Tablet
25 mg PO DAILY
naloxone 4 mg/actuation [place],Non-Aerosol
1 spray INTRANASAL Q3MPRN PRN (Reason: UNRESPONSIVENESS)
morphine 15 mg Tablet Extended Release
15 mg PO BID Qty: 10 0RF
hydromorphone 1 mg/mL Syringe
1 mg IV Q3HPRN PRN (Reason: severe pain) Qty: 0 0RF
acetaminophen 325 mg Tablet
650 mg PO Q4HPRN PRN (Reason: mild pain/ fever>100.5F) Qty: 0 0RF
Zosyn in dextrose (iso-osm) 3.375 gram/50 mL Piggyback
3.375 g IV Q6H Qty: 0 0RF
Referrals:
Berry Valderrama DO [Family Provider, Family Practice]
Marina Rodriguez DO [Active, Gastroenterology] - Follow up in 5-7 days
Activity Restrictions/Additional Instructions:
You came to the emergency department today with concerns of changes in bowel movements. Here you had a reassuring assessment. Please follow closely with the GI doctor. Return for any worsening, new or concerning symptoms.
Interventions
Interventions:
*Risk Screen - Suicide Last Done: 12/27/24 23:50
*General Assessment Last Done: 12/27/24 23:50
*Neglect/Abuse Screening Last Done: 12/27/24 23:50
*ED- Fall Risk Assessment Last Done: 12/27/24 23:50
*ED COVID-19 Vaccine History Last Done: 12/27/24 23:50
[id number] Assessment Last Done: 12/27/24 23:50
Discharge Date and Time
Print Language: ALBANIAN
[2024-12-27] MEDS: OMNIPAQUE 50 ML PO (18:35)
[2024-12-27 18:55] LABS: Urine Character Clear (Clear)
[2024-12-27 19:00] LABS: Hematocrit 31.3 % (39.0-52.0); Hemoglobin 9.4 g/dL (13.0-18.0); Mean Corp Hgb Conc. 30.0 g/dL (33.0-37.0); Mean Corpuscular Volume 80.5 fL (80.0-94.0); Nucleated Red Blood Cells % 0 % (-); Platelet Count 192 10^3/uL (130-400); Red Cell Dist. Width 18.0 % (11.5-14.5)
[2024-12-27 19:12] LABS: ALT (SGPT) 17 U/L (0-50); AST (SGOT) 32 U/L (17-59); Albumin 4.3 g/dl (3.5-5.0); Alkaline Phosphatase 209 U/L (38-126); Blood Urea Nitrogen 24 mg/dl (9-20); Calcium 8.5 mg/dl (8.4-10.2); Carbon Dioxide 31 mmol/L (22-30); Chloride 103 mmol/L (98-107); Glucose 97 mg/dl (70-99); Lipase 50 U/L (23-300); Potassium 4.5 mmol/L (3.5-5.1); Sodium 139 mmol/L (135-145); Total Protein 7.0 g/dl (6.3-8.2); eGFR > 60.00
[2024-12-27 19:41] LABS: Urine Squamous Cell 0-2 /LPF (Few)
[2024-12-27 19:42] LABS: Urine Red Blood Cell 0-2 /HPF (0-2); Urine White Cell 0-2 /HPF (0-5)
[2024-12-27 21:54] VITALS: BP 149/79
[2024-12-27 23:55] VITALS: BP 140/84
[2024-12-28] VITALS: BP 139/88
[2024-12-28 00:08] VITALS: BMI 24.5
[2024-12-28 01:25] VITALS: BP 132/65
== END 2024-12-28 01:35 | disposition home or self-care (01) ==
LOC: EMR 18:18
PROVIDERS: Emergency Medicine; EMERGENCY PHYSICIAN Emergency Medicine; FAMILY PHYSICIAN Family Medicine
DX: R19.5 Other fecal abnormalities (principal); K21.9 Gastro-esophageal reflux disease without esophagitis; I10 Essential (primary) hypertension; G35 Multiple sclerosis; I34.1 Nonrheumatic mitral (valve) prolapse; Z86.73 Personal history of transient ischemic attack (TIA), and cerebral infarction without residual deficits; Z87.442 Personal history of urinary calculi; Z87.891 Personal history of nicotine dependence; Z90.49 Acquired absence of other specified parts of digestive tract; Z96.643 Presence of artificial hip joint, bilateral; Z96.653 Presence of artificial knee joint, bilateral; Z98.84 Bariatric surgery status
CPT/HCPCS: 99284; 74177; 80053; 81003; 81015; 83690; 85025; 87086; Q9967

== ENCOUNTER 2025-04-18 06:11 | Day surgery (SDC) | payer MEDICARE, OTHER, SELFPAY ==
[2025-04-18] VITALS (7 sets, daily range): BP systolic 93–130; BP diastolic 62–74; BMI 24.6
[2025-04-18] MEDS: NORMOSOL-R/PLASMALYTE-A 1000 IV (07:18)
== END 2025-04-18 09:05 | disposition home or self-care (01) ==
LOC: SDS 06:11
PROVIDERS: ATTENDING PHYSICIAN Orthopaedic Surgery Hand Surgery
DX: G56.01 Carpal tunnel syndrome, right upper limb (principal)
CPT/HCPCS: 64721